=== PATIENT | male | born 1945 | race Caucasian/White ===

== ENCOUNTER 2023-05-05 13:11 | Inpatient (IN) | payer OTHER, SELFPAY ==
[2023-05-05] VITALS (20 sets, daily range): BP systolic 89–113; BP diastolic 53–73; BMI 34.3; BMI 33.9; BMI 33.5
--- NOTE | 2023-05-05 10:08 | EDRN ---
this RN attempted to place PIV and was unsuccessful, the pt states that he has a subq port and the pts does not want it accessed, IV team has been called, pt was bladder scanned as well
--- NOTE | 2023-05-05 10:10 | EDRN ---
provider notified of the pts low blood pressure
--- NOTE | 2023-05-05 10:22 | ED.GENMED ---
History of Present Illness
General
Chief Complaint: Male Genito-Urinary Symptoms
Source: patient and family
Exam Limitations: none
Time Seen by Provider: 05/05/23 09:52
Nursing documentation reviewed up to this point in time: agreed with
Travel History
Have you had any contact with someone who has COVID-19?: No
Do you have any symptoms of coronavirus? Fever > 100 degrees, chills, cough, shortness of breath, sore throat, loss of taste or smell, muscle aches, or headache?: No
History of Present Illness
History of Present Illness:
77-year-old male this with trouble urinating and hematuria saw his urologist yesterday scheduled to have a procedure as an outpatient for circumcision, he has been unable to empty his bladder noted some bleeding today, no fevers, he is on Pradaxa
Past History
Past History
ED Past Medical History: Other (Non-Hodgkin's lymphoma, DVT, traumatic intracranial hemorrhage)
ED Past Surgical History: Other (Craniotomy/evacuation of hematoma)
Social History
Tobacco: Non-smoker
Alcohol: None
Drug: None
Personal:
Living: with family
Employment: Retired
Family History
Family History: Other
Review of Systems
Review of Systems
All Other Systems: Not applicable
Constitutional: Denies fever or fatigue
EENT: Reports no symptoms
Respiratory: Reports no symptoms
Cardiac: Reports no symptoms
: Reports bleeding
Phy Exam
Physical Exam
Physical Exam:
Physical Exam
General: Chronically ill male
Neck: No jaundice
Heart: s1/s2 regular rate and rhythm, no murmur. equal radial pulses.
Lungs: no acute respiratory distress. clear bilaterally
Abdomen: Soft mild suprapubic tenderness
, retracted foreskin question extra skin between the penis and the scrotum
Neuro: alert and oriented.
Skin: no rash
Psychiatric: well kept. interactive and cooperative
Extremities: no edema.
Course
Orders/Labs/Results
Orders:
Orders
05/05/23 10:14
Del Real Placement- Treatment ONCE
Reason for insertion: Acute Retention
05/05/23 10:15
Urinalysis Reflex To Culture Urgent
Date Specimen was Collected: 05/05/23
Time Specimen was Collected: 10:25
05/05/23 10:34
Basic Metabolic Panel Urgent
Complete Blood Count/With Diff Urgent
05/05/23 11:43
CT Abd/pel Without Iv Or Oral Urgent
Comment:
Reason For Exam: arf
0.9% Sodium Chloride 1000 ml [Nss] 2,000 ml IV BOLUS
05/05/23 11:45
Blood Culture Q30M
LOGAN Source: Blood/Venous
Specimen Description:
05/05/23 11:46
Urine Culture Urgent
LOGAN Source: Urine
Specimen Description:
CefTRIAXone [Rocephin] 1,000 mg IV NOW STA
05/05/23 12:15
Blood Culture Q30M
LOGAN Source: Blood/Venous
Specimen Description:
Abnormal Lab Results
05/05/23
10:34
WBC 22.9 H 10^3/uL
(4.8-10.8)
RBC 4.59 L 10^6/uL
(4.70-6.10)
MCH 31.4 H pg
(27.0-31.0)
RDW 14.8 H %
(11.5-14.5)
MPV 11.3 H fL
(7.4-10.4)
Abs Immat Gran (auto) 0.3 H 10^3/uL
(0-0.05)
Absolute Neuts (auto) 19.3 H 10^3/uL
(1.4-6.5)
Absolute Lymphs (auto) 0.6 L 10^3/uL
(1.2-3.4)
Absolute Monos (auto) 2.8 H 10^3/uL
(0.1-0.6)
Immature Gran % 1.1 H %
(0-0.5)
Neutrophils % 84.1 H %
(42.2-75.2)
Lymphocytes % 2.6 L %
(20.5-51.1)
Monocytes % 12.0 H %
(1.7-9.3)
Carbon Dioxide 21 L mmol/L
(22-30)
BUN 45 H mg/dl
(9-20)
Creatinine 3.6 H mg/dL
(0.7-1.3)
Glucose 115 H mg/dl
(70-99)
05/05/23 10:34
05/05/23 10:34
Vital Signs
Initial and Last Documented VS:
Initial Vital Signs
Temp Pulse Resp BP Pulse Ox
98.1 F 107 20 93/62 95
05/05/23 09:29 05/05/23 09:29 05/05/23 09:29 05/05/23 09:29 05/05/23 09:29
Last Documented Vital Signs
Temp Pulse Resp BP Pulse Ox
98.1 F 107 20 91/60 95
05/05/23 09:29 05/05/23 09:29 05/05/23 09:29 05/05/23 11:00 05/05/23 09:29
MDM/Problems Addressed
Differential Diagnosis Includes:
Phimosis retention hematuria
MDM/Problems Addressed:
Phimosis retention hematuria
Chronic conditions affecting care:
Phimosis
Chronic conditions affecting care: Arrhythmia
*EKG
Interpreted by ED Provider?: NA
*Household Appliance Repairer Interpretation
Rate: normal
Interpretation: normal
Heart Rate: 78
Rhythm: sinus
*Critical Care Note
Total Time (30-74mins, 75-104mins- exclusive of procedures): 30
Update Note
Update Note:
Patient having voiding issues, he has a phimosis previously had to go to the ER to have a catheter placed reviewed with urology make sure he is taking his Flomax we will give him a trial of voiding here if not may need to have her procedure patient
family updated
11:45 AM labs are noted we will hydrate started on antibiotics urology considering the intervention will check CT right hydro
ED Attending Note
-
Portions of this chart may have been created with voice recognition software.� Occasional wrong word or��sound alike� substitutions may have occurred due to the inherent limitations of voice recognition software.
Discharge Plan
Departure
Prescriptions:
No Action
allopurinol 100 MG tablet
100 mg PO BID
lamotrigine 100 MG tablet
150 mg PO BID
acetaminophen 325 MG tablet
650 mg PO Q4HPRN PRN (Reason: mild abd pain )
tamsulosin 0.4 MG capsule
0.4 mg PO DAILY Qty: 30 0RF
finasteride 5 MG tablet
5 mg PO DAILY Qty: 30 0RF
dabigatran etexilate 150 mg Capsule
150 mg PO BID
Jardiance 10 mg Tablet
10 mg PO DAILY
furosemide [Lasix] 40 MG tablet
40 mg PO MOWEFR
Referrals:
Kingston Luu MD [Family Provider] -
Interventions
Interventions:
*Risk Screen - Suicide Last Done: 05/05/23 09:57
*General Assessment Last Done: 05/05/23 09:57
*Neglect/Abuse Screening Last Done: 05/05/23 09:57
ED- Fall Risk Assessment Last Done: 05/05/23 09:57
*ED COVID-19 Vaccine History Last Done: 05/05/23 09:29
ED-Male Genitourinary Assessment Last Done: 05/05/23 09:57
--- NOTE | 2023-05-05 10:25 | EDRN ---
this RN was unable to place 3 way indwelling urinary catheter, provider Dr. Osullivan notified
[2023-05-05 10:45] LABS: % Basophils 0.2 % (0-2); % Immature Granulocytes 1.1 % (0-0.5); % Lymphocytes 2.6 % (20.5-51.1); % Neutrophils 84.1 % (42.2-75.2); Absolute Basophils 0.1 10^3/uL (0-0.2); Absolute Immature Granulocytes 0.3 10^3/uL (0-0.05); Absolute Lymphocytes 0.6 10^3/uL (1.2-3.4); Absolute Monocytes 2.8 10^3/uL (0.1-0.6); Absolute Neutrophils 19.3 10^3/uL (1.4-6.5); Hemoglobin 14.4 g/dL (13.0-18.0); Mean Corp Hgb Conc. 33.5 g/dL (33.0-37.0); Mean Corpuscular Hgb 31.4 pg (27.0-31.0); Mean Corpuscular Volume 93.7 fL (80.0-94.0); Mean Platelet Volume 11.3 fL (7.4-10.4); Nucleated Red Blood Cells % 0 % (-); Platelet Count 164 10^3/uL (130-400); Red Blood Cell Count 4.59 10^6/uL (4.70-6.10); Red Cell Dist. Width 14.8 % (11.5-14.5); White Blood Cell Count 22.9 10^3/uL (4.8-10.8)
[2023-05-05 11:05] LABS: Blood Urea Nitrogen 45 mg/dl (9-20); Calcium 9.6 mg/dl (8.4-10.2); Carbon Dioxide 21 mmol/L (22-30); Chloride 104 mmol/L (98-107); Estimated Creatinine Clearance 21 ml/min; Glucose 115 mg/dl (70-99); Sodium 138 mmol/L (135-145); eGFR 16.77
[2023-05-05] MEDS: ROCEPHIN 1000 MG IV (12:09)
[2023-05-05] MEDS: NSS 2000 IV (12:10)
--- NOTE | 2023-05-05 12:56 | HPS.HSE ---
Family Physician
-
Family Physician: Kingston Luu
Chief Complaint
-
Hematuria, urinary retention
History of Present Illness
77-year-old male with chronic phimosis scheduled for an outpatient circumcision next week and presented to the hospital today with complaints of acute urinary retention and hematuria. Noted to be constipated yesterday as well with abdominal
discomfort.
Medical History
Past Medical History
Past Medical History: Reports Other
Additional Past Medical History:
Paroxysmal atrial fibrillation
Non-Hodgkin's lymphoma
RLE Deep vein thrombosis/pulm embolism
ICH/traumatic brain injury
TBI induced seizures
Basal cell cancer
Immunoglobin deficiency
Chronic heart failure reduced EF, dilated cardiomyopathy
Complete heart block
Diverticulosis
CKD 3b
Gout
Phimosis
BPH
Postphlebitic syndrome
Past Surgical History: Reports Other
Additional Past Surgical History:
IVC filter
Permanent pacemaker
Chemotherapy port placement
Mohs surgery for basal cell cancer
Social History
Tobacco: Non-smoker
Alcohol: None
Drug: None
Personal:
Living: With Family
Family History
Family History: Not pertinent
Allergies / Home Medications
Allergies reflects when Allergies were last updated in [facility].
Home Medications with original date entered in [facility]
Allergy/Medication List:
Allergies
Allergy/AdvReac Type Severity Reaction Status Date / Time
acetaminophen [From Percocet] Allergy Unknown Verified 05/05/23 09:34
influenza virus vaccine, Allergy pt states Verified 05/05/23 09:34
specific got sick
[Influenza Virus over the
Vacc,Specific] years with
flu shots,
has not cao
oxycodone [From Percocet] Allergy Unknown Verified 05/05/23 09:34
Home Medications
allopurinol 100 mg tablet 100 mg PO BID Gout 03/21/20
finasteride 5 mg tablet 5 mg PO DAILY #30 tabs 03/27/20
tamsulosin 0.4 mg capsule 0.4 mg PO DAILY #30 caps 03/27/20
acetaminophen 500 mg tablet (Tylenol Extra Strength) 500 mg PO Q4HPRN PRN mild pain 05/05/23
dabigatran etexilate 150 mg capsule 150 mg PO BID 05/05/23
empagliflozin 10 mg tablet (Jardiance) 10 mg PO DAILY 05/05/23
furosemide 40 mg tablet (Lasix) 40 mg PO MOWEFR@0800 05/05/23
lamotrigine 200 mg tablet 200 mg PO BID 05/05/23
lidocaine-prilocaine 2.5 %-2.5 % topical cream 1 applic topical DIRECTED apply to port site 05/05/23
Review of Systems
-
History Source: Patient and Family
A 12 point ROS was completed and negative except as noted: Yes
Abdomen/GI: Reports Constipated
: Reports Difficulty Voiding and Bleeding
Physical Exam
Vital Signs
Vital Signs
Temp Pulse Resp BP Pulse Ox
98.1 F 87 20 99/59 95
05/05/23 09:29 05/05/23 12:04 05/05/23 09:29 05/05/23 12:00 05/05/23 09:29
Physical Exam
General: Well Developed, Well Nourished, No Apparent Distress and Comfortable
HEENT: NormoCephalic, Anicteric and Moist mucous membranes
Respiratory: Clear
Cardiac: S1/S2 and Regular Rhythm
GI: Soft, Non Tender and Non Distended
Genito-urinary: Deferred by me
Musculoskeletal: No Clubbing, No Cyanosis and No Edema
Skin: Warm and Dry
Neuro: AO x 3
Hematologic/Lymphatic: No Lymphadenopathy
Psych: Calm
Laboratory Results
-
05/05/23 10:34
05/05/23 10:34
Laboratory Results
Total Bilirubin Cancelled 05/05/23 10:34
AST Cancelled 05/05/23 10:34
ALT Cancelled 05/05/23 10:34
Alkaline Phosphatase Cancelled 05/05/23 10:34
Impression/Plan
-
PINEDA on CKD 3b - suspect PINEDA due to obstructive process due to known phimosis as well as BPH. CT scan pending. Will need Del Real catheter. Consult urology. Admit to IMU given unstable hemodynamics.
Creatinine 3.6 today, BUN 45. Baseline creatinine appears to be 2.0 from February 2023. Verified in [facility].
Leukocytosis -without signs or symptoms of sepsis. Check urinalysis, rule out UTI. Await cultures. Continue empiric ceftriaxone for now.
Hypotension -possibly due to urinary retention, rule out volume depletion. Received IV fluid bolus in the emergency room. Monitor fluid status closely given chronic heart failure history. Hold furosemide for now.
Paroxysmal atrial fibrillation -hold Pradaxa given gross hematuria.
History of non-Hodgkin's lymphoma
Chronic hypogammaglobulinemia -gets as needed IVIG, Dr. Lozano orders.
Chronic heart failure reduced EF -currently compensated. Hold furosemide in the setting of PINEDA. LVEF 25 to 30% on echocardiogram from February 2023, stage I diastolic dysfunction, no significant valvular disease.
Gout -stable.
History of complete heart block -has permanent pacemaker.
Full code
Updated at the bedside.
[2023-05-05 13:54] LABS: Urine Albumin 3+ (Neg - Trace); Urine Bilirubin Negative (Negative); Urine Glucose 2+ (Negative); Urine Ketone Trace (Negative); Urine Leukocyte 2+ (Negative); Urine Nitrite Negative (Negative); Urine Occult Blood 4+ (Negative); Urine Specific Gravity 1.015 (<1.030); Urine Urobilinogen Negative (Neg - 1+); Urine pH 6.5 (5.0-9.0)
[2023-05-05 13:55] LABS: Urine Character Very Cloudy (Clear); Urine Color Brown
[2023-05-05 14:32] LABS: Urine Bacteria Few (Negative); Urine Red Blood Cell >100 /HPF (0-2); Urine White Cell 26-30 /HPF (0-5)
--- NOTE | 2023-05-05 17:19 | W.IMMPOSTOP ---
Surgical Immed Post Op Note
-
Primary Surgeon: Otis
Pre-op Diagnosis: PINEDA, urinary retention, hematuria, severe phimosis
Post-op Diagnosis: Same
Procedure Performed: foreskin dilation, meatal dilation, cystoscopy, complicated catheter placement
Anesthesia Type: IV sedation
Specimen / Cultures: None/None
Estimated Blood Loss: 3 cc
Drains: 20Fr [place] tip catheter
Complications: None
Operative Findings: significant penoscrotal scarring, significant phmosis w/ thickened prepuce, preputial scarring noted on cysto, anterior urethra patent w/o strictures
[2023-05-05 17:42] LABS: Glucose - Point of Care 96 mg/dl (70-99)
[2023-05-05] MEDS: NSS 1000 IV (18:11)
--- NOTE | 2023-05-05 20:08 | PTCARENOTE ---
Patient arrived to room 3351 at 1900 while I was receiving report from day RN. Pt appears A/O x3 and tearful, support given. [address], Sp02 95%. Del Real draining brown urine to gravity. IVF infusing. Pt eating boxed sandwich. Denies any pain,
nausea, or sob. at bedside; reports last admission pt had hallucinations and possibly sun downing. Pt in a room near nurses station. Call garcia within reach upon leaving room. Bed alarm set for safety.
[2023-05-05] MEDS: LAMICTAL 200 MG PO (20:55)
[2023-05-05] MEDS: ZYLOPRIM 100 MG PO (20:56)
[2023-05-05] MEDS: HEPARIN 5000 UNITS SC (20:56)
[2023-05-06] VITALS (29 sets, daily range): BP systolic 84–122; BP diastolic 49–72; BMI 33.9
--- NOTE | 2023-05-06 08:00 | PTCARENOTE ---
Patient received from night shift manager. Patient resting comfortably in bed. AAO although confused at times, VSS BP a little on the lower side. No events noted overnight. No complaints of pain at this time. Del Real in place, yellow dark urine. Call
garcia in reach.
[2023-05-06] MEDS: FLOMAX 0.400000000000000022 MG PO (08:32)
[2023-05-06] MEDS: HEPARIN 5000 UNITS SC ×2 (08:32→21:11)
[2023-05-06] MEDS: PROSCAR 5 MG PO (08:32)
[2023-05-06] MEDS: ZYLOPRIM 100 MG PO ×2 (08:32→21:11)
[2023-05-06] MEDS: LAMICTAL 200 MG PO ×2 (08:32→21:12)
--- NOTE | 2023-05-06 08:36 | W.PN.HOSP.TC ---
Addendum entered and electronically signed by Bill Alejo DO 05/06/23 13:39:
Yes, hematuria is related to/associated with/exacerbated by Pradaxa use
Original Note:
Today's Communication/Plan
-
Await cultures
Await labs
PT/OT
Check orthostatics
Assessment / Plan
Assessment / Plan
Gen-AAOx3, NAD
HEENT-NC, AT, anicteric, clear oral mm
Neck-supple
CV-reg, no M, +S1/S2
Lungs-clear B/L
Abd-soft, NT, ND
Ext-no edema
Musculoskeletal-no cyanosis, clubbing
Skin-warm and dry
Neuro-grossly non-focal
Psych-calm, cooperative
PINEDA on CKD 3b - suspect PINEDA due to obstructive process due to severe phimosis as well as BPH.� Labs pending for today. CT scan shows mild right renal collecting system and right ureteral dilation without obvious radiopaque calculus.
Leukocytosis -without signs or symptoms of sepsis.� Check urinalysis, rule out UTI.� Await cultures.� Continue empiric ceftriaxone for now.
Hypotension -possibly due to urinary retention, rule out volume depletion.�Hold furosemide for now. Blood pressure still relatively low today. Unclear what his baseline blood pressure is. Does not seem to be symptomatic.
Paroxysmal atrial fibrillation -hold Pradaxa given gross hematuria.
History of non-Hodgkin's lymphoma
Chronic hypogammaglobulinemia -gets as needed IVIG, Dr. Lozano orders.
Chronic heart failure reduced EF -currently compensated.� Hold furosemide in the setting of PINEDA.� LVEF 25 to 30% on echocardiogram from February 2023, stage I diastolic dysfunction, no significant valvular disease.
Gout -stable.
History of complete heart block -has permanent pacemaker.
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
Full code
PT/OT
Anticipated Discharge: 24 - 48 hours
Subjective/Interval History
-
Date of Service: May 06, 2023
Patient seen and examined. No complaints this morning.
Objective Data
-
Labs:
Laboratory Results
05/06/23
08:30
WBC Pending
Hgb Pending
Hct Pending
Plt Count Pending
Sodium Pending
Potassium Pending
Chloride Pending
Carbon Dioxide Pending
BUN Pending
Creatinine Pending
Glucose Pending
Calcium Pending
Total Bilirubin Pending
AST Pending
ALT Pending
Alkaline Phosphatase Pending
Vital Signs:
Vital Signs
Temp Pulse Resp BP Pulse Ox
99.8 F 86 25 90/49 95
05/06/23 07:34 05/06/23 06:30 05/06/23 06:30 05/06/23 06:00 05/06/23 06:30
I&O
05/05/23 05/06/23 05/07/23
06:59 06:59 06:59
Intake Total 1200 / 1200
Output Total 775 / 775
Balance 425 / 425
Review of Systems
-
History Source: Patient
All other systems: Reviewed and negative
--- NOTE | 2023-05-06 09:52 | CM ---
Patient with Hx NHL Dx PINEDA, severe phimosis, BPH, hypotension, PAF, s/p cystoscopy, khanna placement. O2 2L. Receiving IV ceftriaxone. Per nurse assessment; confused.
Spoke with patient's Mery;
The patient resides with his in a 2 story house.
The patient was Independent for ADLs/ambulation without using any assistive devices.
DME - RW, rollator, w/c, commode
VN - prior VN
SNF - [facility] ([facility]
AR - Jr
PCP - Kingston Luu
Pharmacy - [facility], [place]
Offered VN due to khanna and agrees with VN again.
Referral to RAOU[facility] Smith.
Plan home with [facility].
[2023-05-06 11:16] LABS: % Basophils 0.4 % (0-2); % Eosinophils 0.8 % (0-6); % Immature Granulocytes 0.5 % (0-0.5); % Lymphocytes 3.9 % (20.5-51.1); % Monocytes 7.3 % (1.7-9.3); % Neutrophils 87.1 % (42.2-75.2); Absolute Basophils 0.1 10^3/uL (0-0.2); Absolute Eosinophils 0.1 10^3/uL (0-0.7); Absolute Immature Granulocytes 0.1 10^3/uL (0-0.05); Absolute Lymphocytes 0.4 10^3/uL (1.2-3.4); Absolute Monocytes 0.8 10^3/uL (0.1-0.6); Absolute Neutrophils 9.8 10^3/uL (1.4-6.5); Hematocrit 36.6 % (39.0-52.0); Hemoglobin 12.1 g/dL (13.0-18.0); Mean Corp Hgb Conc. 33.1 g/dL (33.0-37.0); Mean Corpuscular Hgb 30.6 pg (27.0-31.0); Mean Corpuscular Volume 92.7 fL (80.0-94.0); Mean Platelet Volume 11.2 fL (7.4-10.4); Nucleated Red Blood Cells % 0 % (-); Platelet Count 111 10^3/uL (130-400); Red Blood Cell Count 3.95 10^6/uL (4.70-6.10); Red Cell Dist. Width 15.3 % (11.5-14.5); White Blood Cell Count 11.3 10^3/uL (4.8-10.8)
[2023-05-06] MEDS: STERILE WATER FOR INJECTION 10 ML IV (12:05)
[2023-05-06] MEDS: ROCEPHIN 1000 MG IV (12:05)
[2023-05-06] MEDS: TYLENOL 500 MG PO (12:10)
--- NOTE | 2023-05-06 12:27 | W.PN.SURGUPD ---
Surgical Update
Surgical Update
Del Real catheter draining clear urine: Enterococcus in urine
Blood cultures negative
Leukocytosis improved
BMP pending
---
Patient comfortable
Will need to hold Pradaxa in anticipation of complex circumcision scheduled for 05/11/23
Keep Del Real until scheduled circumcision: discussed with patient and
[2023-05-06] MEDS: NSS 500 IV (12:51)
[2023-05-06] MEDS: ProAmatine 5 MG PO ×2 (12:51→18:18)
[2023-05-06 13:14] LABS: ALT (SGPT) 17 U/L (0-50); AST (SGOT) 31 U/L (17-59); Albumin 3.2 g/dl (3.5-5.0); Alkaline Phosphatase 64 U/L (38-126); Blood Urea Nitrogen 46 mg/dl (9-20); Calcium 8.2 mg/dl (8.4-10.2); Carbon Dioxide 21 mmol/L (22-30); Chloride 108 mmol/L (98-107); Estimated Creatinine Clearance 28 ml/min; Glucose 104 mg/dl (70-99); Potassium 4.3 mmol/L (3.5-5.1); Sodium 134 mmol/L (135-145); Total Bilirubin 0.5 mg/dl (0.2-1.3); Total Protein 5.2 g/dl (6.3-8.2); eGFR 23.68
--- NOTE | 2023-05-06 13:18 | PN.CDI ---
CDI
- -
CDI:
Physician Documentation Request
Admit Date: 05/05/23 13:11
Dear Doctor Melo,
Clinical Indicators:
Patient with PINEDA due to obstructive process, severe phimosis & BPH.
05/06 PN, 'Paroxysmal atrial fibrillation -hold Pradaxa given gross hematuria.'
Please clarify if there is a relationship between the hematuria and Pradaxa use:
Yes, hematuria is related to/associated with/exacerbated by Pradaxa use.
No, hematuria is not related to/associated with/exacerbated by Pradaxa use but it is due to ___. (Please specify)
Unable to determine
Use of terms such as suspected, likely, concern for, or probable (associated with a specific diagnosis that is being evaluated, monitored, or treated as if it exists) are acceptable and can be coded in the inpatient setting, when documented at the
time of discharge.
Thank you,
DENISE Cunningham RN
CDI Specialist
available via tiger text
Please use your independent medical judgment in providing your response.
[2023-05-06] MEDS: LEVOPHED 250 IV (14:37)
--- NOTE | 2023-05-06 16:32 | PHA.VAN.IN ---
Assessment
- Assessment
Renal Function: Unknown baseline (SCR 3.6-->2.7 since admission)
Concomitant Antimicrobials: ceftriaxone
Plan
- Plan
Initial / Loading Dose: 2000mg - administration pending
Maintenance Regimen: dosing by level
Monitoring: random 05/07 599
Pharmacokinetics Vancomycin I
- -
Patient Age: 77
Patient Sex: Male
Vancomycin Day #: 1
Indication: Genito-Urinary Tract
Requesting Provider: Dr. Alejo
Pertinent Antimicrobial Allergies:
no pertinent antibiotic allergies
Height / Weight:
Height 5 ft 9 in
Actual Weight 104 kg
Pertinent Past Medical History: BMI ~34, CKD
- Vital Signs / Lab Results
Temp Pulse Resp BP Pulse Ox
100.8 F H 68 19 84/52 96
05/06/23 11:47 05/06/23 14:00 05/06/23 14:00 05/06/23 13:44 05/06/23 14:00
Lab Results - Hematology
05/05/23 05/06/23
10:34 11:01
WBC 22.9 H 11.3 H
Lab Results - Chemistry
05/05/23 05/06/23 05/06/23
10:34 11:01 12:46
BUN 45 H Cancelled 46 H
Creatinine 3.6 H Cancelled 2.7 H
Estimated Creat Clear 21 Cancelled 28
Albumin Cancelled Cancelled 3.2 L
Lab Results - Urine
05/05/23
12:06
Urine Nitrite (Reflex) Negative
Leukocyte Esterase Rfl 2+ A
Urine WBC (Reflex) 26-30 A
Ur Squamous Epith Cells 6-10
Urine Bacteria (Reflex) Few A
Microbiology Results
05/05/23 12:06 Blood Culture - Preliminary
Blood/Venous No Growth in 24 hours- Final report to follow
05/05/23 12:06 Blood Culture - Preliminary
Blood/Venous No Growth in 24 hours- Final report to follow
05/05/23 12:06 Urine Culture - Preliminary
Urine Enterococcus species
--- NOTE | 2023-05-06 17:39 | CON.ID ---
Consultation
-
Date/Time Consultation Requested: 05/06/2023 14:03
Date/Time Consultation Performed: 05/06/2023 1730
Requesting Provider: Dr. Alejo
Performing Provider: Dr. Cobos
Reason for Consultation: Leukocytosis; complicated urinary tract infection
Chief Complaint / Past History
History of Present Illness
Jacinto Doherty is a 77-year-old man with a significant past medical history of NHL and chronic phimosis being evaluated at the request of Dr. Alejo regarding a complicated urinary tract infection. History is obtained from chart review, along
with patient interview.
The patient has been dealing with a chronic phimosis, and reports that he was scheduled for an outpatient circumcision next week. He presented to [facility] ER on 05/05/2023 following the development of acute urinary retention along with
hematuria. He reports that over several days he was having retention and ultimately he came to the hospital for further evaluation.
In the emergency room he was found to have a marked leukocytosis. A CT scan was performed which revealed significant urinary retention. Del Real catheter was unable to be passed and Urology was asked to evaluate. The patient went to the OR late last
evening and underwent catheter placement. Urine cultures are now revealing growth of Enterococcus, and Infectious Diseases is asked to comment on further antibiotic management.
Patient denies any fevers or chills prior to admission. Since admission he has developed 1 fever to 100.8 degrees earlier today. He currently denies any pain. He denies any abdominal discomfort. He denies any flank discomfort.
Past History
Additional Past Medical History:
Paroxysmal A-fib
Non-Hodgkin lymphoma
DVT
CVA (traumatic intracranial hemorrhage)
Seizure disorder
Chronic phimosis
Additional Past Surgical History:
IVC filter
PPM placement
Port-A-Cath
Allergy History:
acetaminophen [From Percocet] Allergy (Verified 05/05/23 09:34)
Unknown
influenza virus vaccine, specific [Influenza Virus Vacc,Specific] Allergy (Verified 05/05/23 09:34)
pt states got sick over the years with flu shots, has not cao
Influenza Virus Vaccines Allergy (Verified 05/05/23 17:56)
Unknown
oxycodone [From Percocet] Allergy (Verified 05/05/23 09:34)
Unknown
Medications Reviewed: Yes
Current Antibiotics:
Ceftriaxone
Vancomycin
Social History
Tobacco: Non-Smoker
Alcohol: None
Drug: None
Personal:
Living: With Family
Employment: Retired
Family History
Family History: Not Pertinent
Review of Systems
Vital Signs
Temp Pulse Resp BP Pulse Ox
99.0 F 68 19 84/52 96
05/06/23 15:50 05/06/23 14:00 05/06/23 14:00 05/06/23 13:44 05/06/23 14:00
Physical Exam
Physical Exam
Constitutional: No Acute Distress, Comfortable and Non-toxic
Head: Normocephalic
Eyes: Pupils Equal, Pupils Round, No Conjunctival Hemorrhage and Sclera Anicteric
Oral: No Thrush and No Ulcers
Cardiovascular: Regular Rate and S1/S2; Negative S3/S4
Pulmonary: Clear; Negative Wheezes, Rales or Rhonchi
Gastrointestinal: Soft, Non Tender, Non Distended, Normal Bowel Sounds, No Rebound and No Guarding
Genito-Urinary: Del Real
Extremities: Venous Insufficiency (Bilateral lower extremities); Negative Edema, Cyanosis, Erythema or Splinter Hemorrhage
Skin: Warm and Dry; Negative Rash or Jaundice
Neurological: Awake and Alert
Psychological: Calm
.
Lab / Diagnostic Study Results
05/06/23 11:01
05/06/23 12:46
Abs Immat Gran (auto) 0.1 10^3/uL (0-0.05) H 05/06/23 11:01
Absolute Neuts (auto) 9.8 10^3/uL (1.4-6.5) H 05/06/23 11:01
Absolute Lymphs (auto) 0.4 10^3/uL (1.2-3.4) L 05/06/23 11:01
Absolute Monos (auto) 0.8 10^3/uL (0.1-0.6) H 05/06/23 11:01
Absolute Basos (auto) 0.1 10^3/uL (0-0.2) 05/06/23 11:01
Immature Gran % 0.5 % (0-0.5) 05/06/23 11:01
Neutrophils % 87.1 % (42.2-75.2) H 05/06/23 11:01
Lymphocytes % 3.9 % (20.5-51.1) L 05/06/23 11:01
Monocytes % 7.3 % (1.7-9.3) 05/06/23 11:01
Eosinophils % 0.8 % (0-6) 05/06/23 11:01
Basophils % 0.4 % (0-2) 05/06/23 11:01
Ur Squamous Epith Cells 6-10 /LPF (Few) 05/05/23 12:06
Microbiology Results
Micro:
05/05/23 12:06 Blood Culture - Preliminary
Blood/Venous No Growth in 24 hours- Final report to follow
05/05/23 12:06 Blood Culture - Preliminary
Blood/Venous No Growth in 24 hours- Final report to follow
05/05/23 12:06 Urine Culture - Preliminary
Urine Enterococcus species
Imaging:
05/05/2023 CT abdomen/pelvis without contrast: Mild right renal collecting system and right ureteral dilatation without findings to suggest radiopaque calculus. Unopacified urinary bladder, limited, without gross focal intrinsic abnormalities. IVC
filter is in place. Sigmoid diverticulosis noted. Please see full dictation for additional detail.
Assessment / Plan
Leukocytosis
Enterococcal UTI (complicated)
PINEDA on CKD
Chronic phimosis s/p Del Real placement in OR.
Hx immunoglobulin deficiency
Paroxysmal A-fib
Non-Hodgkin lymphoma
DVT
CVA (traumatic intracranial hemorrhage)
Seizure disorder
Hx of basal cell CA
Chronic heart failure
Diverticulosis
Recommendations:
Discontinue further ceftriaxone and Rocephin.
Will transition to IV ampicillin for the time being pending further cultures, dosed for renal insufficiency.
Monitor white count and temperature curve.
Follow pending cultures.
Await final susceptibility data to guide antibiotic selection and de-escalation.
[2023-05-06] MEDS: VANCOCIN 540 MG IV (18:18)
[2023-05-06] MEDS: AMPICILLIN 108 MG IV (21:11)
[2023-05-07] VITALS (26 sets, daily range): BP systolic 87–114; BP diastolic 50–67; PULSE 70–83; O2SAT 98; BMI 34.8
--- NOTE | 2023-05-07 00:05 | PTCARENOTE ---
Rec'd pt at change of shift. Pt on levophed gtt through SQ port and abx through peripheral IV. Peripheral IV assessed to be infiltrated, abx stopped. IVT called to assess site. Pt maintained MAP >65 for more than 4hrs. Levophed gtt removed. BP
assessed frequently and maintained MAP >65 at this time. called this unit for update on pt status, update provided by this RN and encouraged to call with any additional concerns. Del Real catheter intact with brown to mike drainage. Pt
drowsy, assessed as documented. Resting comfortably at this time, call garcia within reach.
[2023-05-07] MEDS: AMPICILLIN 108 MG IV ×3 (03:27→20:23)
[2023-05-07 04:50] LABS: % Basophils 0.4 % (0-2); % Eosinophils 4.6 % (0-6); % Immature Granulocytes 0.3 % (0-0.5); % Lymphocytes 10.3 % (20.5-51.1); % Monocytes 13.9 % (1.7-9.3); % Neutrophils 70.5 % (42.2-75.2); Absolute Eosinophils 0.3 10^3/uL (0-0.7); Absolute Lymphocytes 0.8 10^3/uL (1.2-3.4); Absolute Neutrophils 5.2 10^3/uL (1.4-6.5); Hematocrit 35.8 % (39.0-52.0); Hemoglobin 11.5 g/dL (13.0-18.0); Mean Corp Hgb Conc. 32.1 g/dL (33.0-37.0); Mean Corpuscular Hgb 30.8 pg (27.0-31.0); Nucleated Red Blood Cells % 0 % (-); Platelet Count 103 10^3/uL (130-400); Red Blood Cell Count 3.73 10^6/uL (4.70-6.10); Red Cell Dist. Width 15.2 % (11.5-14.5); White Blood Cell Count 7.4 10^3/uL (4.8-10.8)
[2023-05-07 05:18] LABS: Blood Urea Nitrogen 44 mg/dl (9-20); Carbon Dioxide 23 mmol/L (22-30); Chloride 106 mmol/L (98-107); Estimated Creatinine Clearance 30 ml/min; Glucose 137 mg/dl (70-99); Potassium 4.2 mmol/L (3.5-5.1); Sodium 138 mmol/L (135-145); eGFR 25.98
[2023-05-07 06:02] LABS: Vancomycin Random 16.5 ug/ml
--- NOTE | 2023-05-07 08:22 | W.PN.HOSP.TC ---
Today's Communication/Plan
-
Continue antibiotics
Increase midodrine dose
Assessment / Plan
Assessment / Plan
Gen-AAOx3, NAD
HEENT-NC, AT, anicteric, clear oral mm
Neck-supple
CV-reg, no M, +S1/S2
Lungs-clear B/L
Abd-soft, NT, ND
Ext-no edema
Musculoskeletal-no cyanosis, clubbing
Skin-warm and dry
Neuro-grossly non-focal
Psych-calm, cooperative
Septic shock -present on admission. Due to UTI, urinary retention, severe phimosis. Blood cultures negative. Urine culture shows Enterococcus species. Appreciate ID input. Continue IV ampicillin. White blood cell count improved, afebrile today.
Briefly required Levophed yesterday now off. Still hypotensive, increase midodrine to 10 mg 3 times daily.
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 CT scan shows mild right renal collecting system and right ureteral dilation without obvious radiopaque calculus. Creatinine coming down, 2.5 today.
Baseline appears to be around 1.9
Acute thrombocytopenia -probably due to sepsis. Monitor for now.
Paroxysmal atrial fibrillation -hold Pradaxa given gross hematuria. Also, plan for complex circumcision on May 11 as per urology.
Severe phimosis -plan for circumcision on May 11. Hold Pradaxa.
History of non-Hodgkin's lymphoma
Chronic hypogammaglobulinemia -gets as needed IVIG, Dr. Lozano orders.
Chronic heart failure reduced EF -currently compensated.� Hold furosemide in the setting of PINEDA.� LVEF 25 to 30% on echocardiogram from February 2023, stage I diastolic dysfunction, no significant valvular disease.
Gout -stable.
History of complete heart block -has permanent pacemaker.
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
Full code
PT/OT
Anticipated Discharge: > 48 hours
Subjective/Interval History
-
Date of Service: May 07, 2023
Patient seen and examined. No complaints.
Objective Data
-
Labs:
Laboratory Results
05/07/23
04:27
WBC 7.4
Hgb 11.5 L
Hct 35.8 L
Plt Count 103 L
Sodium 138
Potassium 4.2
Chloride 106
Carbon Dioxide 23
BUN 44 H
Creatinine 2.5 H
Glucose 137 H
Calcium 8.0 L
Vital Signs:
Vital Signs
Temp Pulse Resp BP Pulse Ox
99.2 F 70 21 90/61 95
05/07/23 03:25 05/07/23 06:18 05/07/23 06:18 05/07/23 06:18 05/07/23 06:18
I&O
05/06/23 05/07/23 05/08/23
06:59 06:59 06:59
Intake Total 1200 / 1200 1985 / 1985
Output Total 775 / 775 1850 / 1850
Balance 425 / 425 136 / 136
Review of Systems
-
History Source: Patient
All other systems: Reviewed and negative
--- NOTE | 2023-05-07 08:30 | PTCARENOTE ---
Patient received from electromechanical assembly technician. Patient resting comfortably in bed, PT to work with patient and get him to the chair. AAO although still confused at times, VSS. BP more stable and off Levo at this time. Midodrine increased to 10mg. No events
noted overnight. No complaints of pain at this time. Del Real in place, yellow dark urine. Call garcia in reach.
--- NOTE | 2023-05-07 08:58 | W.PN.UPDATE ---
Update Note
Progress Note Update
Leukocytosis resolved
Creatinine improving
Del Real draining well
Foreskin phimotic with dense adhesions
---
Continue antibiotics
Hold anticoagulant therapies in anticipation of complex circumcision 05/11/23
[2023-05-07] MEDS: HEPARIN 5000 UNITS SC ×2 (09:33→19:48)
[2023-05-07] MEDS: ProAmatine 10 MG PO ×3 (09:33→17:39)
[2023-05-07] MEDS: ZYLOPRIM 100 MG PO ×2 (09:34→19:48)
[2023-05-07] MEDS: LAMICTAL 200 MG PO ×2 (09:34→19:47)
[2023-05-07] MEDS: PROSCAR 5 MG PO (09:34)
[2023-05-07] MEDS: FLOMAX 0.400000000000000022 MG PO (09:34)
[2023-05-07] MEDS: ProAmatine PO (09:39)
--- NOTE | 2023-05-07 10:43 | VNURNOTE ---
Home Health Liaison spoke with patient's Mery by phone at 1030 to discuss [facility] nurse/therapy, visits, schedule and homebound status. Mery is agreeable and understands that visits at home will be 2-3 x per week to assess and teach medical
management.
Mery is aware that [facility] will contact them for start of care in 1-2 days after discharge from .
[facility] referral accepted in [facility].
--- NOTE | 2023-05-07 15:21 | W.PN.ID1 ---
Date of Service
Date of Service: May 07, 2023
Today's Communication
Continue antibiotics
Assessment / Plan
Leukocytosis
Enterococcal UTI (complicated)
PINEDA on CKD
Chronic phimosis s/p Del Real placement in OR.
Hx immunoglobulin deficiency
Paroxysmal A-fib
Non-Hodgkin lymphoma
DVT
CVA (traumatic intracranial hemorrhage)
Seizure disorder
Hx of basal cell CA
Chronic heart failure
Diverticulosis
Recommendations:
Continue ampicillin.
Monitor white count and temperature curve.
Follow pending cultures.
����������������������������������������������������������
Chief Complaint
-: UTI
Subjective / Review of Systems
Review of Systems: No Fever and No Chills
Vital Signs / Physical Exam
Vital Signs
Vital Signs
Temp Pulse Resp BP Pulse Ox
97.6 F 68 23 100/62 96
05/07/23 11:14 05/07/23 12:42 05/07/23 11:00 05/07/23 12:42 05/07/23 11:06
Physical Exam
Constitutional: No Acute Distress, Comfortable and Non-toxic
Eyes: Sclera Anicteric
Cardiovascular: S1/S2; Negative S3/S4
Pulmonary: Clear and Non Labored
Gastrointestinal: Soft, Non Tender and Non Distended
Genito-Urinary: Del Real and Turbid Urine; Negative Hematuria
Extremities: Negative Edema, Cyanosis or Erythema
Neurological: Awake and Alert
Psychological: Calm
Objective Data
Lab Data
Lab Results
05/07/23 04:27
05/07/23 04:27
Estimated Creat Clear 30 ml/min 05/07/23 04:27
Total Bilirubin 0.5 mg/dl (0.2-1.3) 05/06/23 12:46
AST 31 U/L (17-59) 05/06/23 12:46
ALT 17 U/L (0-50) 05/06/23 12:46
Alkaline Phosphatase 64 U/L (38-126) 05/06/23 12:46
Most recent labs reviewed.
Micro Results:
05/05/23 12:06 Blood Culture - Preliminary
Blood/Venous No Growth in 48 hours- Final report to follow
05/05/23 12:06 Blood Culture - Preliminary
Blood/Venous No Growth in 48 hours- Final report to follow
05/05/23 12:06 Urine Culture - Final
Urine Enterococcus faecalis
Urine Culture Final 05/07/23-1017
CC: Greater than 100,000 CFU/ML Enterococcus faecalis
Organism 1 Enterococcus faecalis
1. Enterococcus faecalis
M.I.C. RX
--------- ---
Ampicillin <=2 S
Gentamicin Synergy Screen <=500 S
Levofloxacin <=1 S
Nitrofurantoin-Urine Only <=32 S
Tetracycline >8 R
Vancomycin 2 S
Imaging:
05/05/2023 CT abdomen/pelvis without contrast: Mild right renal collecting system and right ureteral dilatation without findings to suggest radiopaque calculus. Unopacified urinary bladder, limited, without gross focal intrinsic abnormalities. IVC
filter is in place. Sigmoid diverticulosis noted. Please see full dictation for additional detail.
[2023-05-07] MEDS: MIRALAX 17 GRAMS PO (15:59)
[2023-05-07] MEDS: COLACE 100 MG PO (19:47)
[2023-05-08] VITALS (23 sets, daily range): BP systolic 91–132; BP diastolic 55–115; BMI 34.4
--- NOTE | 2023-05-08 02:10 | PTCARENOTE ---
Pt AAOx3, did not exhibit forgetfulness during conversations with this RN. Pt discussed plan of care and familial support with this RN. Ambulated stand/pivot to [facility] [place] with assist of 2. Pt did have difficulty sitting comfortably on the commode d/t
scrotal pain. This RN was able to place an absorbent pad underneath the pt's scrotum to help relieve pressure. Pt attempted to have a BM, but was unsuccessful. AV paced on monitoring analyst. Pt was on RA at the start of this RN's shift, but fell
asleep and SaO2 was observed to fall to 83%. Pt woken up and placed on 1L O2 with relief to 97%. Assessment as documented.
[2023-05-08] MEDS: AMPICILLIN 108 MG IV (04:47)
[2023-05-08 05:20] LABS: % Basophils 0.3 % (0-2); % Immature Granulocytes 0.5 % (0-0.5); % Lymphocytes 14.6 % (20.5-51.1); % Neutrophils 60.6 % (42.2-75.2); Absolute Eosinophils 0.4 10^3/uL (0-0.7); Absolute Lymphocytes 0.9 10^3/uL (1.2-3.4); Absolute Monocytes 1.1 10^3/uL (0.1-0.6); Absolute Neutrophils 3.6 10^3/uL (1.4-6.5); Hematocrit 36.2 % (39.0-52.0); Hemoglobin 11.6 g/dL (13.0-18.0); Mean Corpuscular Hgb 30.6 pg (27.0-31.0); Mean Corpuscular Volume 95.5 fL (80.0-94.0); Mean Platelet Volume 11.3 fL (7.4-10.4); Nucleated Red Blood Cells % 0 % (-); Platelet Count 117 10^3/uL (130-400); Red Blood Cell Count 3.79 10^6/uL (4.70-6.10); Red Cell Dist. Width 15.1 % (11.5-14.5)
[2023-05-08 05:47] LABS: Blood Urea Nitrogen 40 mg/dl (9-20); Carbon Dioxide 23 mmol/L (22-30); Chloride 106 mmol/L (98-107); Estimated Creatinine Clearance 38 ml/min; Glucose 117 mg/dl (70-99); Potassium 4.3 mmol/L (3.5-5.1); Sodium 138 mmol/L (135-145); eGFR 33.95
--- NOTE | 2023-05-08 05:51 | PTCARENOTE ---
Assumed care for pt 3a-7a. pt aaox3, pleasant. no c/o sob or pain. av paced, 1LHS. ivabx given. all assessment findings the same. Thorough khanna care given, top of penis weeping serosanguineous & purulent drainage. No other issues at this time. Pt
sleeping, call garcia in reach.
--- NOTE | 2023-05-08 07:28 | W.PN.URO.CBU ---
Today's Communication / Plan
-
continue khanna and antibx
OR wednesday for circ
Assessment / Plan
-
urinary retention
phimosis
UTI
s/p foreskin dilation and cysto/khanna placement
urine clear and khanna in place
on pcn for enterococcal UTI
blood thinners on hold in anticipation of OR circ on wednesday
Diagnosis
-
Date of Service: May 08, 2023
-
Patient Diagnosis:
phimosis with urinary retention
enterococcal UTI
Subjective
-
pt asleep
khanna in place
urine clear
Objective
-
Vital Signs
Temp Pulse Resp BP Pulse Ox
98.1 F 62 17 95/61 95
05/08/23 03:18 05/08/23 06:00 05/08/23 06:00 05/08/23 06:00 05/08/23 06:00
Intake and Output
05/07/23 05/08/23 05/09/23
06:59 06:59 06:59
Intake Total 1985 / 1985 1740 / 1740
Output Total 1849 1750 / 1750
Balance 136 / 136 -10 / -10
Intake:
Oral fluids 700 / 700 1440 / 1440
IV fluids (Total) 500 / 500
IV piggybacks 786 / 786 300 / 300
Output:
Urine, Khanna 185 / 1849 750 / 750
Urine, Voided 1000 / 1000
Laboratory Results
05/08/23 04:46
05/08/23 04:46
Physical Exam
-
General - no acute distress
Abdomen - soft, non-tender
Genitalia - khanna- phimotic foreskin- urine clear
--- NOTE | 2023-05-08 08:12 | W.PN.HOSP.TC ---
Today's Communication/Plan
-
Increase bowel regimen
Monitor blood pressures
Continue PT/OT
Possible transfer out of IMU
Assessment / Plan
Assessment / Plan
Gen-AAOx3, NAD
HEENT-NC, AT, anicteric, clear oral mm
Neck-supple
CV-reg, no M, +S1/S2
Lungs-clear B/L
Abd-soft, NT, ND
Ext-no edema
Musculoskeletal-no cyanosis, clubbing
Skin-warm and dry
Neuro-grossly non-focal
Psych-calm, cooperative
Septic shock -present on admission. Due to UTI, urinary retention, severe phimosis. Blood cultures negative. Urine culture shows Enterococcus faecalis. Appreciate ID input. Continue IV ampicillin. White blood cell count improved, afebrile
today.
Blood pressure still relatively low despite midodrine 10 mg 3 times daily. Monitor for now.
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 CT scan shows mild right renal collecting system and right ureteral dilation without obvious radiopaque calculus. Creatinine coming down, 2.0 today.
Baseline appears to be around 1.9
Acute thrombocytopenia -probably due to sepsis. Monitor for now. Counts relatively stable.
Paroxysmal atrial fibrillation -hold Pradaxa given gross hematuria. Also, plan for complex circumcision on May 11 as per urology.
Severe phimosis -plan for circumcision on May 11. Hold Pradaxa.
Constipation -increase bowel regimen.
History of non-Hodgkin's lymphoma
Chronic hypogammaglobulinemia -gets as needed IVIG, Dr. Lozano orders.
Chronic heart failure reduced EF -currently compensated.� Hold furosemide in the setting of PINEDA.� LVEF 25 to 30% on echocardiogram from February 2023, stage I diastolic dysfunction, no significant valvular disease.
Gout -stable.
History of complete heart block -has permanent pacemaker.
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
Full code
PT/OT -SNF recommended on discharge.
Anticipated Discharge: > 48 hours
Subjective/Interval History
-
Date of Service: May 08, 2023
Patient seen and examined. Slept well last night. No complaints today.
Objective Data
-
Labs:
Laboratory Results
05/08/23
04:46
WBC 6.0
Hgb 11.6 L
Hct 36.2 L
Plt Count 117 L
Sodium 138
Potassium 4.3
Chloride 106
Carbon Dioxide 23
BUN 40 H
Creatinine 2.0 H
Glucose 117 H
Calcium 8.0 L
Vital Signs:
Vital Signs
Temp Pulse Resp BP Pulse Ox
98.1 F 62 17 95/61 95
05/08/23 03:18 05/08/23 06:00 05/08/23 06:00 05/08/23 06:00 05/08/23 06:00
I&O
05/07/23 05/08/23 05/09/23
06:59 06:59 06:59
Intake Total 1985 1740 / 1740
Output Total 1849 175 / 175
Balance 136 / 136 -10 / -10
Review of Systems
-
History Source: Patient
All other systems: Reviewed and negative
--- NOTE | 2023-05-08 08:24 | W.PN.ID1 ---
Date of Service
Date of Service: May 08, 2023
Today's Communication
Transition to oral amoxicillin.
Assessment / Plan
Leukocytosis
Enterococcal UTI (complicated)
PINEDA on CKD
Chronic phimosis s/p Del Real placement in OR.
Hx immunoglobulin deficiency
Paroxysmal A-fib
Non-Hodgkin lymphoma
DVT
CVA (traumatic intracranial hemorrhage)
Seizure disorder
Hx of basal cell CA
Chronic heart failure
Diverticulosis
Recommendations:
Overall clinical improvement noted. White count has normalized.
Transition to oral amoxicillin 500 mg TID
Monitor white count and temperature curve.
Await circumcision
����������������������������������������������������������
Chief Complaint
-: UTI
Subjective / Review of Systems
Review of Systems: No Fever and No Chills
Vital Signs / Physical Exam
Vital Signs
Vital Signs
Temp Pulse Resp BP Pulse Ox
98.1 F 67 25 91/77 96
05/08/23 03:18 05/08/23 08:16 05/08/23 08:16 05/08/23 08:16 05/08/23 08:17
Physical Exam
Constitutional: No Acute Distress, Comfortable and Non-toxic
Eyes: No Conjunctival Hemorrhage and Sclera Anicteric
Cardiovascular: S1/S2; Negative S3/S4
Pulmonary: Symmetric and Non Labored
Gastrointestinal: Soft, Non Tender and Non Distended
Genito-Urinary: Del Real, Clear Urine and Other (Decreased penile inflammation.)
Extremities: Negative Edema or Cyanosis
Neurological: Awake and Alert
Psychological: Calm
Objective Data
Lab Data
Lab Results
05/08/23 04:46
05/08/23 04:46
Estimated Creat Clear 38 ml/min 05/08/23 04:46
Total Bilirubin 0.5 mg/dl (0.2-1.3) 05/06/23 12:46
AST 31 U/L (17-59) 05/06/23 12:46
ALT 17 U/L (0-50) 05/06/23 12:46
Alkaline Phosphatase 64 U/L (38-126) 05/06/23 12:46
Most recent labs reviewed.
Micro Results:
05/05/23 12:06 Blood Culture - Preliminary
Blood/Venous No Growth in 48 hours- Final report to follow
05/05/23 12:06 Blood Culture - Preliminary
Blood/Venous No Growth in 48 hours- Final report to follow
05/05/23 12:06 Urine Culture - Final
Urine Enterococcus faecalis
Urine Culture Final 05/07/23-1017
CC: Greater than 100,000 CFU/ML Enterococcus faecalis
Organism 1 Enterococcus faecalis
1. Enterococcus faecalis
M.I.C. RX
--------- ---
Ampicillin <=2 S
Gentamicin Synergy Screen <=500 S
Levofloxacin <=1 S
Nitrofurantoin-Urine Only <=32 S
Tetracycline >8 R
Vancomycin 2 S
Imaging:
05/05/2023 CT abdomen/pelvis without contrast: Mild right renal collecting system and right ureteral dilatation without findings to suggest radiopaque calculus. Unopacified urinary bladder, limited, without gross focal intrinsic abnormalities. IVC
filter is in place. Sigmoid diverticulosis noted. Please see full dictation for additional detail.
[2023-05-08] MEDS: FLOMAX 0.400000000000000022 MG PO (08:29)
[2023-05-08] MEDS: HEPARIN 5000 UNITS SC ×2 (08:29→20:42)
[2023-05-08] MEDS: COLACE 100 MG PO (08:29)
[2023-05-08] MEDS: MIRALAX 17 GRAMS PO (08:30)
[2023-05-08] MEDS: LAMICTAL 200 MG PO ×2 (08:30→20:42)
[2023-05-08] MEDS: PROSCAR 5 MG PO (08:33)
[2023-05-08] MEDS: ZYLOPRIM 100 MG PO ×2 (08:33→20:42)
[2023-05-08] MEDS: ProAmatine 10 MG PO ×3 (08:33→17:28)
[2023-05-08] MEDS: DULCOLAX 10 MG RECTAL (08:34)
[2023-05-08] MEDS: AMOXIL 500 MG PO ×3 (12:47→23:51)
--- NOTE | 2023-05-08 12:55 | PTCARENOTE ---
Patient constipated at the start of shift. Dulcolax and Miralax administered as per doctors orders. Patient has had many bowel movements since on commode. Khanna draining clear yellow urine, khanna care provided, Penis has swollen and reddened glands
extending down shaft. Oral antibiotics continues. Patient is for urology procedure on Wednesday. Family at bedside and all were educated about plan of care.
[2023-05-08] MEDS: COLACE PO (20:35)
[2023-05-09] VITALS (12 sets, daily range): BP systolic 101–128; BP diastolic 56–87; PULSE 65; O2SAT 94; BMI 34.9
--- NOTE | 2023-05-09 04:33 | PTCARENOTE ---
No acute changes overnight. Pt denies any pain and does not offer any complaints. Del Real catheter draining clear yellow urine at bedside. Stat lock replaced. Assisted to BSC x1 for small loose BM. Pt would benefit from physical therapy as he is very
weak and slow on his feet. Sp02 88-89% on RA; Placed on 1L NC and Sp02 increased to 93-95%. Tele showing paced rhythms. BP WNL. Call garcia within reach. Bed alarm set for safety.
[2023-05-09 05:26] LABS: % Basophils 0.7 % (0-2); % Eosinophils 5.6 % (0-6); % Immature Granulocytes 0.7 % (0-0.5); % Lymphocytes 21.5 % (20.5-51.1); % Monocytes 14.1 % (1.7-9.3); % Neutrophils 57.4 % (42.2-75.2); Absolute Eosinophils 0.3 10^3/uL (0-0.7); Absolute Lymphocytes 1.2 10^3/uL (1.2-3.4); Absolute Monocytes 0.8 10^3/uL (0.1-0.6); Absolute Neutrophils 3.3 10^3/uL (1.4-6.5); Hematocrit 38.2 % (39.0-52.0); Hemoglobin 12.1 g/dL (13.0-18.0); Mean Corp Hgb Conc. 31.7 g/dL (33.0-37.0); Mean Corpuscular Hgb 30.4 pg (27.0-31.0); Mean Platelet Volume 11.2 fL (7.4-10.4); Nucleated Red Blood Cells % 0 % (-); Platelet Count 132 10^3/uL (130-400); Red Blood Cell Count 3.98 10^6/uL (4.70-6.10); Red Cell Dist. Width 14.7 % (11.5-14.5); White Blood Cell Count 5.7 10^3/uL (4.8-10.8)
[2023-05-09 05:49] LABS: Blood Urea Nitrogen 32 mg/dl (9-20); Calcium 8.7 mg/dl (8.4-10.2); Carbon Dioxide 20 mmol/L (22-30); Chloride 111 mmol/L (98-107); Estimated Creatinine Clearance 42 ml/min; Glucose 101 mg/dl (70-99); Potassium 4.5 mmol/L (3.5-5.1); Sodium 137 mmol/L (135-145); eGFR 38.53
--- NOTE | 2023-05-09 07:43 | W.PN.URO.CBU ---
Today's Communication / Plan
-
treating UTI
to OR wednesday with dr watson
Assessment / Plan
-
urinary retention
phimosis
UTI
s/p foreskin dilation and cysto/khanna placement
urine clear and khanna in place
on pcn for enterococcal UTI
blood thinners on hold in anticipation of OR circ on wednesday
Diagnosis
-
Date of Service: May 09, 2023
-
Patient Diagnosis:
phimosis with urinary retention
enterococcal UTI
Subjective
-
pt awake- without complaint
khanna in place- urine clear
on amox for UTI
Objective
-
Vital Signs
Temp Pulse Resp BP Pulse Ox
98.4 F 65 15 112/67 97
05/09/23 03:09 05/09/23 06:00 05/09/23 06:00 05/09/23 06:00 05/09/23 06:00
Intake and Output
05/08/23 05/09/23 05/10/23
06:59 06:59 06:59
Intake Total 1740 / 1740 240 / 240
Output Total 1750 / 1750 1450 / 1450
Balance -10 / -10 -1210 / -1210
Intake:
Oral fluids 1440 / 1440 240 / 240
IV piggybacks 300 / 300
Output:
Urine, Khanna 750 / 750 1450 / 1450
Urine, Voided 1000 / 1000
Laboratory Results
05/09/23 04:48
05/09/23 04:48
Physical Exam
-
General - no acute distress
--- NOTE | 2023-05-09 08:16 | W.PN.HOSP.TC ---
Today's Communication/Plan
-
Transfer out of IMU
Assessment / Plan
Assessment / Plan
Gen-AAOx3, NAD, obese
HEENT-NC, AT, anicteric, clear oral mm
Neck-supple
CV-reg, no M, +S1/S2
Lungs-clear B/L
Abd-soft, NT, ND
Ext-no edema
Musculoskeletal-no cyanosis, clubbing
Skin-warm and dry
Neuro-grossly non-focal
Psych-calm, cooperative
Septic shock -present on admission. Due to UTI, urinary retention, severe phimosis. Blood cultures negative. Urine culture shows Enterococcus faecalis. Appreciate ID input. Now on amoxicillin. White blood cell count improved, afebrile today.
Blood pressure much improved on midodrine 10 mg 3 times daily.
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 CT scan shows mild right renal collecting system and right ureteral dilation without obvious radiopaque calculus. Creatinine coming down, 2.0 today.
Baseline appears to be around 1.9
Acute thrombocytopenia -probably due to sepsis. Platelet count improving.
Paroxysmal atrial fibrillation -hold Pradaxa given gross hematuria. Also, plan for complex circumcision on May 11 as per urology.
Severe phimosis -plan for circumcision on May 11. Hold Pradaxa.
Constipation -increase bowel regimen.
History of non-Hodgkin's lymphoma
Chronic hypogammaglobulinemia -gets as needed IVIG, Dr. Lozano orders.
Chronic heart failure reduced EF -currently compensated.� Hold furosemide in the setting of PINEDA.� LVEF 25 to 30% on echocardiogram from February 2023, stage I diastolic dysfunction, no significant valvular disease.
Gout -stable.
History of complete heart block -has permanent pacemaker.
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
Full code
PT/OT -SNF recommended on discharge.
Transfer out of IMU.
Anticipated Discharge: > 48 hours
Subjective/Interval History
-
Date of Service: May 09, 2023
Patient seen and examined. Slept well. No complaints.
Objective Data
-
Labs:
Laboratory Results
05/09/23
04:48
WBC 5.7
Hgb 12.1 L
Hct 38.2 L
Plt Count 132
Sodium 137
Potassium 4.5
Chloride 111 H
Carbon Dioxide 20 L
BUN 32 H
Creatinine 1.8 H
Glucose 101 H
Calcium 8.7
Vital Signs:
Vital Signs
Temp Pulse Resp BP Pulse Ox
98.4 F 65 15 112/67 97
05/09/23 07:55 05/09/23 06:00 05/09/23 06:00 05/09/23 06:00 05/09/23 06:00
I&O
05/08/23 05/09/23 05/10/23
06:59 06:59 06:59
Intake Total 1740 / 1740 240 / 240
Output Total 1750 / 1750 1450 / 1450
Balance -10 / -10 -1210 / -1210
Review of Systems
-
History Source: Patient
All other systems: Reviewed and negative
[2023-05-09] MEDS: ProAmatine 10 MG PO ×3 (08:57→17:03)
[2023-05-09] MEDS: LAMICTAL 200 MG PO ×2 (08:58→20:22)
[2023-05-09] MEDS: FLOMAX 0.400000000000000022 MG PO (08:58)
[2023-05-09] MEDS: COLACE 100 MG PO ×2 (08:59→20:21)
[2023-05-09] MEDS: ZYLOPRIM 100 MG PO ×2 (08:59→20:22)
[2023-05-09] MEDS: AMOXIL 500 MG PO ×2 (08:59→17:02)
[2023-05-09] MEDS: HEPARIN 5000 UNITS SC ×2 (09:00→20:22)
[2023-05-09] MEDS: MIRALAX 17 GRAMS PO (09:00)
[2023-05-09] MEDS: PROSCAR 5 MG PO (09:10)
--- NOTE | 2023-05-09 12:53 | PTCARENOTE ---
Pt AAOx3 no pain no distress. Del Real remains in place and draining yellow urine.
--- NOTE | 2023-05-09 21:37 | PTCARENOTE ---
Report called to DALJIT Scott on . Patient and updated on transfer. All belongings packed up. Pt transferred to room 413 via wheelchair on portable tele monitor with belongings.
[2023-05-10] VITALS (7 sets, daily range): BP systolic 106–132; BP diastolic 59–69; PULSE 66; O2SAT 95; BMI 34.4
[2023-05-10] MEDS: AMOXIL 500 MG PO ×4 (00:32→23:26)
[2023-05-10 05:57] LABS: Blood Urea Nitrogen 32 mg/dl (9-20); Calcium 8.8 mg/dl (8.4-10.2); Carbon Dioxide 24 mmol/L (22-30); Chloride 104 mmol/L (98-107); Estimated Creatinine Clearance 40 ml/min; Glucose 97 mg/dl (70-99); Sodium 138 mmol/L (135-145); eGFR 36.11
--- NOTE | 2023-05-10 08:35 | W.PN.HOSP.TC ---
Addendum entered and electronically signed by Derick Tang MD 05/11/23 15:12:
no ivig and no chemo after surgery-needs to recover from surgery and then can be evaluated several weeks down the road with outpatient oncology if and when needs chemo but none for the conceivable future at this point in time.
Original Note:
Today's Communication/Plan
-
Continue antibiotics, cardiology evaluation, plan for surgery tomorrow.
Assessment / Plan
Assessment / Plan
Gen-AAOx3, NAD, obese
HEENT-NC, AT, anicteric, clear oral mm
Neck-supple
CV-reg, no M, +S1/S2
Lungs-clear B/L
Abd-soft, NT, ND
Ext-no edema
Musculoskeletal-no cyanosis, clubbing
Skin-warm and dry
Neuro-grossly non-focal
Psych-calm, cooperative
A/P:
Septic shock -present on admission. Due to UTI, urinary retention, severe phimosis. Blood cultures negative. Urine culture shows Enterococcus faecalis. Appreciate ID input. Now on amoxicillin. White blood cell count improved, afebrile today.
Blood pressure much improved on midodrine 10 mg 3 times daily. Discussed with family at bedside today on 05/10. They had many questions today and answered them to their satisfaction. Discussed with urology as well today on 05/10.
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 CT scan shows mild right renal collecting system and right ureteral dilation without obvious radiopaque calculus. Creatinine coming down, 1.9 today.
Baseline appears to be around 1.9
Acute thrombocytopenia -probably due to sepsis. Platelet count improving.
Paroxysmal atrial fibrillation -hold Pradaxa given gross hematuria. Also, plan for complex circumcision on May 11 as per urology.
Severe phimosis -plan for circumcision on May 11. Hold Pradaxa. Given cardiac risk factors, will obtain cardiology preop evaluation.
Constipation -increase bowel regimen.
History of non-Hodgkin's lymphoma
Chronic hypogammaglobulinemia -gets as needed IVIG, Dr. Lozano orders.
Chronic heart failure reduced EF -currently compensated.� Hold furosemide in the setting of PINEDA.� LVEF 25 to 30% on echocardiogram from February 2023, stage I diastolic dysfunction, no significant valvular disease. Given cardiac risk factors, will
obtain cardiology preop eval
Gout -stable.
History of complete heart block -has permanent pacemaker.
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
Full code
PT/OT -SNF recommended on discharge.
DVT prophylaxis-he is on heparin SQ--> heparin given this morning but hold any future heparin in preparation for upcoming surgery. Start SCDs for DVT prophylaxys.
Total time spent on today's encounter was 52 minutes which included time spent in counseling the patient/family regarding diagnosis and treatment plan as listed above, goals of care, and symptom management. Case was discussed with nursing staff,
specialists, and care coordinators/case management. All labs and imaging personally reviewed by me. Remainder the time spent in detailed review of previous records, lab data, imaging, and other medical provider documentation.
Anticipated Discharge: > 48 hours
Subjective/Interval History
-
Date of Service: May 10, 2023
Patient has any chest pain or shortness of breath. Del Real catheter in place with yellow urine. Afebrile
Objective Data
-
Labs:
Laboratory Results
05/10/23
04:17
Sodium 138
Potassium 4.0
Chloride 104
Carbon Dioxide 24
BUN 32 H
Creatinine 1.9 H
Glucose 97
Calcium 8.8
Vital Signs:
Vital Signs
Temp Pulse Resp BP Pulse Ox
98 F 67 20 119/59 95
05/10/23 07:21 05/10/23 07:21 05/10/23 07:21 05/10/23 07:21 01/29/24 07:21
I&O
05/09/23 05/10/23 05/11/23
06:59 06:59 06:59
Intake Total 240 / 240
Output Total 1450 / 1450 800 / 800 600 / 600
Balance -1210 / -1210 -800 / -800 -600 / -600
Review of Systems
-
All other systems: Reviewed and negative
[2023-05-10] MEDS: ProAmatine 10 MG PO ×3 (09:18→17:37)
[2023-05-10] MEDS: MIRALAX 17 GRAMS PO (09:18)
[2023-05-10] MEDS: FLOMAX 0.400000000000000022 MG PO (09:18)
[2023-05-10] MEDS: COLACE 100 MG PO ×2 (09:18→20:14)
[2023-05-10] MEDS: HEPARIN 5000 UNITS SC (09:19)
[2023-05-10] MEDS: PROSCAR 5 MG PO (09:19)
[2023-05-10] MEDS: ZYLOPRIM 100 MG PO ×2 (09:19→20:13)
[2023-05-10] MEDS: LAMICTAL 200 MG PO ×2 (09:19→20:14)
--- NOTE | 2023-05-10 12:19 | CON.CAR ---
Addendum entered and electronically signed by Sorin Hough MD 05/10/23 14:37:
77 yo male with cardiomyopathy EF 25-30%, meds limited by hypotension and patient preference, Biotronik dual chamber PPM, paroxysmal A fib on pradaxa. We are consulted for pre-op evaluation prior to urology surgery with anesthesia. Prior to
hospitalization, patient was active: he could do stairs without CP/ROJAS. Exam with RRR, no mumurs, no edema. Tele: AV paced 65. EKG: ordered.
No evidence of angina or acute HF. He is elevated risk, but medically optimized. He can proceed to OR.
Original Note:
Consultation
Consultation Request
Date/Time Consultation Requested: 05/10/23 11:30a
Date/Time Consultation Performed: 05/10/23 11:45a
Requesting Provider: Dr. Tang
Performing Provider: KALEY Russo for Dr. Hough
Reason for Consultation: pre-op risk assessment
Medical History
-
Chief Complaint: urinary retention
History of Present Illness:
Mr. Doherty is a 77 yo male with dilated cardiomyopathy of uncertain etiology EF 25-30%, Biotronik dual chamber pacemaker for bradycardia now with complete heart block and pacer dependence, Paroxysmal AFib on Pradaxa, remote DVT with retained
IVC filter, CKD3B (nephrology), and a history of lymphoma (Dr. Lozano) with a right chest port, who presents from home with urinary retention and hematuria. He has chronic phimosis, was seen by Urology 05/04/23 and scheduled a circumcision as an
outpatient. Though he came to the ER 05/05/23 with hematuria, UTI, which has been treated and urinary retention requiring cyctoscopy with Del Real placement in the OR on 05/05/23. Pradaxa has been held since 05/04/23, no further hematuria. Urology plans
for complex circumcision in the OR tomorrow. We are consulted for pre-op risk assessment. Currently he denies any cardiac complaints or symptoms. He follows with Dr. Novoa and has a history of non-adherence to prescribed therapies and testing.
GDMT is limited by to patient preference.
Past Medical History
Past Medical History: Other (as above)
Past Surgical History: Cardiac (PPM) and Other (IV filter)
Social History
Tobacco: Non-Smoker
Alcohol: None
Personal:
Living: With Family
Family History
Family History: Reviewed & Not Pertinent
Allergies / Home Medications
Allergy/AdvReac Type Severity Reaction Status Date / Time
acetaminophen [From Percocet] Allergy Unknown Verified 05/05/23 09:34
influenza virus vaccine, Allergy pt states Verified 05/05/23 09:34
specific got sick
[Influenza Virus over the
Vacc,Specific] years with
flu shots,
has not cao
Influenza Virus Vaccines Allergy Unknown Verified 05/05/23 17:56
oxycodone [From Percocet] Allergy Unknown Verified 05/05/23 09:34
Medication Instructions Recorded Confirmed Type
allopurinol 100 mg tablet 100 mg PO BID Gout 03/21/20 05/05/23 History
finasteride 5 mg tablet 5 mg PO DAILY #30 tabs 03/27/20 05/05/23 Rx
tamsulosin 0.4 mg capsule 0.4 mg PO DAILY #30 caps 03/27/20 05/05/23 Rx
acetaminophen 500 mg tablet 500 mg PO Q4HPRN PRN mild pain 05/05/23 05/05/23 History
(Tylenol Extra Strength)
dabigatran etexilate 150 mg capsule 150 mg PO BID Blood Clot 05/05/23 05/05/23 History
Prevention/Tx
empagliflozin 10 mg tablet 10 mg PO DAILY Heart Failure 05/05/23 05/05/23 History
(Jardiance)
furosemide 40 mg tablet (Lasix) 40 mg PO MOWEFR@0800 Fluid 05/05/23 05/05/23 History
Retention/Swelling
lamotrigine 200 mg tablet 200 mg PO BID Seizures 05/05/23 05/05/23 History
lidocaine-prilocaine 2.5 %-2.5 % 1 applic topical DIRECTED apply 05/05/23 05/05/23 History
topical cream to port site
Physical Exam
Vital Signs
Temp Pulse Resp BP Pulse Ox
98 F 67 20 119/59 96
05/10/23 07:21 05/10/23 09:18 05/10/23 07:21 05/10/23 09:18 05/10/23 09:15
Lab Results
05/09/23 04:48
05/10/23 04:17
Physical Exam
General: Well Developed, Well Nourished and No Apparent Distress
HEENT: Normocephalic, Anicteric and Moist Mucous Membranes
Respiratory: Clear and Non Labored Respirations
Cardiac: S1/S2, Regular Rhythm and Other (PPM site healed.)
Breast: Deferred by me
GI: Soft, Non Tender, Non Distended and Normal Bowel Sounds
Rectal: Deferred by Provider
Genito-urinary: Clear Urine (in Del Real)
Musculoskeletal: No Clubbing and No Cyanosis
Skin: Warm, Dry and Other (right chest port)
Neuro: AO x 3
Psych: Calm
Impression / Plan
-
Pre-op risk assessment - Urology plans for OR 05/11/23 for complex circumcision for severe phimosis.
- no cardiac contraindication to proceed.
- denies any cardiac symptoms.
- check EKG today.
CM - dilated.
- etiology unknown, he has not completed prior stress testing as recommended.
- EF 25-30% on echo 02/2023; has declined BiV ICD recommendations from Dr. Novoa.
- compensated, denies any symptoms.
- GDMT is limited by patient declining therapies.
Afib - paroxysmal.
- stable, denies palpitations.
- Asensed Vpaced on tele.
- Pradaxa as an outpatient, held since 05/04/23 in preparation for circumcision surgery/hematuria.
PINEDA - acute on chronic CKD3, follows with nephrology.
- Del Real catheter.
Phimosis - chronic.
- per Urology.
- sepsis UTI treated with ABX per ID/hospitalist.
PPM - Biotronik dual chamber device.
- normal function, follow in outpatient device clinic.
Data Reviewed
-
EKG: Discussed with Patient (ordered)
MRI: Report Reviewed by me (Echo 02/24/2023: LV dilated. LVEF 25-30%, valves fine)
Labs: Labs Reviewed by me
Old Records: Reviewed
--- NOTE | 2023-05-10 12:55 | CM ---
Patient seen with and family, discussed recommendation of SNF. Per , patient has been to [facility] in past, would possibly be agreeable to SNF there, CM will send referral to see if [facility] has any available beds. Patient
reports he was independent before coming to the hospital, has rails up the stairs to bedroom which is located on second floor, has a rollator, walker, commode. Patient and family would like to discuss home with home PT versus SNF. CM will continue
to follow for discharge planning needs.
Plan; home with VN vs SNF, ref send to [facility], pt will require auth ([employer]).
--- NOTE | 2023-05-10 14:10 | W.PN.ID1 ---
Date of Service
Date of Service: May 10, 2023
Today's Communication
Continue amoxicillin
Assessment / Plan
Leukocytosis
Enterococcal UTI (complicated)
PINEDA on CKD
Chronic phimosis s/p Del Real placement in OR.
Hx immunoglobulin deficiency
Paroxysmal A-fib
Non-Hodgkin lymphoma
DVT
CVA (traumatic intracranial hemorrhage)
Seizure disorder
Hx of basal cell CA
Chronic heart failure
Diverticulosis
Recommendations:
Overall clinical improvement noted. White count has normalized.
Continue amoxicillin 500 mg TID
Monitor white count and temperature curve.
Await circumcision; tentatively tomorrow
����������������������������������������������������������
Chief Complaint
-: UTI
Subjective / Review of Systems
Review of Systems: No Fever and No Chills
Vital Signs / Physical Exam
Vital Signs
Vital Signs
Temp Pulse Resp BP Pulse Ox
97.9 F 76 14 111/65 99
05/10/23 12:32 05/10/23 12:52 05/10/23 12:32 05/10/23 12:52 05/10/23 12:32
Physical Exam
Constitutional: No Acute Distress, Comfortable and Non-toxic
Pulmonary: Non Labored
Gastrointestinal: Non Distended
Genito-Urinary: Del Real and Clear Urine
Neurological: Awake and Alert
Psychological: Calm
Objective Data
Lab Data
Lab Results
05/09/23 04:48
05/10/23 04:17
Estimated Creat Clear 40 ml/min 05/10/23 04:17
Total Bilirubin 0.5 mg/dl (0.2-1.3) 05/06/23 12:46
AST 31 U/L (17-59) 05/06/23 12:46
ALT 17 U/L (0-50) 05/06/23 12:46
Alkaline Phosphatase 64 U/L (38-126) 05/06/23 12:46
Most recent labs reviewed.
Micro Results:
05/05/23 12:06 Blood Culture - Final
Blood/Venous No Growth - Final Report
05/05/23 12:06 Blood Culture - Final
Blood/Venous No Growth - Final Report
05/05/23 12:06 Urine Culture - Final
Urine Enterococcus faecalis
Urine Culture Final 05/07/23-1017
CC: Greater than 100,000 CFU/ML Enterococcus faecalis
Organism 1 Enterococcus faecalis
1. Enterococcus faecalis
M.I.C. RX
--------- ---
Ampicillin <=2 S
Gentamicin Synergy Screen <=500 S
Levofloxacin <=1 S
Nitrofurantoin-Urine Only <=32 S
Tetracycline >8 R
Vancomycin 2 S
Imaging:
05/05/2023 CT abdomen/pelvis without contrast: Mild right renal collecting system and right ureteral dilatation without findings to suggest radiopaque calculus. Unopacified urinary bladder, limited, without gross focal intrinsic abnormalities. IVC
filter is in place. Sigmoid diverticulosis noted. Please see full dictation for additional detail.
[2023-05-11] VITALS (15 sets, daily range): BP systolic 95–119; BP diastolic 52–89; BMI 34.6
[2023-05-11 06:47] LABS: % Basophils 0.9 % (0-2); % Eosinophils 4.3 % (0-6); % Immature Granulocytes 1.7 % (0-0.5); % Lymphocytes 18.9 % (20.5-51.1); % Monocytes 10.2 % (1.7-9.3); Absolute Basophils 0.1 10^3/uL (0-0.2); Absolute Eosinophils 0.3 10^3/uL (0-0.7); Absolute Immature Granulocytes 0.1 10^3/uL (0-0.05); Absolute Lymphocytes 1.2 10^3/uL (1.2-3.4); Absolute Monocytes 0.7 10^3/uL (0.1-0.6); Absolute Neutrophils 4.1 10^3/uL (1.4-6.5); Hemoglobin 12.1 g/dL (13.0-18.0); Mean Corp Hgb Conc. 32.7 g/dL (33.0-37.0); Mean Corpuscular Hgb 30.2 pg (27.0-31.0); Mean Corpuscular Volume 92.3 fL (80.0-94.0); Mean Platelet Volume 11.5 fL (7.4-10.4); Nucleated Red Blood Cells % 0 % (-); Platelet Count 153 10^3/uL (130-400); Red Blood Cell Count 4.01 10^6/uL (4.70-6.10); Red Cell Dist. Width 14.7 % (11.5-14.5); White Blood Cell Count 6.4 10^3/uL (4.8-10.8)
[2023-05-11 07:13] LABS: Blood Urea Nitrogen 29 mg/dl (9-20); Calcium 8.6 mg/dl (8.4-10.2); Carbon Dioxide 25 mmol/L (22-30); Chloride 105 mmol/L (98-107); Estimated Creatinine Clearance 47 ml/min; Glucose 100 mg/dl (70-99); Potassium 4.2 mmol/L (3.5-5.1); Sodium 137 mmol/L (135-145); eGFR 44.38
--- NOTE | 2023-05-11 08:55 | W.PN.HOSP.TC ---
Today's Communication/Plan
-
surgery today.
Assessment / Plan
Assessment / Plan
Gen-AAOx3, NAD, obese
HEENT-NC, AT, anicteric, clear oral mm
Neck-supple
CV-reg, no M, +S1/S2
Lungs-clear B/L
Abd-soft, NT, ND
Ext-no edema
Musculoskeletal-no cyanosis, clubbing
Skin-warm and dry
Neuro-grossly non-focal
Psych-calm, cooperative
A/P:
Septic shock -present on admission. Due to UTI, urinary retention, severe phimosis. Blood cultures negative. Urine culture shows Enterococcus faecalis. Appreciate ID input. Now on amoxicillin. White blood cell count improved, afebrile today.
Blood pressure much improved on midodrine 10 mg 3 times daily. Discussed with family at bedside on 05/10. Discussed with urology as well on 05/10. Updated family again today on 05/11. Postop he had some witness seizures-->neurology consulted
(discussed with neurology today who will see patient tomorrow and will give recommendations).
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 CT scan shows mild right renal collecting system and right ureteral dilation without obvious radiopaque calculus. Creatinine coming down, 1.6 today.
Baseline appears to be around 1.9
Acute thrombocytopenia -probably due to sepsis. Platelet count improving.
Paroxysmal atrial fibrillation -hold Pradaxa given gross hematuria. Also, plan for complex circumcision on May 11 as per urology.
Severe phimosis -plan for circumcision on May 11. Hold Pradaxa. Given cardiac risk factors, will obtain cardiology preop evaluation-->appreciated cardiology input.
Constipation -increase bowel regimen.
History of non-Hodgkin's lymphoma
Chronic hypogammaglobulinemia -gets as needed IVIG, Dr. Lozano orders.
Chronic heart failure reduced EF -currently compensated.� Hold furosemide in the setting of PINEDA.� LVEF 25 to 30% on echocardiogram from February 2023, stage I diastolic dysfunction, no significant valvular disease. Given cardiac risk factors,
obtained cardiology preop eval--> appreciated cardiology input
Gout -stable.
History of complete heart block -has permanent pacemaker.
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
Full code
PT/OT -SNF recommended on discharge.
DVT prophylaxis--> hold heparin and cont SCDs
Addendum:
no ivig and no chemo after surgery-needs to recover from surgery and then can be evaluated several weeks down the road with outpatient oncology if and when needs chemo but none for the conceivable future at this point in time.
Anticipated Discharge: 24 - 48 hours
Subjective/Interval History
-
Date of Service: May 11, 2023
Patient denies any cp or sob prior to surgery. Afebrile
Objective Data
-
Labs:
Laboratory Results
05/11/23
05:44
WBC 6.4
Hgb 12.1 L
Hct 37.0 L
Plt Count 153
Sodium 137
Potassium 4.2
Chloride 105
Carbon Dioxide 25
BUN 29 H
Creatinine 1.6 H
Glucose 100 H
Calcium 8.6
Vital Signs:
Vital Signs
Temp Pulse Resp BP Pulse Ox
97.7 F 67 18 119/66 97
05/11/23 07:00 05/11/23 07:00 05/11/23 07:00 05/11/23 07:00 05/11/23 07:00
I&O
05/10/23 05/11/23 05/12/23
06:59 06:59 06:59
Intake Total 1800 / 1800
Output Total 800 / 800 1350 / 1350 700 / 700
Balance -800 / -800 450 / 450 -700 / -700
--- NOTE | 2023-05-11 10:05 | W.PN.CD ---
Today's Communication / Plan
-
- Resume Pradaxa only when the risk of surgical site bleeding is low enough
- Usual pacer precautions
Impression / Plan
-
Pre-op risk assessment
- Urology plans for OR 05/11/23 for complex circumcision for severe phimosis.
- OK for surgery
- Resume Pradaxa only when the risk of surgical site bleeding is low enough
- Usual pacer precautions
Chronic compensated dilated cardiomyopathy
- etiology unknown, he has not completed prior stress testing as recommended.
- EF 25-30% on echo 02/2023; has declined BiV ICD recommendations from Dr. Novoa.
- GDMT is limited by patient declining therapies.
Afib - paroxysmal.
- stable, denies palpitations.
- Asensed Vpaced on tele.
- Pradaxa as an outpatient, held since 05/04/23 in preparation for circumcision surgery/hematuria.
PINEDA - acute on chronic CKD3, follows with nephrology.
- Del Real catheter.
Phimosis - chronic.
- per Urology.
- sepsis UTI treated with ABX per ID/hospitalist.
Complete heart block with normally functioning PPM - Biotronik dual chamber device.
Subjective:
No CP or dyspnea. No syncope.
Physical Exam
Vital Signs/Labs
Vital Signs
Temp Pulse Resp BP Pulse Ox
97.7 F 67 18 119/66 97
05/11/23 07:00 05/11/23 07:00 05/11/23 07:00 05/11/23 07:00 05/11/23 07:00
05/10/23 05/11/23 05/12/23
06:59 06:59 06:59
Actual Weight 105.46 kg 106.169 kg
05/11/23 05:44
05/11/23 05:44
Magnesium 2.0 mg/dl (1.6-2.3) 05/11/23 05:44
Physical Exam
Constitutional: No acute distress
EENT: Anicteric
Cardiovascular: Rhythm & rate is regular and Pedal edema is absent
Respiratory: Respiratory effort normal and Lungs clear to auscul.
GI: Soft and Distention absent
Neuro/Psych: Alert
Data Reviewed
-
Date of Service: May 11, 2023
[2023-05-11] MEDS: COLACE 100 MG PO ×2 (10:18→20:06)
[2023-05-11] MEDS: AMOXIL 500 MG PO ×3 (10:18→23:10)
[2023-05-11] MEDS: FLOMAX 0.400000000000000022 MG PO (10:18)
[2023-05-11] MEDS: MIRALAX PO (10:19)
[2023-05-11] MEDS: LAMICTAL 200 MG PO ×2 (10:19→20:05)
[2023-05-11] MEDS: PROSCAR 5 MG PO (10:21)
[2023-05-11] MEDS: ZYLOPRIM 100 MG PO ×2 (10:21→20:06)
[2023-05-11] MEDS: ProAmatine 10 MG PO ×2 (10:21→17:24)
[2023-05-11 11:59] LABS: Glucose - Point of Care 87 mg/dl (70-99)
[2023-05-11] MEDS: ProAmatine PO (13:00)
[2023-05-11 13:53] LABS: Glucose - Point of Care 110 mg/dl (70-99)
--- NOTE | 2023-05-11 14:29 | W.IMMPOSTOP ---
Surgical Immed Post Op Note
-
Primary Surgeon: Joanie
Assisting Surgeon: None
Pre-op Diagnosis: Chronic phimosis/balanitis, penile adhesions
Post-op Diagnosis: Same
Procedure Performed: Plastic surgical repair/reconstruction of penile skin, circumcision
Anesthesia Type: GET
Specimen / Cultures: Chronically inflamed/sclerotic foreskin
Estimated Blood Loss: 5 ml
Complications: None
Operative Findings: Dense penile adhesions with loss of penoscrotal junction and ulcerated glans penis
--- NOTE | 2023-05-11 15:25 | PTCARENOTE ---
received post op from PACU, patient awake and oriented , reporting no complaints. vitals noted. penis with gauze dressing dry and intact. khanna patent and draining clear yellow urine. denies any pain, at bedside. call garcia in reach aware of
nurse availability. plan of care on going.
--- NOTE | 2023-05-11 15:45 | CM ---
Chart reviewed and physical therapy are recommending skilled placement, physical therapy on hold today for procedure, patient was referred to [facility] but per admissions at facility they saw documentation on IVIG and have
declined patient. bi manager spoke with admissions at [facility] and they have declined patient, housing case manager spoke with patient's spoke who is upset and is stating that patient will not be received IVIG till after rehab. Case
convention manager reached out to patient's physician to document this in the notes and housing case manager plans on resubmitting clinical to [facility].
Plan; Skilled placement, patient was denied at [facility] however housing case manager will resubmit updated notes on patient.
--- NOTE | 2023-05-11 16:47 | W.PN.ID1 ---
Date of Service
Date of Service: May 11, 2023
Today's Communication
Continue abx
Assessment / Plan
Leukocytosis
Enterococcal UTI (complicated)
PINEDA on CKD
Chronic phimosis s/p Del Real placement in OR.
Hx immunoglobulin deficiency
Paroxysmal A-fib
Non-Hodgkin lymphoma
DVT
CVA (traumatic intracranial hemorrhage)
Seizure disorder
Hx of basal cell CA
Chronic heart failure
Diverticulosis
Recommendations:
Continue amoxicillin 500 mg TID
Monitor white count and temperature curve.
����������������������������������������������������������
Chief Complaint
-: UTI
Subjective / Review of Systems
Review of Systems: No Fever and No Chills
Vital Signs / Physical Exam
Vital Signs
Vital Signs
Temp Pulse Resp BP Pulse Ox
98 F 78 18 109/89 98
05/11/23 16:15 05/11/23 16:15 05/11/23 16:15 05/11/23 16:15 05/11/23 16:15
Physical Exam
Constitutional: No Acute Distress, Comfortable and Non-toxic
Pulmonary: Non Labored
Genito-Urinary: Del Real and Clear Urine
Neurological: Awake and Alert
Psychological: Calm
Objective Data
Lab Data
Lab Results
05/11/23 05:44
05/11/23 05:44
Estimated Creat Clear 47 ml/min 05/11/23 05:44
Total Bilirubin 0.5 mg/dl (0.2-1.3) 05/06/23 12:46
AST 31 U/L (17-59) 05/06/23 12:46
ALT 17 U/L (0-50) 05/06/23 12:46
Alkaline Phosphatase 64 U/L (38-126) 05/06/23 12:46
Most recent labs reviewed.
Micro Results:
05/05/23 12:06 Blood Culture - Final
Blood/Venous No Growth - Final Report
05/05/23 12:06 Blood Culture - Final
Blood/Venous No Growth - Final Report
05/05/23 12:06 Urine Culture - Final
Urine Enterococcus faecalis
Urine Culture Final 05/07/23-1017
CC: Greater than 100,000 CFU/ML Enterococcus faecalis
Organism 1 Enterococcus faecalis
1. Enterococcus faecalis
M.I.C. RX
--------- ---
Ampicillin <=2 S
Gentamicin Synergy Screen <=500 S
Levofloxacin <=1 S
Nitrofurantoin-Urine Only <=32 S
Tetracycline >8 R
Vancomycin 2 S
Imaging:
05/05/2023 CT abdomen/pelvis without contrast: Mild right renal collecting system and right ureteral dilatation without findings to suggest radiopaque calculus. Unopacified urinary bladder, limited, without gross focal intrinsic abnormalities. IVC
filter is in place. Sigmoid diverticulosis noted. Please see full dictation for additional detail.
[2023-05-11 18:38] LABS: Glucose - Point of Care 197 mg/dl (70-99)
--- NOTE | 2023-05-11 18:45 | PTCARENOTE ---
silverio monreal initiated to monitor for seizure activity.
[2023-05-11 18:58] LABS: Hematocrit 39.9 % (39.0-52.0); Hemoglobin 13.1 g/dL (13.0-18.0); Mean Corp Hgb Conc. 32.8 g/dL (33.0-37.0); Mean Corpuscular Hgb 30.3 pg (27.0-31.0); Mean Corpuscular Volume 92.1 fL (80.0-94.0); Mean Platelet Volume 10.8 fL (7.4-10.4); Platelet Count 153 10^3/uL (130-400); Red Blood Cell Count 4.33 10^6/uL (4.70-6.10); Red Cell Dist. Width 14.7 % (11.5-14.5); White Blood Cell Count 8.1 10^3/uL (4.8-10.8)
--- NOTE | 2023-05-11 18:59 | PTCARENOTE ---
RN was approached by patient's in hallway who stated to RN, 'I think my is having a seizure'. RN immediately came to patients bedside and noted patient having right sided facial twitching and patient being unable to make out words.
Rapid response was called, vital signs, POC glucose and bloodwork were recorded. Seizure activity lasted approximately 10-15 seconds. Patient returned to orientated and communicable baseline upon arrival of rapid response team.
[2023-05-12] VITALS (9 sets, daily range): BP systolic 104–129; BP diastolic 57–71; PULSE 61–86; O2SAT 96; BMI 34.4
[2023-05-12 05:59] LABS: % Basophils 0.1 % (0-2); % Lymphocytes 10.7 % (20.5-51.1); % Monocytes 6.3 % (1.7-9.3); % Neutrophils 81.9 % (42.2-75.2); Absolute Immature Granulocytes 0.1 10^3/uL (0-0.05); Absolute Monocytes 0.6 10^3/uL (0.1-0.6); Hematocrit 38.1 % (39.0-52.0); Hemoglobin 12.5 g/dL (13.0-18.0); Mean Corp Hgb Conc. 32.8 g/dL (33.0-37.0); Mean Corpuscular Hgb 30.6 pg (27.0-31.0); Mean Corpuscular Volume 93.2 fL (80.0-94.0); Mean Platelet Volume 11.2 fL (7.4-10.4); Nucleated Red Blood Cells % 0 % (-); Platelet Count 161 10^3/uL (130-400); Red Blood Cell Count 4.09 10^6/uL (4.70-6.10); Red Cell Dist. Width 14.6 % (11.5-14.5); White Blood Cell Count 9.7 10^3/uL (4.8-10.8)
[2023-05-12 06:20] LABS: ALT (SGPT) 49 U/L (0-50); AST (SGOT) 39 U/L (17-59); Albumin 3.3 g/dl (3.5-5.0); Alkaline Phosphatase 95 U/L (38-126); Blood Urea Nitrogen 28 mg/dl (9-20); Calcium 8.7 mg/dl (8.4-10.2); Carbon Dioxide 24 mmol/L (22-30); Chloride 103 mmol/L (98-107); Estimated Creatinine Clearance 47 ml/min; Glucose 127 mg/dl (70-99); Potassium 4.9 mmol/L (3.5-5.1); Sodium 136 mmol/L (135-145); Total Bilirubin 0.6 mg/dl (0.2-1.3); Total Protein 5.4 g/dl (6.3-8.2); eGFR 44.38
--- NOTE | 2023-05-12 07:41 | W.PN.HOSP.TC ---
Addendum entered and electronically signed by Derick Tang MD 05/12/23 12:06:
Can resume anticoagulation by tomorrow per urology.
Original Note:
Today's Communication/Plan
-
Continue current management. Discharge planning in progress.
Assessment / Plan
Assessment / Plan
Gen-AAOx3, NAD, obese
HEENT-NC, AT, anicteric, clear oral mm
Neck-supple
CV-reg, no M, +S1/S2
Lungs-clear B/L
Abd-soft, NT, ND
Ext-no edema
Musculoskeletal-no cyanosis, clubbing
Skin-warm and dry
Neuro-grossly non-focal
Psych-calm, cooperative
A/P:
Septic shock -present on admission. Due to UTI, urinary retention, severe phimosis. Blood cultures negative. Urine culture shows Enterococcus faecalis. Appreciate ID input. Now on amoxicillin. White blood cell count improved, afebrile today.
Blood pressure much improved on midodrine 10 mg 3 times daily. Discussed with family at bedside on 05/10. Discussed with urology as well on 05/10. Updated family again today on 05/11. Postop he had some witness seizures-->neurology consulted
(discussed with neurology yesterday who will see patient today and will give recommendations). Del Real catheter removal per urology. Patient underwent plastic surgical reconstruction of penile skin and circumcision on 05/11/2023. Postop unremarkable
so far except for the neuro event for which he will be evaluated. From standpoint if he is voiding he will be cleared for discharge. Likely will need rehab so PT OT reeval for discharge disposition and awaiting neurology eval. Antibiotics
duration per ID.
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 CT scan shows mild right renal collecting system and right ureteral dilation without obvious radiopaque calculus. Creatinine coming down, 1.6 today.
Baseline appears to be around 1.9
Acute thrombocytopenia -probably due to sepsis. Platelet count improving.
Paroxysmal atrial fibrillation -hold Pradaxa given gross hematuria. Also, plan for complex circumcision on May 11 as per urology.
Severe phimosis -plan for circumcision on May 11. Hold Pradaxa. Given cardiac risk factors, will obtain cardiology preop evaluation-->appreciated cardiology input.
Constipation -increase bowel regimen.
History of non-Hodgkin's lymphoma
Chronic hypogammaglobulinemia -gets as needed IVIG, Dr. Lozano orders.
Chronic heart failure reduced EF -currently compensated.� Hold furosemide in the setting of PINEDA.� LVEF 25 to 30% on echocardiogram from February 2023, stage I diastolic dysfunction, no significant valvular disease. Given cardiac risk factors,
obtained cardiology preop eval--> appreciated cardiology input
Gout -stable.
History of complete heart block -has permanent pacemaker.
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
Full code
PT/OT -SNF recommended on discharge.
DVT prophylaxis--> hold heparin and cont SCDs
Addendum:
No ivig and no chemo after surgery-needs to recover from surgery and then can be evaluated several weeks down the road with outpatient oncology if and when needs chemo but none for the conceivable future at this point in time.
Anticipated Discharge: Within 24 hours
Subjective/Interval History
-
Date of Service: May 12, 2023
Patient alert and oriented today, no further change in mental status or seizure-like activity today. No chest pain or shortness of breath.
Objective Data
-
Labs:
Laboratory Results
05/12/23
05:34
WBC 9.7
Hgb 12.5 L
Hct 38.1 L
Plt Count 161
Sodium 136
Potassium 4.9
Chloride 103
Carbon Dioxide 24
BUN 28 H
Creatinine 1.6 H
Glucose 127 H
Calcium 8.7
Total Bilirubin 0.6
AST 39
ALT 49
Alkaline Phosphatase 95
Vital Signs:
Vital Signs
Temp Pulse Resp BP Pulse Ox
97.8 F 77 18 104/58 95
05/12/23 03:25 05/12/23 03:25 05/12/23 03:25 05/12/23 03:25 05/12/23 03:25
I&O
05/11/23 05/12/23 05/13/23
06:59 06:59 06:59
Intake Total 1800 / 1800 1060 / 1060
Output Total 1350 / 1350 2250 / 2250
Balance 450 / 450 -1190 / -1190
Review of Systems
-
All other systems: Reviewed and negative
[2023-05-12] MEDS: AMOXIL 500 MG PO ×3 (08:43→23:53)
[2023-05-12] MEDS: ProAmatine 10 MG PO ×3 (08:43→17:46)
[2023-05-12] MEDS: COLACE 100 MG PO ×2 (08:43→19:52)
[2023-05-12] MEDS: FLOMAX 0.400000000000000022 MG PO (08:43)
[2023-05-12] MEDS: LAMICTAL 200 MG PO ×2 (08:43→19:52)
[2023-05-12] MEDS: PROSCAR 5 MG PO (08:44)
[2023-05-12] MEDS: ZYLOPRIM 100 MG PO ×2 (08:44→19:52)
[2023-05-12] MEDS: MIRALAX 17 GRAMS PO (08:44)
--- NOTE | 2023-05-12 08:58 | W.PN.URO.CBU ---
Today's Communication / Plan
-
Del Real out
Ice packs to surgical site
Bacitracin twice daily
Cleared for discharge from standpoint once voiding
Assessment / Plan
-
urinary retention
phimosis s/p circumcision 05/11/23
UTI
Diagnosis
-
Date of Service: May 12, 2023
-
Patient Diagnosis:
phimosis with urinary retention: s/p plastic surgical reconstruction/circumcision 05/11/23
enterococcal UTI
Subjective
-
comfortable
no significant incisional pain
Objective
-
Vital Signs
Temp Pulse Resp BP Pulse Ox
98 F 66 18 108/61 96
05/12/23 08:38 05/12/23 08:38 05/12/23 08:38 05/12/23 08:38 05/12/23 08:38
Intake and Output
05/11/23 05/12/23 05/13/23
06:59 06:59 06:59
Intake Total 1800 / 1800 1060 / 1060
Output Total 1350 / 1350 2250 / 2250
Balance 450 / 450 -1190 / -1190
Intake:
Oral fluids 1800 / 1800 960 / 960
IV fluids (Total) 100 / 100
normosol 100 / 100
Output:
Urine, Del Real 750 / 750 1475 / 1475
Urine, Voided 600 / 600 775 / 775
Laboratory Results
05/12/23 05:34
05/12/23 05:34
Review of Systems
-
Constitutional: Fatigue
Respiratory: No Symptoms
Abdomen/GI: No Symptoms
Neurological: No Symptoms
Physical Exam
-
General - well nourished, no acute distress
Abdomen -no CVAT, no incisional pain or distention
Genitalia - glans penis exposed, incision lines clean
Skin - warm & dry with no rash
Neuro - AOx3, no motor deficits
Counseling
-
Cleared to resume blood thinners 05/13/23
--- NOTE | 2023-05-12 09:17 | PTOTSP ---
Reviewed chart and noted pt went to OR yesterday for procedure under general anesthesia. Will need new orders for PT and OT when stable to resume activity.
--- NOTE | 2023-05-12 09:29 | CON.NEURO4 ---
Addendum entered and electronically signed by Kingston Pace MD 05/12/23 17:15:
Studies reviewed.
I have personally examined the patient. I reviewed and agree with the BUSINESS PERFORMANCE ADVISOR's Note.
My addenda:
Awake, alert, interactive. No acute distress.
Speech intact.
Follows 2-step requests w/o difficulty. No tremor.
Extra-ocular movements grossly intact.
Facial movements full and symmetric. Hearing intact to normal conversational volume.
Normal UE movements bilaterally.
Neck: full ROM.
Chest: no dyspnea
Heart: no JVD
Ext: (-) Clubbing, (-) Cyanosis, (-) Edema
IMPRESSIONS/RECOMMENDATIONS:
Abrupt onset of recurrent change in mental status suggested to be focal onset seizure without change of consciousness, suggested to be 10 seconds in duration
Continue lamotrigine 200 mg twice a day
Follow lamotrigine levels
Patient should be followed as outpatient by his usual neurologist.
Original Note:
Consultation - Neurology 4
-
CONSULTING PHYSICIAN: Kingston Pace MD
REFERRING PHYSICIAN: Hospitalists/Dr. Tang
DICTATED BY: KALEY Dunn
DATE/TIME OF REQUEST: 05/11/23
DATE/TIME OF CONSULTATION: 05/12/23
Reason for Consultation: Seizure
History of Present Illness:
This is a 77-year-old right-handed male who has presented to the hospital on 05/05/23 with report of acute urinary retention and hematuria. Urine culture was +E. Coli. Patient has chronic phimosis and yesterday (05/11/23) he underwent plastic
surgical reconstruction of penile skin/circumcision. Postoperatively, he was noted to have seizure activity. The patient is a poor historian and some of this information is obtained from medical records. Per rapid response note, patient was noted to
have right facial twitching and expressive aphasia lasting 10-15 seconds before resolving spontaneously and returning to his baseline. There was no tongue biting or bowel incontinence noted, patient has a khanna catheter in place. In 2016 he fell off
of a ladder and hit his head on cement resulting in a subdural hematoma. He reports that he started having seizures about 10 months after that event. His typical seizure consists of difficulty speaking. He thinks his last seizure prior to yesterday
was over 6 months ago. He is taking lamotrigine 200mg BID and denies missing any doses, but this his medication might have been given late yesterday. He reports being followed by Neurology Dr. Mackey as an outpatient. Currently, he reports feeling
at his baseline, he denies any headache, dizziness, vision changes, speech/swallow difficulty, numbness, weakness, chest pain, palpitations, and shortness of breath.
Past Medical History: Paroxysmal Afib (Pradaxa), traumatic SDH after fall off of a ladder 2015, seizure disorder, immunoglobulin deficiency, Non-Hodgkins lymphoma, PE, remote RLE DVT, complete heart block, CHF, CKD 3b, gout, left eye trauma
(arrow), diverticulitis, basal cell carcinoma, hematuria, chronic phimosis, chronic balanitis
Surgical History: Pacemaker, IVC Filter, RCW port
Family History: Brother- Intracranial hemorrhage
Social History: Denies tobacco, alcohol, and illicit drug use.
Allergies: Influenza vaccine, Percocet
Home Medications: See below.
Review of Symptoms:
Patient denies any fever, headache, chest pain, shortness of breath, GI or symptoms.
�Per the HPI.�All systems are reviewed negative except above.
Physical Exam:
The patient is afebrile, abdomen is nondistended, breathing is unlabored, skin is warm and dry, no edema, khanna catheter in place.Chronic venous stasis.
Neurologic Examination:
The patient is awake, alert and oriented x 3. He is able to follow commands and answer questions appropriately. There is no aphasia or dysarthria. On cranial nerve assessment, pupils are 3 mm bilateral, round and reactive to light and
accommodation. Visual ulrich are full. Extraocular movements are intact. Facial sensations are intact and bilaterally symmetrical, there is no facial asymmetry. Hearing is intact bilaterally to normal conversation volume. Tongue palate and uvula are
midline. No tongue laceration. Sternocleidomastoid strengths are full bilaterally. Motor strengths are 5/5 bilateral upper and lower extremities on medical research [place] scale. There is no drift or involuntary movement noted. Deep tendon reflexes
are 2+ bilateral upper and lower extremities and Babinski is absent bilaterally. Coordination is intact by finger to nose bilaterally.
Lab Results: See below.
Neuro Imaging: None
Differentials for the patient's presentation include:
1. Partial seizure, well controlled, without status epilepticus, in the setting of UTI and urologic surgery.
2. Seizure disorder s/p head trauma/SDH in 2016
Patient has the following risk factors for their symptoms: Hx traumatic ICH, seizure disorder
Recommendations:
-Continue home lamotrigine 200mg BID.
-Do not see a role for neurological imaging at this time.
-If any further events are noted, will consider adding an additional antiseizure medication.
-Will follow-as needed. Contact us with any questions or concerns.
-Patient should follow-up with Neurology Dr. Mackey as an outpatient after hospital discharge.
Discussed patient care with: Dr. Pace, the patient
Vital Signs and Labs
-
Vital Signs and Labs:
Vital Signs
Temp Pulse Resp BP Pulse Ox
98 F 66 18 108/61 96
05/12/23 08:38 05/12/23 08:38 05/12/23 08:38 05/12/23 08:38 05/12/23 08:38
Lab Results
05/12/23 05:34
05/12/23 05:34
Sodium 136 mmol/L (135-145) 05/12/23 05:34
Potassium 4.9 mmol/L (3.5-5.1) 05/12/23 05:34
BUN 28 mg/dl (9-20) H 05/12/23 05:34
Glucose 127 mg/dl (70-99) H 05/12/23 05:34
Calcium 8.7 mg/dl (8.4-10.2) 05/12/23 05:34
Medications
-
Active Medications
Generic Name Dose Route Start Last Admin
Trade Name Freq PRN Reason Stop Dose Admin
Acetaminophen 500 mg 05/05/23 17:33 05/06/23 12:10
Acetaminophen 500 Mg Tablet PO 06/02/23 17:32 500 mg
Q4HPRN PRN Administration
mild pain
Allopurinol 100 mg 05/05/23 20:00 05/12/23 08:44
Allopurinol 100 Mg Tablet PO 06/02/23 19:59 100 mg
BID LESTER Administration
Amoxicillin 500 mg 05/08/23 09:00 05/12/23 08:43
Amoxicillin 500 Mg Capsule PO 500 mg
Q8 LESTER Administration
Docusate Sodium 100 mg 05/07/23 20:00 05/12/23 08:43
Docusate Sodium 100 Mg Capsule PO 06/04/23 19:59 100 mg
BID LESTER Administration
Finasteride 5 mg 05/06/23 08:00 05/12/23 08:44
Finasteride 5 Mg Tablet PO 06/03/23 07:59 5 mg
DAILY LESTER Administration
Heparin Sodium 5,000 units 05/05/23 20:00 05/10/23 09:19
Heparin 5,000 Units/Ml 1 Ml Vial SC 06/02/23 19:59 5,000 units
Q12 LESTER Administration
Heparin Sodium (Porcine) 500 unit 05/06/23 17:44 05/12/23 05:36
Heparin Flush Pf (100 Unit/Ml) 5 Ml Syringe IV 06/03/23 17:43 500 unit
PRN PRN Administration
PORT FLUSH
Hydromorphone HCl 0.25 mg 05/11/23 14:11
Hydromorphone 0.5 Mg/0.5 Ml Syringe IV 05/12/23 14:11
PACU-Q5MPRN PRN
severe pain
Parenteral Electrolytes 1,000 mls @ 100 mls/hr 05/11/23 14:15
Normosol-R IV 05/12/23 14:11
PER PROTOCOL LESTER
Lamotrigine 200 mg 05/05/23 20:00 05/12/23 08:43
Lamotrigine 100 Mg Tablet PO 06/02/23 19:59 200 mg
BID LESTER Administration
Meperidine HCl 12.5 mg 05/11/23 14:11
Meperidine 25 Mg/Ml Injection IV 05/12/23 14:11
PACU-Q5MPRN PRN
shivers
Midodrine 10 mg 05/07/23 08:25 05/12/23 08:43
Midodrine 5 Mg Tablet PO 06/04/23 08:24 10 mg
TID@0800,1300,1800 LESTER Administration
Morphine Sulfate 1 mg 05/11/23 14:11
Morphine 2 Mg/Ml Syringe IV 05/12/23 14:11
PACU-Q5MPRN PRN
moderate pain
Ondansetron HCl 4 mg 05/11/23 14:11
Ondansetron 4 Mg/2 Ml Vial IV 05/12/23 14:11
PACU-ONCEPRN PRN
nausea/vomiting
Polyethylene Glycol 17 grams 05/07/23 15:00 05/12/23 08:44
Polyethylene Glycol Powder 17 Grams Packet PO 06/04/23 14:59 17 grams
DAILY LESTER Administration
Prochlorperazine Edisylate 5 mg 05/11/23 14:11
Prochlorperazine 10 Mg/2 Ml Vial IV 05/12/23 14:11
PACU-ONCEPRN PRN
nausea/vomiting
Sodium Chloride 0 flush 05/05/23 16:00
Sodium Chloride 0.9% (Flush) Syringe IV 06/02/23 15:59
PER PROTOCOL LESTER
Sodium Chloride 0 flush 05/06/23 18:00
Sodium Chloride 0.9% (Flush) Syringe IV 06/03/23 17:59
PER PROTOCOL LESTER
Tamsulosin HCl 0.4 mg 05/06/23 08:00 05/12/23 08:43
Tamsulosin 0.4 Mg Capsule PO 06/03/23 07:59 0.4 mg
DAILY LESTER Administration
Home Medications
Medication Instructions Recorded
allopurinol 100 mg tablet 100 mg PO BID Gout 03/21/20
finasteride 5 mg tablet 5 mg PO DAILY #30 tabs 03/27/20
tamsulosin 0.4 mg capsule 0.4 mg PO DAILY #30 caps 03/27/20
acetaminophen 500 mg tablet 500 mg PO Q4HPRN PRN mild pain 05/05/23
(Tylenol Extra Strength)
dabigatran etexilate 150 mg capsule 150 mg PO BID Blood Clot 05/05/23
Prevention/Tx
empagliflozin 10 mg tablet 10 mg PO DAILY Heart Failure 05/05/23
(Jardiance)
furosemide 40 mg tablet (Lasix) 40 mg PO MOWEFR@0800 Fluid 05/05/23
Retention/Swelling
lamotrigine 200 mg tablet 200 mg PO BID Seizures 05/05/23
lidocaine-prilocaine 2.5 %-2.5 % 1 applic topical DIRECTED apply 05/05/23
topical cream to port site
[2023-05-12] MEDS: POLYSPORIN OINTMENT 1 APPLIC TOPICAL (10:02)
--- NOTE | 2023-05-12 11:22 | W.PN.CD ---
Today's Communication / Plan
-
We will sign off.
Please resume anticoagulation when ok with urology
Impression / Plan
-
Pre-op risk assessment
- Urology plans for OR 05/11/23 for complex circumcision for severe phimosis.
- No cardiac complications detected
- Resume Pradaxa only when the risk of surgical site bleeding is low enough
- Usual pacer precautions
Chronic compensated dilated cardiomyopathy
- etiology unknown, he has not completed prior stress testing as recommended.
- EF 25-30% on echo 02/2023; has declined BiV ICD recommendations from Dr. Novoa.
- GDMT is limited by patient declining therapies.
Afib - paroxysmal.
- stable, denies palpitations.
- Asensed Vpaced on tele.
- Pradaxa as an outpatient, held since 05/04/23 in preparation for circumcision surgery/hematuria.
PINEDA - acute on chronic CKD3, follows with nephrology.
- Del Real catheter.
Phimosis - chronic.
- per Urology.
- sepsis UTI treated with ABX per ID/hospitalist.
Complete heart block with normally functioning PPM - Biotronik dual chamber device.
Subjective:
No CP or dyspnea. No syncope.
Physical Exam
Vital Signs/Labs
Vital Signs
Temp Pulse Resp BP Pulse Ox
98 F 66 18 108/61 96
05/12/23 08:38 05/12/23 08:38 05/12/23 08:38 05/12/23 08:38 05/12/23 08:38
05/11/23 05/12/23 05/13/23
06:59 06:59 06:59
Actual Weight 106.169 kg 105.46 kg
05/12/23 05:34
05/12/23 05:34
Magnesium 2.0 mg/dl (1.6-2.3) 05/11/23 05:44
Physical Exam
Cardiovascular: Rhythm & rate is regular and Pedal edema is absent
Respiratory: Respiratory effort normal and Lungs clear to auscul.
GI: Soft and Distention absent
Data Reviewed
-
Date of Service: May 12, 2023
--- NOTE | 2023-05-12 16:39 | CM ---
manager radio reviewed patient's chart and patient has been denied at [facility] however patient has been approved for skilled placement at [facility]. Patient will need COVID test. Luis Gonsalez for skilled and ambulance, Joanne
is aware.
[facility]
Report [phone]
--- NOTE | 2023-05-12 17:51 | PTCARENOTE ---
khanna removed this am, patient unable to urinate, bladder scanned for 220ml. Dr Nair notified and orders received for bladder scan and straight cath if >450 ml. plan of care on going.
[2023-05-12] MEDS: TYLENOL 500 MG PO (23:51)
[2023-05-13 03:26] VITALS: BP 96/66
[2023-05-13 05:12] LABS: % Basophils 0.6 % (0-2); % Eosinophils 1.8 % (0-6); % Immature Granulocytes 2.3 % (0-0.5); % Lymphocytes 13.1 % (20.5-51.1); % Monocytes 11.5 % (1.7-9.3); % Neutrophils 70.7 % (42.2-75.2); Absolute Basophils 0.1 10^3/uL (0-0.2); Absolute Eosinophils 0.2 10^3/uL (0-0.7); Absolute Immature Granulocytes 0.2 10^3/uL (0-0.05); Absolute Lymphocytes 1.1 10^3/uL (1.2-3.4); Absolute Neutrophils 5.9 10^3/uL (1.4-6.5); Hematocrit 39.1 % (39.0-52.0); Mean Corp Hgb Conc. 33.2 g/dL (33.0-37.0); Mean Corpuscular Hgb 30.4 pg (27.0-31.0); Mean Corpuscular Volume 91.4 fL (80.0-94.0); Nucleated Red Blood Cells % 0 % (-); Platelet Count 139 10^3/uL (130-400); Red Blood Cell Count 4.28 10^6/uL (4.70-6.10); Red Cell Dist. Width 14.8 % (11.5-14.5); White Blood Cell Count 8.3 10^3/uL (4.8-10.8)
[2023-05-13 05:39] VITALS: BMI 29.9
[2023-05-13 05:43] LABS: Blood Urea Nitrogen 35 mg/dl (9-20); Calcium 8.6 mg/dl (8.4-10.2); Carbon Dioxide 21 mmol/L (22-30); Chloride 101 mmol/L (98-107); Estimated Creatinine Clearance 37 ml/min; Glucose 118 mg/dl (70-99); Potassium 4.1 mmol/L (3.5-5.1); Sodium 135 mmol/L (135-145); eGFR 41.26
--- NOTE | 2023-05-13 06:00 | PTCARENOTE ---
Patient voiding intermittently throughout night in bathroom with difficulty at times. Bladder scan remained below 450 cc. Patient with mike urine, PRN tylenol given for pain. Plan of care ongoing.
[2023-05-13 07:00] VITALS: BP 129/65
--- NOTE | 2023-05-13 08:34 | W.PN.HOSP.TC ---
Today's Communication/Plan
-
Discharge planning today.
Assessment / Plan
Assessment / Plan
Gen-AAOx3, NAD, obese
HEENT-NC, AT, anicteric, clear oral mm
Neck-supple
CV-reg, no M, +S1/S2
Lungs-clear B/L
Abd-soft, NT, ND
Ext-no edema
Musculoskeletal-no cyanosis, clubbing
Skin-warm and dry
Neuro-grossly non-focal
Psych-calm, cooperative
A/P:
Septic shock -present on admission. Due to UTI, urinary retention, severe phimosis. Blood cultures negative. Urine culture shows Enterococcus faecalis. Appreciate ID input. Now on amoxicillin. White blood cell count improved, afebrile today.
Blood pressure much improved on midodrine 10 mg 3 times daily. Discussed with family at bedside on 05/10. Discussed with urology as well on 05/10. Updated family again on 05/11. Postop he had some witness seizures-->neurology consulted. Del Real
catheter removal per urology. Patient underwent plastic surgical reconstruction of penile skin and circumcision on 05/11/2023. Postop unremarkable. From standpoint cleared for discharge. PT OT reevaluated patient. Neurology recommended
continue current medications. Medically stable for discharge--> waiting for case management/SNF discharge disposition.
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 CT scan shows mild right renal collecting system and right ureteral dilation without obvious radiopaque calculus. Creatinine coming down, 1.7 today.
Baseline appears to be around 1.9
Acute thrombocytopenia -probably due to sepsis. Platelet count improving.
Paroxysmal atrial fibrillation -resume Pradaxa per urology. Also, plan for complex circumcision on May 11 as per urology s/p done.
Severe phimosis -plan for circumcision on May 11. Resume Pradaxa. Given cardiac risk factors, will obtain cardiology preop evaluation-->appreciated cardiology input.
Constipation -increase bowel regimen.
History of non-Hodgkin's lymphoma
Chronic hypogammaglobulinemia -gets as needed IVIG, Dr. Lozano orders as OP after rehab.
Chronic heart failure reduced EF -currently compensated.� Hold furosemide in the setting of PINEDA.� LVEF 25 to 30% on echocardiogram from February 2023, stage I diastolic dysfunction, no significant valvular disease. Given cardiac risk factors,
obtained cardiology preop eval--> appreciated cardiology input
Gout -stable.
History of complete heart block -has permanent pacemaker.
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
Full code
PT/OT -SNF recommended on discharge.
DVT prophylaxis--> cont SCDs and can resume heparin if needed
Addendum:
No ivig and no chemo after surgery-needs to recover from surgery and then can be evaluated several weeks down the road with outpatient oncology if and when needs chemo but none for the conceivable future at this point in time.
Anticipated Discharge: Today
Subjective/Interval History
-
Date of Service: May 13, 2023
Patient denies any chest pain or shortness of breath.
Objective Data
-
Labs:
Laboratory Results
05/13/23
04:24
WBC 8.3
Hgb 13.0
Hct 39.1
Plt Count 139
Sodium 135
Potassium 4.1
Chloride 101
Carbon Dioxide 21 L
BUN 35 H
Creatinine 1.7 H
Glucose 118 H
Calcium 8.6
Vital Signs:
Vital Signs
Temp Pulse Resp BP Pulse Ox
97.7 F 65 16 129/65 95
05/13/23 07:00 05/13/23 07:00 05/13/23 07:00 05/13/23 07:00 05/13/23 07:00
I&O
05/12/23 05/13/23 05/14/23
06:59 06:59 06:59
Intake Total 1060 / 1060
Output Total 2250 / 2250 650 / 650
Balance -1190 / -1190 -650 / -650
Review of Systems
-
All other systems: Reviewed and negative
[2023-05-13] MEDS: CATHFLO/ACTIVASE 2 MG IV (08:47)
[2023-05-13] MEDS: MIRALAX 17 GRAMS PO (09:38)
[2023-05-13] MEDS: PROSCAR 5 MG PO (09:38)
[2023-05-13] MEDS: COLACE 100 MG PO (09:39)
[2023-05-13] MEDS: AMOXIL 500 MG PO (09:39)
[2023-05-13] MEDS: LAMICTAL 200 MG PO (09:39)
[2023-05-13] MEDS: ZYLOPRIM 100 MG PO (09:39)
[2023-05-13] MEDS: FLOMAX 0.400000000000000022 MG PO (09:39)
[2023-05-13] MEDS: ProAmatine 10 MG PO ×2 (09:40→12:37)
[2023-05-13] MEDS: PRADAXA 150 MG PO (09:51)
--- NOTE | 2023-05-13 09:54 | W.DCSUMMARY ---
Discharge Summary
Discharge Data
Date of Admission: 05/05/23
Date of Discharge: 05/13/23
-
Pending Results: No
Hospital Course
Patient 77-year-old male with history of paroxysmal A-fib, non-Hodgkin Phoma, DVT, CVA with traumatic intracranial hemorrhage, seizure disorder, chronic phimosis, presented to the hospital with acute urinary retention and hematuria. Upon admission
he was found to have leukocytosis and significant urinary retention and Del Real catheter could not be passed. Urology was consulted as well as ID. Patient had to be taken to the OR and urology due to foreskin dilation, anal dilation, flexible
cystoscopy, and had a 20 [place] tip urinary catheter placement on 05/05. Patient blood cultures remain no growth but urine cultures grew Enterococcus faecalis. He was appropriately treated with IV antibiotics that was later switched to oral
antibiotics. ID felt that he finishes antibiotics as inpatient and recommended to not continue antibiotics upon discharge. This patient had an outpatient circumcision scheduled but given his complicated history urology took him to the OR again on
05/11 and he did plastic surgical reconstruction of the penile skin along with circumcision. Cardiology evaluated him preop and optimized him. His anticoagulation was held in anticipation for surgery but restarted by recommendation of cardiology
and clearance by urology on 05/13. Del Real catheter was removed postop and he has been voiding spontaneously. Urology cleared him for discharge today. He has been recommended rehab by physical therapy and he is going to go to rehab upon discharge
today in relatively stable condition.
Discharge duration: 35 minutes
Discharge Plan
-
Patient Disposition: Intermediate/SNF
Discharge Diagnosis/Procedures: Septic shock. Urinary tract infection due to Enterococcus faecalis. Acute kidney injury. Chronic kidney disease stage III. Benign prostatic hypertrophy. Thrombocytopenia. Paroxysmal atrial fibrillation. Severe
phimosis status post circumcision. Constipation. History of non-Hodgkin lymphoma. History of chronic hypogammaglobulinemia. Chronic systolic congestive heart failure. History of gout. History complete heart block with pacemaker. History of
deep vein thrombosis and pulmonary embolism status post IVC filter in the past.
Diet: Low Cholesterol and Restrict fluids to 48 oz
Activity: As tolerated
Blood Work: Please PCP to order CBC BMP within 1 week
Specialty Instructions: Weigh Daily- Call MD for wt gain/loss 3 lbs overnight/5 lbs in 1 week
Referrals:
Sorin Hough MD [Active] - in four to six weeks
Kashif Berg MD [Active] - in one to two weeks
Kingston Pace MD [Active] - in one to two months
Kingston Luu MD [Family Provider] - in less than 1 week
Prescriptions:
New
polyethylene glycol 3350 [HealthyLax] 17 gram Powder In Packet
17 g PO DAILY 10 Days Qty: 0 0RF
midodrine 5 mg Tablet
10 mg PO TID@0800,1300,1800 30 Days Qty: 0 0RF
docusate sodium 100 mg Capsule
100 mg PO BID 10 Days Qty: 20 0RF
Continued
allopurinol 100 MG tablet
100 mg PO BID
tamsulosin 0.4 MG capsule
0.4 mg PO DAILY Qty: 30 0RF
finasteride 5 MG tablet
5 mg PO DAILY Qty: 30 0RF
dabigatran etexilate 150 mg Capsule
150 mg PO BID
Jardiance 10 mg Tablet
10 mg PO DAILY
furosemide [Lasix] 40 MG tablet
40 mg PO MOWEFR@0800
lamotrigine 200 mg Tablet
200 mg PO BID
lidocaine-prilocaine 2.5-2.5 % Cream
1 applic TOPICAL DIRECTED
Patient Comments:
05/05/2023, apply to port site 1 hr before infusion.
acetaminophen [Tylenol Extra Strength] 500 mg Tablet
500 mg PO Q4HPRN PRN (Reason: mild pain)
Discharge Orders:
Discharge Patient (As Directed); Ordered 05/13/23
Ordered By: Derick Johnathan Tang
Discharge Date and Time
Discharge Date/Time: 05/13/23 18:44
--- NOTE | 2023-05-13 10:43 | W.PN.URO.CBU ---
Today's Communication / Plan
-
Eliquis resumed today
Patient voiding, despite being largely bedbound
Will sign off
Assessment / Plan
-
urinary retention
phimosis s/p circumcision 05/11/23
UTI
Diagnosis
-
Date of Service: May 13, 2023
-
Patient Diagnosis:
phimosis with urinary retention: s/p plastic surgical reconstruction/circumcision 05/11/23
enterococcal UTI
Subjective
-
Fatigued
Voiding volitionally and w/o dysuria
Objective
-
Vital Signs
Temp Pulse Resp BP Pulse Ox
97.7 F 65 16 129/65 95
05/13/23 07:00 05/13/23 07:00 05/13/23 07:00 05/13/23 07:00 05/13/23 07:00
Intake and Output
05/12/23 05/13/23 05/14/23
06:59 06:59 06:59
Intake Total 1060 / 1060
Output Total 2250 / 2250 650 / 650
Balance -1190 / -1190 -650 / -650
Intake:
Oral fluids 960 / 960
IV fluids (Total) 100 / 100
normosol 100 / 100
Output:
Urine, Del Real 1475 / 1475
Urine, Voided 775 / 775 650 / 650
Laboratory Results
05/13/23 04:24
05/13/23 04:24
Review of Systems
-
Constitutional: Fatigue
Respiratory: No Symptoms
Cardiac: No Symptoms
Abdomen/GI: No Symptoms
: No Symptoms
Physical Exam
-
General - well nourished, no acute distress
Abdomen - no CVAT or distention
Genitalia - incision lines clean/dry, no ecchymosis
Neuro - AOx3, no motor deficits
[2023-05-13 11:00] VITALS: BP 114/68
[2023-05-13 12:08] LABS: COVID-19 Antigen Negative (Negative)
--- NOTE | 2023-05-13 13:32 | W.PN.ID1 ---
Date of Service
Date of Service: May 13, 2023
Today's Communication
Sign off.
Assessment / Plan
Leukocytosis
Enterococcal UTI (complicated)
PINEDA on CKD
Chronic phimosis s/p Del Real placement in OR.
Hx immunoglobulin deficiency
Paroxysmal A-fib
Non-Hodgkin lymphoma
DVT
CVA (traumatic intracranial hemorrhage)
Seizure disorder
Hx of basal cell CA
Chronic heart failure
Diverticulosis
Recommendations:
Patient currently day #9 antibiotics. Del Real catheter now out.
Can D/C further antibiotics at this point.
Little more to offer from an Infectious Disease standpoint.
Will see again at your request.
����������������������������������������������������������
Chief Complaint
-: UTI
Subjective / Review of Systems
Review of Systems: No Fever and No Chills
Vital Signs / Physical Exam
Vital Signs
Vital Signs
Temp Pulse Resp BP Pulse Ox
98.0 F 97 18 114/68 95
05/13/23 11:00 05/13/23 11:00 05/13/23 11:00 05/13/23 11:00 05/13/23 11:00
Physical Exam
Constitutional: No Acute Distress, Comfortable and Non-toxic
Eyes: Sclera Anicteric
Cardiovascular: S1/S2; Negative S3/S4
Pulmonary: Non Labored
Genito-Urinary: Other (Penile/scrotal incisions C/D/I)
Neurological: Awake and Alert
Psychological: Calm
Objective Data
Lab Data
Lab Results
05/13/23 04:24
05/13/23 04:24
Estimated Creat Clear 37 ml/min 05/13/23 04:24
Lactic Acid Cancelled 05/11/23 18:32
Total Bilirubin 0.6 mg/dl (0.2-1.3) 05/12/23 05:34
AST 39 U/L (17-59) 05/12/23 05:34
ALT 49 U/L (0-50) 05/12/23 05:34
Alkaline Phosphatase 95 U/L (38-126) 05/12/23 05:34
Most recent labs reviewed.
Micro Results:
05/05/23 12:06 Blood Culture - Final
Blood/Venous No Growth - Final Report
05/05/23 12:06 Blood Culture - Final
Blood/Venous No Growth - Final Report
05/05/23 12:06 Urine Culture - Final
Urine Enterococcus faecalis
Urine Culture Final 05/07/23-1017
CC: Greater than 100,000 CFU/ML Enterococcus faecalis
Organism 1 Enterococcus faecalis
1. Enterococcus faecalis
M.I.C. RX
--------- ---
Ampicillin <=2 S
Gentamicin Synergy Screen <=500 S
Levofloxacin <=1 S
Nitrofurantoin-Urine Only <=32 S
Tetracycline >8 R
Vancomycin 2 S
Imaging:
05/05/2023 CT abdomen/pelvis without contrast: Mild right renal collecting system and right ureteral dilatation without findings to suggest radiopaque calculus. Unopacified urinary bladder, limited, without gross focal intrinsic abnormalities. IVC
filter is in place. Sigmoid diverticulosis noted. Please see full dictation for additional detail.
[2023-05-13 15:00] VITALS: BP 110/70
--- NOTE | 2023-05-13 16:14 | CM ---
CM following re: d/c planning
Chart reviewed
Pt is medically stable for d/c
DIANA met with the patient and his spouse to discuss discharge plan
Pt to be discharged to once [facility] auth obtained
DIANA communicated with Joanne hennessy/Luis who confirmed she'd be initiate the auth for SNF d/c
Auth details provided below
DIANA completed [facility] & inhouse transport form and provided to the --transport time confirmed for 5:15pm with Acute Care
IMM was reviewed and copy provided
Rapid covid (-)
DIANA sent an email to Aisha in admissions at to confirm transport time and will fax copy to the facility
No additional d/c needs to note
PLAN; d/c to SNF
Report: [phone]

Pt approved for 7 days skilled level 1
SOC 05/13/23 with NRD 05/19/23
Auth. # [id number]
call Luis for concurrent review option #5 or fax [phone]
--- NOTE | 2023-05-13 17:14 | VATNOTE ---
right subq port deaccessed per protocol. brisk blood return noted prior to.
--- NOTE | 2023-05-13 18:53 | PTCARENOTE ---
Attempted to call [facility] for report with number provided by case managment [phone]. No answer after multiple attempts and voicemail stated as being full.
== END 2023-05-13 18:44 | DRG 853 ==
LOC: 4 EAST ACU 13:11
PROVIDERS: Specialist; ADMITTING PHYSICIAN Hospitalist; ATTENDING PHYSICIAN Hospitalist; CONSULT PHYSICIAN Internal Medicine; CONSULT PHYSICIAN Internal Medicine Infectious Disease; CONSULT PHYSICIAN Psychiatry & Neurology Neurology; EMERGENCY PHYSICIAN Emergency Medicine; FAMILY PHYSICIAN Family Medicine
PROC: 0T9B70Z Drainage of Bladder with Drainage Device, Via Natural or Artificial Opening (ICD-10-PCS; 2023-05-06)
PROC: 0D7Q7ZZ Dilation of Anus, Via Natural or Artificial Opening (ICD-10-PCS; 2023-05-06)
PROC: 0T7D7ZZ Dilation of Urethra, Via Natural or Artificial Opening (ICD-10-PCS; 2023-05-06)
PROC: 0VTTXZZ Resection of Prepuce, External Approach (ICD-10-PCS; 2023-05-11)
PROC: 0VQSXZZ Repair Penis, External Approach (ICD-10-PCS; 2023-05-11)
DX: A41.9 Sepsis, unspecified organism (principal); R65.21 Severe sepsis with septic shock; C85.90 Non-Hodgkin lymphoma, unspecified, unspecified site; I50.22 Chronic systolic (congestive) heart failure; I42.0 Dilated cardiomyopathy; N17.9 Acute kidney failure, unspecified; I44.2 Atrioventricular block, complete; N39.0 Urinary tract infection, site not specified; D80.1 Nonfamilial hypogammaglobulinemia; N47.1 Phimosis; K59.00 Constipation, unspecified; I48.0 Paroxysmal atrial fibrillation; Z86.711 Personal history of pulmonary embolism; Z86.718 Personal history of other venous thrombosis and embolism; N18.32 Chronic kidney disease, stage 3b; M10.9 Gout, unspecified; N40.0 Benign prostatic hyperplasia without lower urinary tract symptoms; C44.91 Basal cell carcinoma of skin, unspecified; Z87.820 Personal history of traumatic brain injury; Z95.0 Presence of cardiac pacemaker; R31.0 Gross hematuria; G40.909 Epilepsy, unspecified, not intractable, without status epilepticus; B95.2 Enterococcus as the cause of diseases classified elsewhere; D69.6 Thrombocytopenia, unspecified
CPT/HCPCS: 88304; 51798; 74176; 80048; 80053; 80202; 81003; 81015; 82962; 83735; 85025; 85027; 87040; 87077; 87086; 87186; 87811; 93005; 96361; 96374; 97163; 97164; 97167; 97530; 97535; 99291; J2997

== ENCOUNTER 2024-07-05 14:15 | Inpatient (IN) | payer OTHER, SELFPAY ==
[2024-07-05 09:51] VITALS: BP 118/82
[2024-07-05 10:44] LABS: ALT (SGPT) 25 U/L (0-50); AST (SGOT) 28 U/L (17-59); Albumin 4.2 g/dl (3.5-5.0); Alkaline Phosphatase 93 U/L (38-126); Blood Urea Nitrogen 21 mg/dl (9-20); Calcium 9.3 mg/dl (8.4-10.2); Carbon Dioxide 23 mmol/L (22-30); Chloride 109 mmol/L (98-107); Glucose 112 mg/dl (70-99); Potassium 4.4 mmol/L (3.5-5.1); Sodium 143 mmol/L (135-145); Total Protein 6.9 g/dl (6.3-8.2); eGFR 38.29
[2024-07-05 11:10] VITALS: BMI 35.8
--- NOTE | 2024-07-05 11:20 | ED.GENMED ---
History of Present Illness
General
Chief Complaint: Swelling
Source: patient and spouse
Exam Limitations: none
Time Seen by Provider: 07/05/24 10:59
Nursing documentation reviewed up to this point in time: agreed with
History of Present Illness
History of Present Illness:
78-year-old male presents emergency department due to bilateral lower extremity swelling and shortness of breath. Shortness of breath worsening over the past week, leg swelling persistent. Patient has a history of atrial fibrillation, has a
Biotronik pacemaker, and takes pradaxa.
Past History
Past History
ED Past Medical History: Other (Non-Hodgkin's lymphoma, DVT, traumatic intracranial hemorrhage)
ED Past Surgical History: Other (Craniotomy/evacuation of hematoma)
Social History
Tobacco: Non-smoker
Alcohol: None
Drug: None
Personal:
Living: with family
Employment: Retired
Family History
Family History: Other
Review of Systems
Review of Systems
Allergies reviewed?: Yes
All Other Systems: Not applicable
Constitutional: Reports no symptoms
EENT: Reports no symptoms
Respiratory: Reports trouble breathing
Cardiac: Reports no symptoms
ABD/GI: Reports no symptoms
: Reports no symptoms
Musculoskeletal: Reports edema
Skin: Reports rash
Neurological: Reports no symptoms
Endocrine: Reports no symptoms
Hematologic/Lymphatic: Reports no symptoms
Psychiatric: Reports no symptoms
Phy Exam
Physical Exam
Physical Exam:
Physical Exam
General: no apparent distress, not acutely ill
Neck: supple. no meningeal signs. normal posterior pharynx
Heart: s1/s2 tachycardia, no murmur. equal radial
pulses.
HEENT: Pupils equal round reactive to light, EOMI
Lungs: no acute respiratory distress. clear bilaterally
Abdomen: normal bowel sounds. not tender. no CVAT
Neuro: alert and oriented. no focal neurological deficits cranial nerves II through XII intact
Skin: Erythema bilateral lower extremities
Psychiatric: well kept. interactive and cooperative
Extremities: Bilateral tibial edema. no calf tenderness. negative homans. good distal pulses
Scores
Heart Failure Risk
Heart Failure Risk Score: Yes
History of Stroke or TIA: No
History of intubation for respiratory distress: No
Heart rate on ED arrival >/= 110: No
SaO2 <90% on arrival on room air: No
HR >/=110 during 3min walk test (or too ill to perform test): No
ECG has acute ischemic changes: No
Urea >/=12mmol/L (BUN 33.6mg/dL): No
Serum CO2>/=35mmol/L: No
Troponin I or T elevated to [place] Level (0.4mg/dL): No
NT-proBNP >/=5,000ng/L (5,000pg/ml): Yes
HF Risk Score: 1
Admission Status: MEDIUM RISK 5.1% Consider observation or discharge to home with homecare & f/u visit to PCP/Payroll Lead, or SNF for treatment
Course
Orders/Labs/Results
Orders:
Orders
07/05/24 09:54
Electrocardiogram (*1) Urgent
Reason for Study: Shortness of Breath
EKG- Treatment ONCE
07/05/24 10:07
Comprehensive Metabolic Panel Urgent
07/05/24 11:04
Add On- LAB Urgent
Comments:: troponin
Tests Added?: troponin
07/05/24 11:10
Complete Blood Count/With Diff Urgent
NT-proBNP Urgent
Troponin I Urgent
Comment: ADD ON TO COMP
07/05/24 11:20
CR Chest - 2 Views Urgent
Comment:
Reason For Exam: short of breath
US Periph Venous LOWER Ext Fredi Urgent
Comment:
Reason For Exam: bilateral leg swelling
07/05/24 14:00
Admit/Transfer Patient As Directed
Co-Sign Provider:
Level of Care: Inpatient admission
Assign to:: Telemetry
Physician / Group: kay
Diagnosis: chf exacerbation
Reason for Telemetry: Arrhythmia
Date to Stop Telemetry: 07/08/24
Time to Stop Telemetry: 11:00
Reason for Hospitalization: chf exacerbation
Expected length of stay greater than two midnights?: Yes
ELOS- Estimated Length of Stay in days: 2
I certify the patient meets the requirements for IP care: Yes
PRN Pain Medication Management As Directed
May give lesser potent ordered pain med per pt: Yes
preference::
Protocol:: Medication orders for pain may be administered in a
manner that supports deferring to patient preference
when the pt is:
- Requesting an ordered lesser potent pain medication.
Least to most potent pain medications are defined
as: acetaminophen < NSAID < tramadol < opioids
(morphine, oxycodone, hydromorphone).
- Requesting a lesser dose of the same medication IF
ORDERED.
- Requesting a less intrusive route of administration
if both routes are prescribed by the provider (PO <
IV).
07/05/24 14:01
Code Status As Directed
Resuscitation Status: Full Code
07/05/24 14:02
Furosemide [Lasix] 40 mg IV NOW STA
07/08/24 11:00
DC Protocol for Telemetry ONCE
Abnormal Lab Results
07/05/24 07/05/24
10:07 11:10
RBC 4.31 L 10^6/uL
(4.70-6.10)
Hgb 12.9 L g/dL
(13.0-18.0)
MCHC 32.0 L g/dL
(33.0-37.0)
RDW 15.8 H %
(11.5-14.5)
MPV 11.5 H fL
(7.4-10.4)
Absolute Lymphs (auto) 0.9 L 10^3/uL
(1.2-3.4)
Absolute Monos (auto) 0.7 H 10^3/uL
(0.1-0.6)
Lymphocytes % 15.7 L %
(20.5-51.1)
Monocytes % 13.3 H %
(1.7-9.3)
Chloride 109 H mmol/L
(98-107)
BUN 21 H mg/dl
(9-20)
Creatinine 1.8 H mg/dL
(0.7-1.3)
Glucose 112 H mg/dl
(70-99)
07/05/24 11:10
07/05/24 10:07
Vital Signs
Initial and Last Documented VS:
Initial Vital Signs
Temp Pulse Resp BP Pulse Ox
98.1 F 106 18 118/82 98
07/05/24 09:51 07/05/24 09:51 07/05/24 09:51 07/05/24 09:51 07/05/24 09:51
Last Documented Vital Signs
Temp Pulse Resp BP Pulse Ox
98.1 F 82 16 107/82 98
07/05/24 13:49 07/05/24 13:49 07/05/24 13:49 07/05/24 13:49 07/05/24 13:49
MDM/Problems Addressed
Differential Diagnosis Includes:
CHF, pneumonia, DVT
MDM/Problems Addressed:
78 yo male with chf exaceration. No pneumonia or dvt. Admit to hospitalist.
Chronic conditions affecting care: Cardiomyopathy and Arrhythmia
Acute Exacerbation and/or Progression of Chronic Illness: Cardiomyopathy
*Radiology
Radiology exam reviewed: preliminary read by ED provider (cxr: pulmonary edema) and radiology read reviewed (US: b'l lower ext: no dvt)
*Pulse Oximetry
Patient hypoxic: no
*EKG
Interpreted by ED Provider?: Yes
EKG Intrepretation Date: 07/05/24
EKG Intrepretation Time: 09:58
Interpretation: abnormal
Comparison EKG: changes noted
Heart Rate: 97
Rate: normal
Rhythm: sinus and av sequential
Escalante: normal axis
Interval: normal interval
QRS Pattern: normal QRS
Ischemia: non-specific ST changes
*Contract Project Manager Interpretation
Rate: normal
Interpretation: abnormal
Heart Rate: 97
Rhythm: sinus and av sequential
*Critical Care Note
Total Time (30-74mins, 75-104mins- exclusive of procedures): Not Applicable
Data Reviewed
Review of Other/Old Records Reveals: Labs (cr: 1.7 05/13/24)
Source: records
Patient Management
Social determinants of health affecting care: Living situation and Strong social support
Discussion with other providers: Hospitalist
Escalation/DeEscalation of care consider admission/obs:
admit indicated
ED Attending Note
-
Portions of this chart may have been created with voice recognition software.� Occasional wrong word or��sound alike� substitutions may have occurred due to the inherent limitations of voice recognition software.
Discharge Plan
Departure
Patient Disposition: Admit
Date of Disposition: 07/05/24
Time of Disposition: 13:28
Admit to: Telemetry
Presentation/result/management discussed w/ accepting MD/DO: Hospitalist
Patient with high blood pressure during this ER visit?: No
Condition: Good
Discharge Problem:
Acute exacerbation of CHF (congestive heart failure)
Interventions
Interventions:
*Risk Screen - Suicide Last Done: 07/05/24 09:50
*General Assessment Last Done: 07/05/24 09:50
*ED COVID-19 Vaccine History Last Done: 07/05/24 09:51
ED- Cardiac Assessment Last Done: 07/05/24 11:38
ED- Pulmonary Assessment Last Done: 07/05/24 11:38
ED-Skin Assessment Last Done: 07/05/24 11:37
[2024-07-05 11:39] LABS: % Basophils 0.7 % (0-2); % Eosinophils 1.8 % (0-6); % Immature Granulocytes 0.4 % (0-0.5); % Lymphocytes 15.7 % (20.5-51.1); % Monocytes 13.3 % (1.7-9.3); % Neutrophils 68.1 % (42.2-75.2); Absolute Eosinophils 0.1 10^3/uL (0-0.7); Absolute Lymphocytes 0.9 10^3/uL (1.2-3.4); Absolute Monocytes 0.7 10^3/uL (0.1-0.6); Absolute Neutrophils 3.7 10^3/uL (1.4-6.5); Hematocrit 40.3 % (39.0-52.0); Hemoglobin 12.9 g/dL (13.0-18.0); Mean Corpuscular Hgb 29.9 pg (27.0-31.0); Mean Corpuscular Volume 93.5 fL (80.0-94.0); Mean Platelet Volume 11.5 fL (7.4-10.4); Nucleated Red Blood Cells % 0 % (-); Platelet Count 132 10^3/uL (130-400); Red Blood Cell Count 4.31 10^6/uL (4.70-6.10); Red Cell Dist. Width 15.8 % (11.5-14.5); White Blood Cell Count 5.4 10^3/uL (4.8-10.8)
[2024-07-05 11:45] LABS: NT-proBNP 5510 pg/ml
[2024-07-05 12:50] VITALS: BP 115/83
[2024-07-05 13:49] VITALS: BP 107/82
[2024-07-05 14:00] VITALS: BP 111/82
--- NOTE | 2024-07-05 14:05 | HPS.HSE ---
Family Physician
-
Family Physician: Kingston Luu
Chief Complaint
-
shortness of breath
History of Present Illness
78-year-old male past medical history of paroxysmal atrial fibrillation on Pradaxa, chronic HFpEF, complete heart block with permanent pacemaker, non-Hodgkin's lymphoma, DVT/PE, CVA with traumatic intracranial hemorrhage, seizure disorder, chronic
phimosis, CKD 3B, constipation, chronic hypogammaglobinemia, gout, presenting with bilateral lower extremity edema and shortness of breath for the past week. Shortness of breath worsening over the past week. He has dry cough. Increased lower
extreme edema. No weight gain. He takes Lasix once a day 40 mg 3 times a week.
Denies smoking or alcohol use.
Medical History
Past Medical History
Past Medical History: Reports Other (paroxysmal atrial fibrillation on Pradaxa, chronic HFpEF, complete heart block with permanent pacemaker, non-Hodgkin's lymphoma, DVT/PE, CVA with traumatic intracranial hemorrhage, seizure disorder, chronic
phimosis, CKD 3B, constipation, chronic hypogammaglobinemia, gout,)
Past Surgical History: Reports Other (Other (Craniotomy/evacuation of hematoma))
Social History
Tobacco: Non-smoker
Alcohol: None
Drug: None
Family History
Family History: Not pertinent
Allergies / Home Medications
Allergies reflects when Allergies were last updated in [employer].
Home Medications with original date entered in [employer]
Allergy/Medication List:
Allergies
Allergy/AdvReac Type Severity Reaction Status Date / Time
acetaminophen [From Percocet] Allergy Unknown Verified 07/05/24 09:53
influenza virus vaccine, Allergy pt states Verified 07/05/24 09:53
specific got sick
[Influenza Virus over the
Vacc,Specific] years with
flu shots,
has not cao
Influenza Virus Vaccines Allergy Unknown Verified 07/05/24 09:53
oxycodone [From Percocet] Allergy Unknown Verified 07/05/24 09:53
Home Medications
allopurinol 100 mg tablet 100 mg PO BID Gout 03/21/20
finasteride 5 mg tablet 5 mg PO DAILY #30 tabs 03/27/20
tamsulosin 0.4 mg capsule 0.4 mg PO DAILY #30 caps 03/27/20
dabigatran etexilate 150 mg capsule 150 mg PO BID Blood Clot Prevention/Tx 05/05/23
empagliflozin 10 mg tablet (Jardiance) 10 mg PO DAILY Heart Failure 05/05/23
furosemide 40 mg tablet (Lasix) 40 mg PO MOWEFR@0800 Fluid Retention/Swelling 05/05/23
lamotrigine 200 mg tablet 200 mg PO BID Seizures 05/05/23
Review of Systems
-
History Source: Patient
A 12 point ROS was completed and negative except as noted: Yes
Constitutional: Reports No Symptoms
EENT: Reports No Symptoms
Respiratory: Reports See HPI
Cardiac: Reports See HPI
Abdomen/GI: Reports No Symptoms
: Reports No Symptoms
Musculoskeletal: Reports No Symptoms
Skin: Reports No Symptoms
Neurological: Reports No Symptoms
Endocrine: Reports No Symptoms
Hematologic/Lymphatic: Reports No Symptoms
Psych: Reports No Symptoms
Physical Exam
Vital Signs
Vital Signs
Temp Pulse Resp BP Pulse Ox
98.1 F 82 16 107/82 98
07/05/24 13:49 07/05/24 13:49 07/05/24 13:49 07/05/24 13:49 07/05/24 13:49
Physical Exam
General: Well Developed, Well Nourished and No Apparent Distress
HEENT: NormoCephalic, Moist mucous membranes and Atraumatic
Respiratory: Clear
Cardiac: S1/S2, Regular Rhythm and Peripheral Edema; No Murmur or Rub
GI: Soft, Non Tender, Non Distended and Normal Bowel Sounds; No Organomegaly
Rectal: Deferred by Provider
Musculoskeletal: No Clubbing, No Cyanosis and No Edema
Skin: No Rash
Neuro: Nonfocal/grossly intact
Laboratory Results
-
07/05/24 11:10
07/05/24 10:07
Laboratory Results
Total Bilirubin 1.0 mg/dl (0.2-1.3) 07/05/24 10:07
AST 28 U/L (17-59) 07/05/24 10:07
ALT 25 U/L (0-50) 07/05/24 10:07
Alkaline Phosphatase 93 U/L (38-126) 07/05/24 10:07
Troponin I Cancelled 07/05/24 11:12
Data Reviewed
-
Lab Data: Labs Reviewed by me
Old Records: Reviewed
Impression/Plan
-
IMPRESSION:
PLAN:
# Acute HFrEF exacerbation
-Cardiac BNP 5500
-Chest x-ray appears to show pulmonary congestion, report pending
-Echo from last year shows EF of 25 to 30%
-40 IV Lasix twice daily
-Check echo
-Continue Jardiance
-Cardiology consulted
Paroxysmal atrial fibrillation
-Continue Pradaxa
Complete heart block status post permanent pacemaker
Orthostatic hypotension
-Continue midodrine
CKD 3B
-Renal function at baseline
Severe phimosis
Constipation
-Continue bowel regimen
Non-Hodgkin's lymphoma
Hypogammaglobinemia
Gout
-Continue allopurinol
History of DVT/PE
History of CVA traumatic intracranial hemorrhage status post craniotomy
-On prophylactic lamotrigine for seizures
BPH
-Continue tamsulosin, finasteride
Full code
DVT prophylaxis�Pradaxa
Cardiac diet
[2024-07-05] MEDS: LASIX 40 MG IV (14:13)
--- NOTE | 2024-07-05 14:42 | CON.CAR ---
Addendum entered and electronically signed by Sung Novoa MD 07/05/24 17:29:
I saw and examined the patient.
The ASSISTANT DRAFTER's note was reviewed and I agree with the note.
Comment:
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
He will need diuresis but he will benefit from chronic lymphedema therapy.
He has not been will to have an LV lead added for heart failure treatment nor to advance GDMT.
He seems more willing to advance GDMT.
Will provide diuresis and as BP and K+/Cr allows advance GDMT.
He at times reports no chest pain and at other times says he has had chest pain. Will see if that changes with treatment of heart failure. He has declined stress testing in the past.
Original Note:
Consultation
Consultation Request
Date/Time Consultation Requested: 07/05/24 1432
Date/Time Consultation Performed: 07/05/24 1445
Requesting Provider: Dr. Tsang
Performing Provider: Kenyetta ROCHE for Dr. Novoa
Reason for Consultation: CHF
Medical History
-
Chief Complaint: ROJAS, LE edema
History of Present Illness:
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
lymphoma who is here for ROJAS and worsened LE edema with redness and is admitted for management of CHF exacerbation. He has had weight gain as well, with orthopnea, PND. Otherwise, he had a cough recently and was placed on doxycycline course. He is
in no distress at the time of my assessment. His is at the bedside. No CP.
Past Medical History
Past Medical History: Arrhythmias, Cancer, CHF and Other
Social History
Tobacco: Non-Smoker
Family History
Family History: Reviewed & Not Pertinent
Allergies / Home Medications
Allergy/AdvReac Type Severity Reaction Status Date / Time
acetaminophen [From Percocet] Allergy Unknown Verified 07/05/24 09:53
influenza virus vaccine, Allergy pt states Verified 07/05/24 09:53
specific got sick
[Influenza Virus over the
Vacc,Specific] years with
flu shots,
has not cao
Influenza Virus Vaccines Allergy Unknown Verified 07/05/24 09:53
oxycodone [From Percocet] Allergy Unknown Verified 07/05/24 09:53
�Medication �Instructions �Recorded �Confirmed �Type
allopurinol 100 mg tablet 100 mg PO BID Gout 03/21/20 07/05/24 History
finasteride 5 mg tablet 5 mg PO DAILY #30 tabs 03/27/20 07/05/24 Rx
tamsulosin 0.4 mg capsule 0.4 mg PO DAILY #30 caps 03/27/20 07/05/24 Rx
dabigatran etexilate 150 mg capsule 150 mg PO BID Blood Clot 05/05/23 07/05/24 History
Prevention/Tx
empagliflozin 10 mg tablet 10 mg PO DAILY Heart Failure 05/05/23 07/05/24 History
(Jardiance)
furosemide 40 mg tablet (Lasix) 40 mg PO MOWEFR@0800 Fluid 05/05/23 07/05/24 History
Retention/Swelling
lamotrigine 200 mg tablet 200 mg PO BID Seizures 05/05/23 07/05/24 History
Review of Systems
-
History Source: Patient
All other systems: Negative unless noted
Constitutional: Weight Gain
Respiratory: Cough and Trouble Breathing
Musculoskeletal: Edema
Skin: Other (redness)
Physical Exam
Vital Signs
Temp Pulse Resp BP Pulse Ox
98.1 F 82 16 107/82 98
07/05/24 13:49 07/05/24 13:49 07/05/24 13:49 07/05/24 13:49 07/05/24 13:49
Lab Results
07/05/24 11:10
07/05/24 10:07
Troponin I Cancelled 07/05/24 11:12
Uqi-X-[id number] Pept 5510 pg/ml 07/05/24 11:10
Physical Exam
General: Well Developed, Well Nourished and No Apparent Distress
HEENT: Normocephalic and Anicteric
Respiratory: Crackles (right base)
Cardiac: Regular Rhythm and Peripheral Edema
Musculoskeletal: Edema
Skin: Warm, Dry and Other (redness to legs, BL)
Neuro: Awake, Alert and Oriented
Psych: Calm
Impression / Plan
-
HFrEF:
-patient with rales, orthopnea, PND, and weight gain. Thinks dry weight is 231 lbs. Currently 242 if ER weight correct.
-acute on chronic
-agree with IV lasix, which requires intensive monitoring
-CHF education
-Of note, LE edema noted in past and related to post-phlebitic syndrome (preceding CHF diagnosis), so chronic, but now worsened
-update echo
Cardiomyopathy, EF 25-30%:
-on Jardiance- continue
-OP notes reviewed and GDMT has been limited by hypotension, but also by the fact that patient and his did not want to advance med therapy as OP, and declined w/u for CM, and declined device upgrade. GDMT also limited by renal dysfunction.
PAF:
-stable in SR
-continue dabigatran for OAC- [id number] score is 3 for age, CHF
CKD:
-monitor with diuresis
Pacemaker:
-follow telemetry
Data Reviewed
-
EKG: Tracing Personally Visualized and interpreted ( DRAINAGE INSPECTOR, SR)
Radiology: Image Personally Visualized and interpreted (awaiting official radiology review, but evidence for excess volume to my review)
Ultrasound: Report Reviewed by me (PVU: no DVT)
Medical Tests (Nuc Med, Echo etc): Report Reviewed by me (Echo 02/24/23: Left ventricle is mildly dilated. Severely reduced left ventricular systolic function. LV ejection fraction is 25-30% by visual assessment. Stage I diastolic dysfunction
suggestive of abnormal relaxation. No significant valvular disease. )
Labs: Labs Reviewed by me
[2024-07-05 18:01] VITALS: BP 120/80
[2024-07-05 18:02] VITALS: BMI 35.2
[2024-07-05] MEDS: ZYLOPRIM 100 MG PO (19:48)
[2024-07-05] MEDS: LAMICTAL 200 MG PO (19:48)
[2024-07-05] MEDS: PRADAXA 150 MG PO (19:48)
[2024-07-05 23:46] VITALS: BP 115/72
[2024-07-06 03:19] VITALS: BP 105/69
[2024-07-06 05:26] VITALS: BMI 35.2
[2024-07-06 07:00] VITALS: BP 105/69
[2024-07-06] MEDS: LASIX 40 MG IV (07:39)
[2024-07-06] MEDS: PROSCAR 5 MG PO (07:39)
[2024-07-06] MEDS: FARXIGA 10 MG PO (07:39)
[2024-07-06] MEDS: LAMICTAL 200 MG PO ×2 (07:39→20:11)
[2024-07-06] MEDS: FLOMAX 0.4 MG PO (07:39)
[2024-07-06] MEDS: PRADAXA 150 MG PO ×2 (07:40→20:11)
[2024-07-06] MEDS: ZYLOPRIM 100 MG PO ×2 (07:53→20:11)
[2024-07-06 07:57] LABS: Hematocrit 40.9 % (39.0-52.0); Mean Corp Hgb Conc. 31.8 g/dL (33.0-37.0); Mean Corpuscular Hgb 29.5 pg (27.0-31.0); Platelet Count 137 10^3/uL (130-400); Red Cell Dist. Width 15.6 % (11.5-14.5); White Blood Cell Count 5.3 10^3/uL (4.8-10.8)
--- NOTE | 2024-07-06 08:10 | W.PN.HOSP.TC ---
Addendum entered and electronically signed by Gama Zheng MD 07/06/24 15:09:
Acute on chronic HFrEF exacerbation with known EF of 10 to 15%, refused biV icd/pacer
-80 mg IV Lasix twice a day per cardiology recommendations
-Continue Farxiga
-Will need to be started on a BB, will discuss this with cardiology as I do not see a reason a contraindication for BB as this has been shown to improve M&M
- Cannot provide ACEi/ARB/Neprilysn/MRA due to renal dysfunction
Chronic venous stasis changes along with Lymphedema
-Outpatient lymphedema clinic follow up
-Compression stockings
PAFib
Continue pradaxa
Complete HB
S/p PPM
Original Note:
Today's Communication/Plan
-
-IV Lasix increased to 80 mg -cardio following
-Follow BMP and CBC
Assessment / Plan
Assessment / Plan
# Severe acute on chronic HFrEF
-Cardiac BNP 5500
-Echo from 2022 shows EF of 25 to 30%
-Echo 07/06/2024: LVEF 10-15%, LV dilated, mild MR, mod TR, PASP 58, RA 15, c/w 2022 EF has fallen from 25-30% and TR is new
-Chest x-ray: Mild bilateral findings concerning for developing pneumonia--WBC in WNL and no fever no chills -likely secondary to pulmonary congestion due acute HF given echo results
-Continue diuresis with IV Lasix-dose adjusted to 80 mg by cardio
-Continue Jardiance
-GDMT medications is planning with the caution to renal dysfunction and hypotension
-Plan cardiac catheterization regarding kidney function improvement, by cardiology
#CKD 3B
-Renal function at baseline
-Creatinine 1.8 (likely at baseline)
-Follow renal function with diuresis
# Bilateral chronic lower extremity edema: Likely multifactorial
-Improvement reported by the patient following received IV Lasix
-Seems worsened secondary to Acute exacerbation of heart failure
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
#Paroxysmal atrial fibrillation
-Sinus rhythm for now
-Continue Pradaxa
-[id number] score is 3 for age, CHF
#Complete heart block status post permanent pacemaker
-Follow telemetry
#Orthostatic hypotension
-Continue midodrine
#Severe phimosis
#Constipation
-Continue bowel regimen
#Non-Hodgkin's lymphoma
#Hypogammaglobinemia
#Gout
-Continue allopurinol
#History of DVT/PE
#History of CVA traumatic intracranial hemorrhage status post craniotomy
-On prophylactic lamotrigine for seizures
BPH
-Continue tamsulosin, finasteride
Full code
DVT prophylaxis�Pradaxa
Anticipated Discharge: 24 - 48 hours
Subjective/Interval History
-
Date of Service: July 06, 2024
Patient reports feeling better and denies shortness of breath. He denies chest pain, back pain and abdominal pain. Reports his legs swelling get worse and over the last 2 weeks.
Objective Data
-
Labs:
Laboratory Results
07/06/24
06:28
WBC 5.3
Hgb 13.0
Hct 40.9
Plt Count 137
Sodium Pending
Potassium Pending
Chloride Pending
Carbon Dioxide Pending
BUN Pending
Creatinine Pending
Glucose Pending
Calcium Pending
Total Bilirubin Pending
AST Pending
ALT Pending
Alkaline Phosphatase Pending
Vital Signs:
Vital Signs
Temp Pulse Resp BP Pulse Ox
97.3 F 101 18 105/69 98
07/06/24 03:19 07/06/24 03:19 07/06/24 03:19 07/06/24 03:19 07/06/24 03:19
I&O
07/05/24 07/06/24 07/07/24
06:59 06:59 06:59
Intake Total 240 / 240
Output Total 1175 / 1175
Balance -935 / -935
Review of Systems
-
History Source: Patient
Constitutional: Reports No Symptoms
EENT: Reports No Symptoms Reported
Respiratory: Reports No Symptoms
Cardiac: Reports No Symptoms
Abdomen/GI: Reports No Symptoms
Genitourinary: Reports No Symptoms
Musculoskeletal: Reports Other (Generalized weakness)
Skin: Reports No Symptoms
Neuro: Reports No Symptoms
Physical Exam
-
General: Well Developed, Well Nourished, Appears Chronically Ill and Obese
HEENT: Normocephalic and Atraumatic
Respiratory: Clear to Auscultation
Cardiac: Regular Rhythm and S1/S2
GI: Soft, Nontender and Nondistended
Musculoskeletal: Edema, Left Upper Extrem and Edema, Right Lower Extrem
Skin: Warm and Other (On bilateral extremity, skin seems thickened with pigmentation)
Neuro: Awake, Alert, Oriented and AO x 3
Psych: Calm
[2024-07-06 08:50] LABS: ALT (SGPT) 22 U/L (0-50); AST (SGOT) 23 U/L (17-59); Albumin 3.9 g/dl (3.5-5.0); Alkaline Phosphatase 93 U/L (38-126); Blood Urea Nitrogen 26 mg/dl (9-20); Carbon Dioxide 25 mmol/L (22-30); Chloride 106 mmol/L (98-107); Estimated Creatinine Clearance 42 ml/min; Glucose 98 mg/dl (70-99); Potassium 4.2 mmol/L (3.5-5.1); Total Protein 6.4 g/dl (6.3-8.2); eGFR 38.29
--- NOTE | 2024-07-06 08:50 | CARDSERVLU ---
Echocardiogram with Lumason completed after protocol screening completed. Allergies verified.
Patent IV site: _R AC____
IV site flushed with 0.9% NaCl pre and post administration.
Diluted bolus method utilized to enhance visualization of ventricular servin.
Total volume given: __2.5 __ mL
Patient tolerated all procedures well without complications.
[2024-07-06 09:01] LABS: Sodium 142 mmol/L (135-145)
--- NOTE | 2024-07-06 10:02 | W.PN.CD ---
Addendum entered and electronically signed by Sung Novoa MD 07/06/24 10:12:
Lasix will be increased from 40 IV BID to 80 IV BID
Labs will be followed
Original Note:
Today's Communication / Plan
-
Diuresis
Will advance GDMT once a bit more decongested
If renal fxn improves we may offer cath, otherwise just med Rx
Will again offer upgrade to BiV
Impression / Plan
-
Acute on chronic HFrEF, severe
- Echo 07/06/2024: LVEF 10-15%, LV dilated, mild MR, mod TR, PASP 58, RA 15, c/w 2022 EF has fallen from 25-30% and TR is new
- Still needs diuresis
- Of note, LE edema noted in past and related to post-phlebitic syndrome (preceding CHF diagnosis), so chronic, but now worsened
- As able will advance GDMT
Cardiomyopathy, EF 10-15% from 25-30% in 2022:
- on Jardiance- continue
- OP notes reviewed and GDMT has been limited by hypotension, but also by the fact that patient and his did not want to advance med therapy as OP, and declined w/u for CM, and declined device upgrade to BiV pacer or BiV ICD.
- GDMT also limited by renal dysfunction. But will advance as able
PAF:
-stable in SR
-continue dabigatran for OAC- [id number] score is 3 for age, CHF
CKD:
-monitor with diuresis
- 2018 Cr 1
- 03/2020 Cr 3.5
- Last year 1.6-2
Complete Heart Block, s/p Pacemaker:
-follow telemetry
Subjective:
Not sure he feels better
Physical Exam
Vital Signs/Labs
Vital Signs
Temp Pulse Resp BP Pulse Ox
97.5 F 81 16 105/69 94
03/27/25 07:00 07/06/24 07:00 07/06/24 07:00 07/06/24 07:00 07/06/24 07:00
07/05/24 07/06/24 07/07/24
06:59 06:59 06:59
Actual Weight 108.125 kg
07/06/24 06:28
07/06/24 06:28
07/05/24
11:10
Bri-X-Dkgbbvsimho Pept 5510
LAB Results
07/05/24 07/05/24
11:10 11:12
Troponin I 0.030 Cancelled
Physical Exam
Constitutional: No acute distress
EENT: Anicteric
Cardiovascular: Rhythm & rate is regular and Pedal edema present (3+)
Respiratory: Respiratory effort normal and Crackles Present
GI: Soft and Distention absent
Neuro/Psych: Alert
Data Reviewed
-
Date of Service: July 06, 2024
[2024-07-06 11:00] VITALS: BP 109/71
--- NOTE | 2024-07-06 11:27 | CM ---
Initial assessment completed. Patient is a 78-year-old male past medical history of paroxysmal atrial fibrillation on Pradaxa, chronic HFpEF, complete heart block with permanent pacemaker, non-Hodgkin's lymphoma, DVT/PE, CVA with traumatic
intracranial hemorrhage, seizure disorder, chronic phimosis, CKD 3B, constipation, chronic hypogammaglobinemia, gout, presenting with bilateral lower extremity edema and shortness of breath for the past week.
Patient resides w/ spouse in a [facility]. Patient is independent w/ ambulating and ADLs. Has RW, rollator, WC and commode. Patient prev known to [facility], prev known to [facility] and [facility] for skilled rehab. Prev known to [facility] in the past.
Address, point of contact and insurance verified
PCP: Kingston Luu
Pharmacy: [facility]
Plan: Anticipate home; no needs
[2024-07-06] MEDS: LASIX 80 MG IV (13:42)
[2024-07-06] MEDS: FLUSH (NSS) 1 FLUSH IV (13:45)
[2024-07-06 15:00] VITALS: BP 97/71
[2024-07-06] MEDS: LASIX IV (17:13)
[2024-07-06 20:27] VITALS: BP 115/73
[2024-07-06 23:00] VITALS: BP 109/70
[2024-07-07 04:00] VITALS: BP 113/70
[2024-07-07 05:40] VITALS: BMI 34.5
[2024-07-07 06:22] LABS: Hemoglobin 12.2 g/dL (13.0-18.0); Mean Corp Hgb Conc. 32.1 g/dL (33.0-37.0); Mean Corpuscular Hgb 29.6 pg (27.0-31.0); Mean Corpuscular Volume 92.2 fL (80.0-94.0); Mean Platelet Volume 11.9 fL (7.4-10.4); Platelet Count 142 10^3/uL (130-400); Red Blood Cell Count 4.12 10^6/uL (4.70-6.10); Red Cell Dist. Width 15.5 % (11.5-14.5); White Blood Cell Count 5.5 10^3/uL (4.8-10.8)
[2024-07-07 06:44] LABS: ALT (SGPT) 21 U/L (0-50); AST (SGOT) 23 U/L (17-59); Albumin 3.9 g/dl (3.5-5.0); Alkaline Phosphatase 91 U/L (38-126); Blood Urea Nitrogen 30 mg/dl (9-20); Calcium 8.9 mg/dl (8.4-10.2); Carbon Dioxide 27 mmol/L (22-30); Chloride 103 mmol/L (98-107); Estimated Creatinine Clearance 37 ml/min; Glucose 112 mg/dl (70-99); Potassium 3.6 mmol/L (3.5-5.1); Sodium 141 mmol/L (135-145); Total Bilirubin 0.9 mg/dl (0.2-1.3); Total Protein 6.1 g/dl (6.3-8.2); eGFR 33.74
[2024-07-07 07:00] VITALS: BP 100/68; BP 113/68
[2024-07-07] MEDS: LASIX 80 MG IV ×2 (08:33→16:04)
[2024-07-07] MEDS: FLOMAX 0.4 MG PO (08:34)
[2024-07-07] MEDS: FARXIGA 10 MG PO (08:34)
[2024-07-07] MEDS: ZYLOPRIM 100 MG PO ×2 (08:34→20:10)
[2024-07-07] MEDS: PRADAXA 150 MG PO ×2 (08:34→20:04)
[2024-07-07] MEDS: LAMICTAL 200 MG PO ×2 (08:34→20:04)
[2024-07-07] MEDS: PROSCAR 5 MG PO (08:34)
--- NOTE | 2024-07-07 09:51 | CM ---
CM following re: discharge planning.
Reviewed pt's chart, met with pt.
According to MD, pt will need Outpatient lymphedema clinic to follow up. Pt has information.
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
IMM reviewed, placed on chart, pt has a copy.
D/C plan: home with anticipated no needs. Spouse to transport at discharge.
CM will follow with discharge plan updates as hospitalization progresses
[2024-07-07 11:00] VITALS: BP 113/68
--- NOTE | 2024-07-07 12:20 | W.PN.HOSP.TC ---
Addendum entered and electronically signed by Gama Zheng MD 07/07/24 14:42:
NAD
Scleral Anicteric
MMM
Bibasilar crackle
RRR, S1/S2
Soft, NT, ND, BS+
Warm, Dry
Bilateral lower extremities edema/pitting 1+, chronic venous stasis changes
AAOx3
Calm
Acute on chronic HFrEF exacerbation with known EF of 10 to 15%, refused biV icd/pacer
-80 mg IV Lasix twice a day per cardiology recommendations
-Continue Farxiga
-Will need to be started on a BB, will discuss this with cardiology as I do not see a reason a contraindication for BB as this has been shown to improve M&M
- Cannot provide ACEi/ARB/Neprilysn/MRA due to renal dysfunction
CKD stage IIIb
-Avoid neprhtoxins and hypotension
-UOP
Chronic venous stasis changes along with Lymphedema
-Outpatient lymphedema clinic follow up
-Compression stockings
PAFib
Continue pradaxa
Complete HB
S/p PPM
Original Note:
Today's Communication/Plan
-
-Nephrology consulted
-Carvedilol 3.125 mg BID started
-Follow BMP
Assessment / Plan
Assessment / Plan
# Severe acute on chronic HFrEF
-Cardiac BNP 5500
-Echo from 2022 shows EF of 25 to 30%
-Echo 07/06/2024: LVEF 10-15%, LV dilated, mild MR, mod TR, PASP 58, RA 15, c/w 2022 EF has fallen from 25-30% and TR is new
-Chest x-ray: Mild bilateral findings concerning for developing pneumonia--WBC in WNL and no fever no chills -likely secondary to pulmonary congestion due acute HF given echo results
-Continue diuresis with IV Lasix-dose adjusted to 80 mg by cardio on 07/07/27
-Continue Jardiance
-Cardiology on board
-Recommended to start on carvedilol 3.[address] Kevin Novoa
#CKD 3B
-Creatinine increased to 2.0 on 07/07/24 ( Baseline likely 1.6-1.8)
-Follow renal function with diuresis
# Bilateral chronic lower extremity edema: Likely multifactorial
-Improvement following IV Lasix
-Seems worsened secondary to Acute exacerbation of heart failure
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
#Paroxysmal atrial fibrillation
-Sinus rhythm for now
-Continue Pradaxa
-[id number] score is 3 for age, CHF
#Complete heart block status post permanent pacemaker
-Follow telemetry
#Orthostatic hypotension
-Continue midodrine
#Severe phimosis
#Constipation
-Continue bowel regimen
#Non-Hodgkin's lymphoma
#Hypogammaglobinemia
#Gout
-Continue allopurinol
#History of DVT/PE
#History of CVA traumatic intracranial hemorrhage status post craniotomy
-On prophylactic lamotrigine for seizures
BPH
-Continue tamsulosin, finasteride
Full code
DVT prophylaxis�Pradaxa
Anticipated Discharge: 24 - 48 hours
Subjective/Interval History
-
Date of Service: July 07, 2024
Patient reports improvement with his symptoms. He denies shortness of breath, chest pain and back pain.
Objective Data
-
Labs:
Laboratory Results
07/07/24
05:55
WBC 5.5
Hgb 12.2 L
Hct 38.0 L
Plt Count 142
Sodium 141
Potassium 3.6
Chloride 103
Carbon Dioxide 27
BUN 30 H
Creatinine 2.0 H
Glucose 112 H
Calcium 8.9
Total Bilirubin 0.9
AST 23
ALT 21
Alkaline Phosphatase 91
Vital Signs:
Vital Signs
Temp Pulse Resp BP Pulse Ox
97.8 F 84 18 157/77 98
07/07/24 07:00 07/07/24 07:00 07/07/24 07:00 07/07/24 08:33 07/07/24 11:47
I&O
07/06/24 07/07/24 07/08/24
06:59 06:59 06:59
Intake Total 240 / 240 940 / 940
Output Total 1175 / 1175 3200 / 3200
Balance -935 / -935 -2260 / -2260
Review of Systems
-
History Source: Patient
Constitutional: Reports No Symptoms
EENT: Reports No Symptoms Reported
Respiratory: Reports No Symptoms
Cardiac: Reports No Symptoms
Abdomen/GI: Reports No Symptoms
Genitourinary: Reports No Symptoms
Musculoskeletal: Reports Other (Generalized weakness)
Skin: Reports No Symptoms
Neuro: Reports No Symptoms
Physical Exam
-
General: Well Developed, Well Nourished, Appears Chronically Ill and Obese
HEENT: Normocephalic and Atraumatic
Respiratory: Clear to Auscultation
Cardiac: Regular Rhythm and S1/S2
GI: Soft, Nontender and Nondistended
Musculoskeletal: No Clubbing, No Cyanosis, Edema, Right Lower Extrem and Edema, Left Lower Extrem
Skin: Warm
Neuro: Awake, Alert, Oriented and AO x 3
Psych: Calm
--- NOTE | 2024-07-07 12:32 | W.CON.NEPH ---
Consultation
-
Date/Time Consultation Requested: 07/07/2024 12:15 PM
Date/Time Consultation Performed: 07/07/2024 12:15 PM
Requesting Provider: Dr. Malloy
Performing Provider: Dr. Flores
Reason for Consultation: Chronic kidney disease stage III
Medical History
-
Chief Complaint: CKD stage III
History of Present Illness:
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
1.8 -2), LE edema related to post-phlebitic syndrome, hx lymphoma who is here for ROJAS and worsened LE edema with redness and is admitted for management of CHF exacerbation. He has had weight gain as well, with orthopnea, PND. Nephrology was
consulted for CKD
Past Medical History
CKD stage IIIb with baseline creatinine of 1.8-2
Cardiomyopathy with a EF of 15%
Paroxysmal A-fib
Pacemaker
History of ITP
Prior history of right hydronephrosis
History of subdural hematoma
Social History
Tobacco: Non-Smoker
Alcohol: None
Family History
No CKD
Allergies / Home Medications
Allergy/AdvReac Type Severity Reaction Status Date / Time
acetaminophen [From Percocet] Allergy Unknown Verified 07/05/24 09:53
influenza virus vaccine, Allergy pt states Verified 07/05/24 09:53
specific got sick
[Influenza Virus over the
Vacc,Specific] years with
flu shots,
has not cao
Influenza Virus Vaccines Allergy Unknown Verified 07/05/24 09:53
oxycodone [From Percocet] Allergy Unknown Verified 07/05/24 09:53
�Medication �Instructions �Recorded �Confirmed �Type
allopurinol 100 mg tablet 100 mg PO BID Gout 03/21/20 07/05/24 History
finasteride 5 mg tablet 5 mg PO DAILY #30 tabs 03/27/20 07/05/24 Rx
tamsulosin 0.4 mg capsule 0.4 mg PO DAILY #30 caps 03/27/20 07/05/24 Rx
dabigatran etexilate 150 mg capsule 150 mg PO BID Blood Clot 05/05/23 07/05/24 History
Prevention/Tx
empagliflozin 10 mg tablet 10 mg PO DAILY Heart Failure 05/05/23 07/05/24 History
(Jardiance)
furosemide 40 mg tablet (Lasix) 40 mg PO MOWEFR@0800 Fluid 05/05/23 07/05/24 History
Retention/Swelling
lamotrigine 200 mg tablet 200 mg PO BID Seizures 05/05/23 07/05/24 History
Review of Systems
-
History Source: Patient
All other systems: Negative unless noted
Constitutional: Weight Gain
Respiratory: Cough and Trouble Breathing
: No Symptoms
Musculoskeletal: Edema
Skin: No Symptoms
Neurological: No Symptoms
Endocrine: No Symptoms
Hematologic/Lymphatic: No Symptoms
Physical Exam
Vital Signs
Vital Signs
Temp Pulse Resp BP Pulse Ox
97.8 F 84 18 157/77 98
07/07/24 07:00 07/07/24 07:00 07/07/24 07:00 07/07/24 08:33 07/07/24 11:47
Lab Results
07/07/24 05:55
07/07/24 05:55
WBC 5.5 10^3/uL (4.8-10.8) 07/07/24 05:55
RBC 4.12 10^6/uL (4.70-6.10) L 07/07/24 05:55
Hgb 12.2 g/dL (13.0-18.0) L 07/07/24 05:55
Hct 38.0 % (39.0-52.0) L 07/07/24 05:55
Plt Count 142 10^3/uL (130-400) 07/07/24 05:55
Sodium 141 mmol/L (135-145) 07/07/24 05:55
Potassium 3.6 mmol/L (3.5-5.1) 07/07/24 05:55
Chloride 103 mmol/L (98-107) 07/07/24 05:55
Carbon Dioxide 27 mmol/L (22-30) 07/07/24 05:55
BUN 30 mg/dl (9-20) H 07/07/24 05:55
Creatinine 2.0 mg/dL (0.7-1.3) H 07/07/24 05:55
eGFR 33.74 07/07/24 05:55
Glucose 112 mg/dl (70-99) H 07/07/24 05:55
Calcium 8.9 mg/dl (8.4-10.2) 07/07/24 05:55
Vuu-M-Hwaubisrlar Pept 5510 pg/ml 07/05/24 11:10
Albumin 3.9 g/dl (3.5-5.0) 07/07/24 05:55
Physical Exam
General: AOx3, Nontoxic , NAD
HEENT: PERRL, EOMI, Anicteric, Conjunctivae Clear, Ear/Nose Intact, Hearing Normal, Oropharynx Clear/Moist, Dentition Intact, Facial Symmetry, Neck Supple, Neck: Trachea Midline, No JVD and No Thyromegaly, no Bruits
Respiratory: Coarse to auscultation bilaterally, fine crackles edema, with normal lung excursion
Cardiac: S1/S2 and Regular Rate/Rhythm
Breast: Deferred by me
Abdomen: Soft, Nontender, Nondistended, Normal Bowel Sounds and No Hepatosplenomegaly
Rectal: Deferred by Provider
Genito-urinary: No Costovertebral Tenderness
Extremities: No Clubbing, No Cyanosis and 2 plus pitting Edema,erythematous venous stasis changes
Skin: No Rash or open lesions
Neuro: Nonfocal/Grossly Intact, CN II-XII (Intact) and Strength (Musculoskeletal exam 5 out of 5 both upper and lower extremities)
Hematologic/Lymphatic: No Cervical Lymphadenopathy, No Submandibular Lymphadenopathy and No Supraclavicular Lymphadenopathy
Psych: Mood/afflect pleasant, Insight/judgement good and Appropriate
Vascular: plus 1
Data Reviewed
-
Radiology: Image Personally Visualized and interpreted (CXR: pacer left lower lobe opacity, interstitial changes)
Labs: Labs Reviewed by me
Old Records: Reviewed (Reviewed lab work from 05/13/2023 creatinine 1.7)
Assessment/Plan
-
Impression
Congestive heart failure
CKD stage IIIb with creatinine 1.7-2
Cardiomyopathy with ejection fraction of 10 to 15%
Paroxysmal atrial fibrillation
Plan:
Diuresis per cardiology
Patient will never be a dialysis candidate due to advanced cardiomyopathy with ejection fraction of 15%
If cardiac catheterization is to be pursued he will be at higher risk for contrast-induced renal failure due to his advanced cardiomyopathy age and CKD stage III
Creatinine is at baseline
Would scan for postvoid bladder residual while diuresing
If creatinine continues to escalate then discontinue SGLT2 inhibitor
We will sign off
[2024-07-07 15:00] VITALS: BP 102/68
--- NOTE | 2024-07-07 17:48 | W.PN.CD ---
Today's Communication / Plan
-
Adding low dose Coreg
Continue IV BID Lasix 80
High risk situation
I explained very poor LVEF and its very poor prognosis in setting of progressive heart failure symptoms and worsened CKD
As outpatient will offer upgrade to BiV, prognosis probably not adequate to offer ICD
Impression / Plan
-
Acute on chronic HFrEF, severe
- Echo 07/06/2024: LVEF 10-15%, LV dilated, mild MR, mod TR, PASP 58, RA 15, c/w 2022 EF has fallen from 25-30% and TR is new
- Still needs diuresis
- Of note, LE edema noted in past and related to post-phlebitic syndrome (preceding CHF diagnosis), so chronic, but now worsened
- As able will advance GDMT
- Pt/ updated on very poor LVEF and very poor prognosis
Cardiomyopathy, EF 10-15% from 25-30% in 2022:
- on Jardiance- continue
- OP notes reviewed and GDMT has been limited by hypotension, but also by the fact that patient and his did not want to advance med therapy as OP, and declined w/u for CM, and declined device upgrade to BiV pacer or BiV ICD. Prognosis not
good enough to consider ICD, would be [employer] pacing candidate, discussed with family, would be outpatient...
- GDMT also limited by renal dysfunction. But will advance as able
PAF:
-stable in SR
-continue dabigatran for OAC- [id number] score is 3 for age, CHF
CKD:
-monitor with diuresis
- 2018 Cr 1
- 03/2020 Cr 3.5
- Last year 1.6-2
Complete Heart Block, s/p Pacemaker:
-follow telemetry
Subjective:
Not sure he feels better
Physical Exam
Vital Signs/Labs
Vital Signs
Temp Pulse Resp BP Pulse Ox
98.3 F 91 20 102/67 98
07/07/24 15:00 07/07/24 16:04 07/07/24 15:00 07/07/24 16:04 07/07/24 15:00
07/06/24 07/07/24 07/08/24
06:59 06:59 06:59
Actual Weight 108.125 kg 105.885 kg
07/07/24 05:55
07/07/24 05:55
07/05/24
11:10
Swl-A-Sxwtebbbouu Pept 5510
LAB Results
07/05/24 07/05/24
11:10 11:12
Troponin I 0.030 Cancelled
Physical Exam
Constitutional: No acute distress
EENT: Anicteric
Cardiovascular: Rhythm & rate is regular and Pedal edema present
Respiratory: Respiratory effort normal, Lungs clear to auscul. and Crackles Present
GI: Soft and Distention absent
Neuro/Psych: AO x 3
Data Reviewed
-
Date of Service: July 07, 2024
[2024-07-07 19:39] VITALS: BP 105/68
[2024-07-07] MEDS: COREG 3.125 MG PO (20:04)
[2024-07-07 23:39] VITALS: BP 97/65
[2024-07-08 03:25] VITALS: BP 105/63
[2024-07-08 06:00] VITALS: BMI 33.6
[2024-07-08 07:00] VITALS: BP 128/72
[2024-07-08 07:02] LABS: Hematocrit 38.4 % (39.0-52.0); Hemoglobin 12.3 g/dL (13.0-18.0); Mean Corpuscular Hgb 29.3 pg (27.0-31.0); Mean Corpuscular Volume 91.4 fL (80.0-94.0); Mean Platelet Volume 11.2 fL (7.4-10.4); Platelet Count 144 10^3/uL (130-400); Red Cell Dist. Width 15.5 % (11.5-14.5); White Blood Cell Count 5.3 10^3/uL (4.8-10.8)
[2024-07-08 07:20] LABS: ALT (SGPT) 21 U/L (0-50); AST (SGOT) 25 U/L (17-59); Albumin 3.6 g/dl (3.5-5.0); Alkaline Phosphatase 85 U/L (38-126); Blood Urea Nitrogen 32 mg/dl (9-20); Calcium 8.8 mg/dl (8.4-10.2); Carbon Dioxide 35 mmol/L (22-30); Chloride 100 mmol/L (98-107); Estimated Creatinine Clearance 33 ml/min; Glucose 110 mg/dl (70-99); Sodium 141 mmol/L (135-145); Total Bilirubin 0.9 mg/dl (0.2-1.3); eGFR 30.09
[2024-07-08] MEDS: COREG 3.125 MG PO ×2 (10:16→20:07)
[2024-07-08] MEDS: FARXIGA 10 MG PO (10:17)
[2024-07-08] MEDS: FLOMAX 0.4 MG PO (10:17)
[2024-07-08] MEDS: LAMICTAL 200 MG PO ×2 (10:17→20:08)
[2024-07-08] MEDS: ZYLOPRIM 100 MG PO ×2 (10:18→20:09)
[2024-07-08] MEDS: PROSCAR 5 MG PO (10:18)
[2024-07-08] MEDS: PRADAXA 150 MG PO ×2 (10:18→20:08)
[2024-07-08] MEDS: LASIX IV (10:33)
--- NOTE | 2024-07-08 10:57 | W.PN.HOSP.TC ---
Today's Communication/Plan
-
Assessment / Plan
Assessment / Plan
NAD
Scleral Anicteric
MMM
Bibasilar crackle
RRR, S1/S2
Soft, NT, ND, BS+
Warm, Dry
Bilateral lower extremities edema/pitting 1+, chronic venous stasis changes
AAOx3
Calm
Acute on chronic HFrEF exacerbation with known EF of 10 to 15%, refused biV icd/pacer
-80 mg IV Lasix twice a day per cardiology recommendations
-Continue Farxiga
-Will need to be started on a BB, will discuss this with cardiology as I do not see a reason a contraindication for BB as this has been shown to improve M&M
- Cannot provide ACEi/ARB/Neprilysn/MRA due to renal dysfunction
CKD stage IIIb
-Baseline renal function around 1.7-2.1
-Avoid neprhtoxins and hypotension
-UOP
Chronic venous stasis changes along with Lymphedema
-Outpatient lymphedema clinic follow up
-Compression stockings
PAFib
Continue pradaxa
Complete HB
S/p PPM
I had a lengthy bedside discussion with and Mr. Doherty about goals of care. Discussed quantity versus quality of life. Discussed irreversible damage to kidneys and heart. Unable to correct heart as unable to do left heart
catheterization due to renal dysfunction and this has been taken off the table. I did mention to them in the very near future he may require hospice. At this time they will think about CODE STATUS DNR/DNI versus full code.
Anticipated Discharge: > 48 hours
Subjective/Interval History
-
Date of Service: July 08, 2024
Seen and examined. No new complaints. No acute overnight events
Still diuresing well
Objective Data
-
Labs:
Laboratory Results
07/08/24
06:44
WBC 5.3
Hgb 12.3 L
Hct 38.4 L
Plt Count 144
Sodium 141
Potassium 4.0
Chloride 100
Carbon Dioxide 35 H
BUN 32 H
Creatinine 2.2 H
Glucose 110 H
Calcium 8.8
Total Bilirubin 0.9
AST 25
ALT 21
Alkaline Phosphatase 85
Vital Signs:
Vital Signs
Temp Pulse Resp BP Pulse Ox
97.5 F 77 16 128/72 95
07/08/24 07:00 07/08/24 10:16 07/08/24 07:00 07/08/24 10:16 07/08/24 07:00
I&O
07/07/24 07/08/24 07/09/24
06:59 06:59 06:59
Intake Total 940 / 940 240 / 240
Output Total 3200 / 3200 2800 / 2800
Balance -2260 / -2260 -2560 / -2560
[2024-07-08 11:00] VITALS: BP 97/63
[2024-07-08] MEDS: LASIX 80 MG IV ×2 (12:07→16:26)
--- NOTE | 2024-07-08 12:07 | W.PN.CD ---
Today's Communication / Plan
-
Continue IV diuresis
Med rx has been advanced
Unfortunately Cr up a bit
Pt wishes to upgrade to BiV Pacer and that will be offered as an outpatient procedure if he has adequate improvement in the short term
Impression / Plan
-
Prognosis
- I reviewed with pt and that prognosis is very poor and may be less than 6 months
Acute on chronic HFrEF, severe, LVEF now 10-15%
- Still needs diuresis
- Of note, LE edema noted in past and related to post-phlebitic syndrome (preceding CHF diagnosis), so chronic, but now worsened
- As able will advance GDMT
- Pt/ updated on very poor LVEF and very poor prognosis
Cardiomyopathy, EF 10-15% from 25-30% in 2022:
- on Jardiance- continue
- OP notes reviewed and GDMT has been limited by hypotension, but also by the fact that patient and his did not want to advance med therapy as OP, and declined w/u for CM, and declined device upgrade to BiV
- Not an ICD candidate, life expectancy too short
- GDMT also limited by renal dysfunction. But will advance as able
PAF:
-stable in SR
-continue dabigatran for OAC- [id number] score is 3 for age, CHF
CKD:
-monitor with diuresis
- 2018 Cr 1
- 03/2020 Cr 3.5
- Last year 1.6-2
Complete Heart Block, s/p Pacemaker:
-follow telemetry
Subjective:
Not sure he feels better.
Physical Exam
Vital Signs/Labs
Vital Signs
Temp Pulse Resp BP Pulse Ox
98.0 F 82 18 97/63 95
07/08/24 11:00 07/08/24 11:00 07/08/24 11:00 07/08/24 11:00 07/08/24 11:00
07/07/24 07/08/24 07/09/24
06:59 06:59 06:59
Actual Weight 105.885 kg 103.164 kg
07/08/24 06:44
07/08/24 06:44
07/05/24
11:10
Nvm-Q-Nzyxzqdqgbt Pept 5510
LAB Results
07/05/24 07/05/24
11:10 11:12
Troponin I 0.030 Cancelled
Physical Exam
Constitutional: No acute distress
Cardiovascular: Rhythm & rate is regular and Pedal edema present
Respiratory: Respiratory effort normal and Lungs clear to auscul.
GI: Soft and Distention absent
Neuro/Psych: AO x 3
Data Reviewed
-
Date of Service: July 08, 2024
[2024-07-08 15:00] VITALS: BP 93/58
[2024-07-08 19:48] VITALS: BP 123/74
[2024-07-08 23:16] VITALS: BP 97/61
[2024-07-09 03:38] VITALS: BP 110/77
[2024-07-09 06:00] VITALS: BMI 33.6
[2024-07-09 07:00] VITALS: BP 109/66
[2024-07-09 08:08] LABS: Blood Urea Nitrogen 33 mg/dl (9-20); Calcium 8.5 mg/dl (8.4-10.2); Carbon Dioxide 31 mmol/L (22-30); Chloride 99 mmol/L (98-107); Estimated Creatinine Clearance 33 ml/min; Glucose 97 mg/dl (70-99); Potassium 3.5 mmol/L (3.5-5.1); Sodium 141 mmol/L (135-145); eGFR 30.09
[2024-07-09] MEDS: COREG 3.125 MG PO ×2 (08:42→19:58)
[2024-07-09] MEDS: PRADAXA 150 MG PO ×2 (08:43→19:57)
[2024-07-09] MEDS: LASIX 80 MG IV ×2 (08:43→16:21)
[2024-07-09] MEDS: FLOMAX 0.4 MG PO (08:44)
[2024-07-09] MEDS: LAMICTAL 200 MG PO ×2 (08:44→19:58)
[2024-07-09] MEDS: FARXIGA 10 MG PO (08:44)
[2024-07-09] MEDS: PROSCAR 5 MG PO (08:44)
[2024-07-09] MEDS: ZYLOPRIM 100 MG PO ×2 (08:44→19:57)
[2024-07-09] MEDS: KCL 40 MEQ PO (09:09)
--- NOTE | 2024-07-09 09:52 | W.PN.CD ---
Today's Communication / Plan
-
Add Zaroxolyn for 3 days
Add spironolactone 12. 5 daily
Later add RAAS-I, likely low dose CELIA-I or Valsartan, BP wont permit Entresto
Likely will offer upgrade to biv pacer as outpatient if patient does not chose hospice care
With med changes will plan for frequent (every 10-14 days) BMPs for a 4-6 weeks
Impression / Plan
-
Prognosis
- On 07/08/2024 I reviewed with pt and that prognosis is very poor and may be less than 6 months
- Today 07/09/2024 I reviewed very poor prognosis with the patient
Acute on chronic HFrEF, severe, LVEF now 10-15%/ Severe dilated cardiomyopathy of unknown etiology. In 2022 LVEF was 25-30% and pt/ declined repeated attempts to evaluate and treat
- Still needs diuresis => will need to add 3 days of Zaroxolyn to Lasix 80 IV BID
- Of note, LE edema noted in past and related to post-phlebitic syndrome (preceding CHF diagnosis), so chronic, but now worsened
- Now on SGLT2-i, starting MRA today 07/09/2024, now on HF BB (low dose). In a few days/next 1-2 weeks if Cr remains stable will add RAAS-I, likely valsartan or lisinopril, BP wont allow Entresto
PAF:
-stable in SR
-continue dabigatran for OAC- [id number] score is 3 for age, CHF
CKD:
-monitor with diuresis
- 2018 Cr 1
- 03/2020 Cr 3.5
- Last year 1.6-2
Complete Heart Block, s/p Pacemaker:
-QRS 152 from RV apical pacing
Subjective:
Not sure he feels better.
Physical Exam
Vital Signs/Labs
Vital Signs
Temp Pulse Resp BP Pulse Ox
98.1 F 80 18 109/66 93
07/09/24 07:00 07/09/24 08:42 07/09/24 07:00 07/09/24 08:42 07/09/24 07:00
07/08/24 07/09/24 07/10/24
06:59 06:59 06:59
Actual Weight 103.164 kg 103.107 kg
07/08/24 06:44
07/09/24 05:55
07/05/24
11:10
Sxa-E-Gshbwhpcxgp Pept 5510
Physical Exam
Constitutional: No acute distress
EENT: Anicteric
Cardiovascular: Rhythm & rate is regular and Pedal edema present (3+bilat edema)
Respiratory: Respiratory effort normal and Crackles Absent
GI: Soft and Distention absent
Neuro/Psych: AO x 3
Data Reviewed
-
Date of Service: July 09, 2024
[2024-07-09] MEDS: ALDACTONE 12.5 MG PO (10:32)
[2024-07-09 11:00] VITALS: BP 95/66
--- NOTE | 2024-07-09 11:20 | W.PN.HOSP.TC ---
Today's Communication/Plan
-
Continue goals of care discussion
-Hospice versus outpatient BiV ICD upgrade
Continue IV diuretics with metolazone
Follow renal function
Assessment / Plan
Assessment / Plan
NAD
Scleral Anicteric
MMM
Bibasilar crackle
RRR, S1/S2
Soft, NT, ND, BS+
Warm, Dry
Bilateral lower extremities edema/pitting 1+, chronic venous stasis changes
AAOx3
Calm
Acute on chronic HFrEF exacerbation with known EF of 10 to 15%, refused biV icd/pacer
-80 mg IV Lasix twice a day per cardiology recommendations, metolazone added
-Continue Farxiga
-Will need to be started on a BB, will discuss this with cardiology as I do not see a reason a contraindication for BB as this has been shown to improve M&M
- Cannot provide ACEi/ARB/Neprilysn/MRA due to renal dysfunction
CKD stage IIIb
-Baseline renal function around 1.7-2.1
-Avoid neprhtoxins and hypotension
-UOP
Chronic venous stasis changes along with Lymphedema
-Outpatient lymphedema clinic follow up
-Compression stockings
PAFib
Continue pradaxa
Complete HB
S/p PPM
I had a lengthy bedside discussion with and Mr. Doherty about goals of care. Discussed quantity versus quality of life. Discussed irreversible damage to kidneys and heart. Unable to correct heart as unable to do left heart
catheterization due to renal dysfunction and this has been taken off the table. I did mention to them in the very near future he may require hospice. At this time they will think about CODE STATUS DNR/DNI versus full code.
-Still have not decided on CODE STATUS
-Overall prognosis grim, life expectancy less than 6 months at this given time, end-stage diagnosis end-stage heart failure
-If determined/decided on hospice would be appropriate
Anticipated Discharge: > 48 hours
Subjective/Interval History
-
Date of Service: July 09, 2024
Seen and examined. No new complaints. No acute overnight events.
at bedside.
Objective Data
-
Labs:
Laboratory Results
07/09/24
05:55
Sodium 141
Potassium 3.5
Chloride 99
Carbon Dioxide 31 H
BUN 33 H
Creatinine 2.2 H
Glucose 97
Calcium 8.5
Vital Signs:
Vital Signs
Temp Pulse Resp BP Pulse Ox
98.1 F 82 18 99/64 93
07/09/24 07:00 07/09/24 10:32 07/09/24 07:00 07/09/24 10:32 07/09/24 10:51
I&O
07/08/24 07/09/24 07/10/24
06:59 06:59 06:59
Intake Total 240 / 240 240 / 240
Output Total 2800 / 2800 1200 / 1200 400 / 400
Balance -2560 / -2560 -960 / -960 -400 / -400
[2024-07-09 15:00] VITALS: BP 95/63
[2024-07-09] MEDS: ZAROXOLYN 5 MG PO (15:49)
[2024-07-09 19:45] VITALS: BP 99/55
[2024-07-09 23:17] VITALS: BP 95/54
[2024-07-10 03:25] VITALS: BP 100/69
[2024-07-10 05:23] VITALS: BMI 32.7
[2024-07-10 07:00] VITALS: BP 97/64
[2024-07-10] MEDS: ZAROXOLYN 5 MG PO (07:22)
[2024-07-10] MEDS: COREG 3.125 MG PO ×2 (07:50→19:42)
[2024-07-10] MEDS: LAMICTAL 200 MG PO ×2 (07:51→19:42)
[2024-07-10] MEDS: PRADAXA 150 MG PO ×2 (07:51→19:42)
[2024-07-10] MEDS: LASIX 80 MG IV (07:52)
[2024-07-10] MEDS: ALDACTONE 12.5 MG PO (07:52)
[2024-07-10] MEDS: PROSCAR 5 MG PO (07:52)
[2024-07-10] MEDS: ZYLOPRIM 100 MG PO ×2 (07:52→19:42)
[2024-07-10] MEDS: FARXIGA 10 MG PO (07:52)
[2024-07-10] MEDS: FLOMAX 0.4 MG PO (07:52)
--- NOTE | 2024-07-10 08:37 | W.PN.HOSP.TC ---
Addendum entered and electronically signed by Berlin Zheng MD 07/10/24 17:44:
I saw and evaluated the patient. I reviewed the resident�s note and agree with findings and plan as documented in the resident�s note.
1. Acute on chronic systolic congestive heart failure -echo showing low EF of 10 to 15%. Currently being diuresed with IV Lasix. Cardiology trying to maximize GDMT. There is consideration of upgrading patient to FISH AND WILDLIFE BIOLOGIST/BiV w/o ICD
2. CKD stage IIIb -monitor renal function. Creatinine has up trended although within known range from previous visits.
3. Paroxysmal A-fib -continue Pradaxa/coreg/aldactone.
Original Note:
Today's Communication/Plan
-
-DC zaroxolyn
-Follow up weight, I/Os
-Follow up BMP
Assessment / Plan
Assessment / Plan
PLAN
#Acute on chronic HFrEF exacerbation
-Cardiology on board
-ECHO noted decreased EF of 10 to 15% comparing previous echo in 2022 noted 25-30% of LVEF
-Patient is not considered for ICD//will have outpatient follow-up with the consideration of upgrading his pacer to a FISH AND WILDLIFE BIOLOGIST/BiV device without ICD, BiV pacer
-Plan to continue Lasix 80 mg once daily and discontinue zaroxolyn
-Patient started recommended to continue on SGLT2-i(Farxiga) and BB(carvedilol 3.125 mg BID) and Spironolactone 12.5 mg daily
-Plan to add RAAS-I, likely valsartan or lisinopril (Entresto) if patient's blood pressure allows
CKD stage IIIb
-Baseline renal function around 1.7-2.1
-Avoid nephrotoxins and hypotension
-Creatinine went up to 2.4
-Discontinued zaroxolyn
-Cautious with diuresis
-Follow up BMP
Chronic venous stasis changes along with Lymphedema
-Outpatient lymphedema clinic follow up
-Compression stockings
PAFib
-Continue Pradaxa
Complete HB
-S/p PPM
CODE STATUS: full code but will think about it to change DNR/DNI
-Overall prognosis grim, life expectancy less than 6 months at this given time, end-stage diagnosis end-stage heart failure
-If determined/decided on hospice would be appropriate
Anticipated Discharge: 24 - 48 hours
Subjective/Interval History
-
Date of Service: July 10, 2024
The patient denies shortness of breath and chest pain. He reports feeling improvement in his lower extremity edema.
Objective Data
-
Labs:
Laboratory Results
07/10/24
07:55
Sodium Pending
Potassium Pending
Chloride Pending
Carbon Dioxide Pending
BUN Pending
Creatinine Pending
Glucose Pending
Calcium Pending
Vital Signs:
Vital Signs
Temp Pulse Resp BP Pulse Ox
98.0 F 81 16 97/64 94
07/10/24 07:00 07/10/24 07:50 07/10/24 07:00 07/10/24 07:50 07/10/24 07:00
I&O
07/09/24 07/10/24 07/11/24
06:59 06:59 06:59
Intake Total 240 / 240 220 / 220
Output Total 1200 / 1200 2225 / 2225
Balance -960 / -960 -2004 /
Review of Systems
-
History Source: Patient
EENT: Reports No Symptoms Reported
Respiratory: Reports No Symptoms
Cardiac: Reports No Symptoms
Abdomen/GI: Reports No Symptoms
Genitourinary: Reports No Symptoms
Musculoskeletal: Reports Other (Generalized weakness)
Skin: Reports No Symptoms
Neuro: Reports No Symptoms
Physical Exam
-
General: Well Developed, Well Nourished, Appears Chronically Ill and Obese
HEENT: Normocephalic and Atraumatic
Respiratory: Clear to Auscultation
Cardiac: Regular Rhythm and S1/S2
GI: Soft, Nontender and Nondistended
Musculoskeletal: No Clubbing, No Cyanosis, Edema, Right Lower Extrem and Edema, Left Lower Extrem
Skin: Warm
Neuro: Awake, Alert, Oriented and AO x 3
Psych: Calm
[2024-07-10 10:39] LABS: Blood Urea Nitrogen 38 mg/dl (9-20); Calcium 9.5 mg/dl (8.4-10.2); Carbon Dioxide 31 mmol/L (22-30); Chloride 93 mmol/L (98-107); Estimated Creatinine Clearance 30 ml/min; Glucose 121 mg/dl (70-99); Potassium 3.5 mmol/L (3.5-5.1); Sodium 140 mmol/L (135-145); eGFR 27.11
[2024-07-10 11:00] VITALS: BP 110/67
--- NOTE | 2024-07-10 11:15 | W.PN.CD ---
Today's Communication / Plan
-
Slow diuresis
No more Zaroxolyn
No more med adjustments as an inpatient
He is not an ICD candidate. He might later be a candidate for upgrade to BiV pacemaker without ICD (TAR MAN-P)
Impression / Plan
-
Prognosis
- very poor prognosis with the patient
- He is not an ICD candidate
- If he improves he might be a candidate to upgrade pacer to a TAR MAN/BiV device without ICD, BiV pacer
Acute on chronic HFrEF, severe, LVEF now 10-15%/ Severe dilated cardiomyopathy of unknown etiology.
- Goal weight is uncertain but likely less than 100 kg
- In 2022 LVEF was 25-30% and pt/ declined repeated attempts to evaluate and treat
- If weights are correct he did very well with Zaroxolyn yesterday and got a dose today
- WILL SLOW DIURESIS now to Lasix 80 mg one time daily and no more zaroxolyn
- Of note, LE edema noted in past and related to post-phlebitic syndrome (preceding CHF diagnosis), so chronic, but now worsened
- Now on SGLT2-i, MRA (low dose), HF BB (low dose).
- In a few weeks if Cr remains stable will add RAAS-I, likely valsartan or lisinopril, BP wont allow Entresto
PAF:
-stable in SR
-continue dabigatran for OAC- [id number] score is 3 for age, CHF
CKD:
-monitor with diuresis
- 2018 Cr 1
- 03/2020 Cr 3.5
- Last year 1.6-2
- Cr up to 2.4 now => slow diuresis now
Complete Heart Block, s/p Pacemaker:
-QRS 152 from RV apical pacing
Subjective:
Feels a bit better
Physical Exam
Vital Signs/Labs
Vital Signs
Temp Pulse Resp BP Pulse Ox
97.5 F 81 16 110/67 96
07/10/24 11:00 07/10/24 11:00 07/10/24 11:00 07/10/24 11:00 07/10/24 11:00
07/09/24 07/10/24 07/11/24
06:59 06:59 06:59
Actual Weight 103.107 kg 100.335 kg
07/08/24 06:44
07/10/24 09:43
07/05/24
11:10
[id number]-R-Jjciktiyyht Pept 5510
Physical Exam
Constitutional: No acute distress
EENT: Anicteric
Cardiovascular: Rhythm & rate is regular and Pedal edema present
Respiratory: Respiratory effort normal and Lungs clear to auscul.
GI: Soft and Distention absent
Neuro/Psych: AO x 3
Data Reviewed
-
Date of Service: July 10, 2024
--- NOTE | 2024-07-10 14:31 | CM ---
Chart reviewed. Care ongoing at this time.
Per hospitalist, patient poss for d/c tomorrow.
No CM needs at this time
Plan: Home; no needs
[2024-07-10 15:00] VITALS: BP 101/69
[2024-07-10 19:35] VITALS: BP 93/60
[2024-07-10 23:30] VITALS: BP 90/53
[2024-07-11 03:30] VITALS: BP 101/69
[2024-07-11 06:00] VITALS: BMI 32.5
[2024-07-11 07:00] VITALS: BP 111/66
--- NOTE | 2024-07-11 07:17 | W.PN.HOSP.TC ---
Today's Communication/Plan
-
Discharge
Assessment / Plan
Assessment / Plan
PLAN
#Acute on chronic HFrEF exacerbation
-Cardiology on board
-ECHO noted decreased EF of 10 to 15% comparing previous echo in 2022 noted 25-30% of LVEF
-Patient is not considered for ICD//will have outpatient follow-up with the consideration of upgrading his pacer to a THERAPEUTIC ACTIVITIES SERVICES WORKER/BiV device without ICD, BiV pacer
-Plan to continue Lasix 80 mg once daily. May need Zaroxolyn prn at home per cardiology
-Patient started recommended to continue on SGLT2-i and BB(carvedilol 3.125 mg BID) and Spironolactone 12.5 mg daily
-Plan to add RAAS-I, likely valsartan or lisinopril (Entresto) if patient's blood pressure allows at outpatient setting with cardiology
CKD stage IIIb
-Baseline renal function around 1.7-2.1
-Avoid nephrotoxins and hypotension
-Creatinine went up to 2.4
-Discontinued zaroxolyn
-Cautious with diuresis
-Follow up BMP
Chronic venous stasis changes along with Lymphedema
-Outpatient lymphedema clinic follow up
-Compression stockings
PAFib
-Continue Pradaxa
Complete HB
-S/p PPM
CODE STATUS: full code but will think about it to change DNR/DNI
-Overall prognosis grim, life expectancy less than 6 months at this given time, end-stage diagnosis end-stage heart failure
-If determined/decided on hospice would be appropriate
Anticipated Discharge: Today
Subjective/Interval History
-
Date of Service: July 11, 2024
The patient denies shortness of breath and chest pain.
Objective Data
-
Labs:
Laboratory Results
07/11/24
06:00
WBC Pending
Hgb Pending
Hct Pending
Plt Count Pending
Sodium Pending
Potassium Pending
Chloride Pending
Carbon Dioxide Pending
BUN Pending
Creatinine Pending
Glucose Pending
Calcium Pending
Vital Signs:
Vital Signs
Temp Pulse Resp BP Pulse Ox
98.0 F 76 14 101/69 92
07/11/24 03:30 07/11/24 03:30 07/11/24 03:30 07/11/24 03:30 07/11/24 03:30
I&O
07/10/24 07/11/24 07/12/24
06:59 06:59 06:59
Intake Total 220 / 220 600 / 600
Output Total 2225 / 2225 2019 / 2019
Balance -2004 / -2004 -1420 / -1420
Review of Systems
-
History Source: Patient
Constitutional: Reports No Symptoms
EENT: Reports No Symptoms Reported
Respiratory: Reports No Symptoms
Cardiac: Reports No Symptoms
Abdomen/GI: Reports No Symptoms
Genitourinary: Reports No Symptoms
Musculoskeletal: Reports Other (Generalized weakness)
Skin: Reports No Symptoms
Neuro: Reports No Symptoms
Physical Exam
-
General: Well Developed, Well Nourished, Appears Chronically Ill and Obese
HEENT: Normocephalic and Atraumatic
Respiratory: Clear to Auscultation
Cardiac: Regular Rhythm and S1/S2
GI: Soft, Nontender and Nondistended
Musculoskeletal: No Clubbing, No Cyanosis, Edema, Right Lower Extrem and Edema, Left Lower Extrem
Skin: Warm
Neuro: Awake, Alert, Oriented and AO x 3
[2024-07-11] MEDS: PRADAXA 150 MG PO (07:24)
[2024-07-11 07:25] VITALS: BMI 32.5
[2024-07-11] MEDS: ZYLOPRIM 100 MG PO (07:25)
[2024-07-11] MEDS: PROSCAR 5 MG PO (07:25)
[2024-07-11] MEDS: LASIX 80 MG PO (07:25)
[2024-07-11] MEDS: ALDACTONE 12.5 MG PO (07:26)
[2024-07-11] MEDS: LAMICTAL 200 MG PO (07:26)
[2024-07-11] MEDS: COREG 3.125 MG PO (07:26)
[2024-07-11] MEDS: FLOMAX 0.4 MG PO (07:26)
[2024-07-11] MEDS: FARXIGA 10 MG PO (07:26)
[2024-07-11 08:17] LABS: Hematocrit 44.9 % (39.0-52.0); Hemoglobin 14.6 g/dL (13.0-18.0); Mean Corp Hgb Conc. 32.5 g/dL (33.0-37.0); Mean Corpuscular Hgb 29.1 pg (27.0-31.0); Mean Corpuscular Volume 89.6 fL (80.0-94.0); Mean Platelet Volume 11.6 fL (7.4-10.4); Platelet Count 168 10^3/uL (130-400); Red Blood Cell Count 5.01 10^6/uL (4.70-6.10); Red Cell Dist. Width 15.1 % (11.5-14.5); White Blood Cell Count 6.1 10^3/uL (4.8-10.8)
--- NOTE | 2024-07-11 08:38 | W.PN.CD ---
Today's Communication / Plan
-
Cardiology will sign off
Will arrange outpatient followup. Office will reach out to patient
Impression / Plan
-
Prognosis
- very poor prognosis
- He is not an ICD candidate
- If he improves he might be a candidate to upgrade pacer to a CLINIC SUPERVISOR/BiV device without ICD, BiV pacer (CLINIC SUPERVISOR-P)
- Reviewed today 07/11/2024 with patient/
Acute on chronic HFrEF, severe, LVEF now 10-15%/ Severe dilated cardiomyopathy of unknown etiology.
- Goal weight is uncertain but likely less than 100 kg
- In 2022 LVEF was 25-30% and pt/ declined repeated attempts to evaluate and treat
- If weights are correct he did very well with Zaroxolyn yesterday and got a dose today
- Now on Lasix 80 mg PO one time daily and no more Zaroxolyn here. May need Zaroxolyn prn at home
- Of note, LE edema noted in past and related to post-phlebitic syndrome (preceding CHF diagnosis), so chronic, but now worsened
- Now on SGLT2-i, MRA (low dose), HF BB (low dose).
- In a few weeks if Cr remains stable will add RAAS-I, likely valsartan or lisinopril, BP wont allow Entresto
PAF:
-stable in SR
-continue dabigatran for OAC- [id number] score is 3 for age, CHF
CKD:
-monitor with diuresis
- 2018 Cr 1
- 03/2020 Cr 3.5
- Last year 1.6-2
- Cr up to 2.4 now => slow diuresis now
Complete Heart Block, s/p Pacemaker:
-QRS 152 from RV apical pacing
Subjective:
Feels a bit better
Physical Exam
Vital Signs/Labs
Vital Signs
Temp Pulse Resp BP Pulse Ox
98.0 F 76 14 101/69 92
07/11/24 03:30 07/11/24 03:30 07/11/24 03:30 07/11/24 03:30 07/11/24 03:30
07/10/24 07/11/24 07/12/24
06:59 06:59 06:59
Actual Weight 100.335 kg 99.904 kg
07/11/24 07:17
07/05/24
11:10
[id number] Pept 5510
Physical Exam
Constitutional: No acute distress
Cardiovascular: Rhythm & rate is regular and Pedal edema present
Respiratory: Respiratory effort normal and Lungs clear to auscul.
GI: Soft and Distention absent
Neuro/Psych: AO x 3
Data Reviewed
-
Date of Service: July 11, 2024
[2024-07-11 08:51] LABS: Blood Urea Nitrogen 46 mg/dl (9-20); Calcium 9.6 mg/dl (8.4-10.2); Carbon Dioxide 32 mmol/L (22-30); Chloride 93 mmol/L (98-107); Estimated Creatinine Clearance 29 ml/min; Glucose 115 mg/dl (70-99); Potassium 3.6 mmol/L (3.5-5.1); Sodium 137 mmol/L (135-145); eGFR 25.82
--- NOTE | 2024-07-11 10:32 | CM ---
Reviewed the chart notes and spoke with the patient and his spouse at the bedside. Patient anticipates being discharged today. IMM reviewed. CM continues to be available to patient/family and is monitoring medical plan for needs at discharge.
Plan: Discharge to home when medically stable. No needs identified at this time. Patient's spouse will provide transportation home.
[2024-07-11 11:30] VITALS: BP 92/69
--- NOTE | 2024-07-11 13:36 | W.PN.UPDATE ---
Update Note
Progress Note Update
I saw and evaluated the patient. I reviewed the resident�s note and agree with findings and plan as documented in the resident�s note.
1. Acute on chronic systolic congestive heart failure -echo showing low EF of 10 to 15%. Cardiology trying to maximize GDMT. There is consideration of upgrading patient to FERRY OPERATOR/BiV w/o ICD. Cardiology recommended for patient to be switched to
oral Lasix 80 mg daily today. Patient will follow-up with cardiology in office. Follow-up prescription for BMP provided.
2. CKD stage IIIb -monitor renal function. Creatinine has up trended although within known range from previous visits.
3. Paroxysmal A-fib -continue Pradaxa/coreg/aldactone.
More than 30 minutes spent in discharge including
Final examination of the patient
Summarizing hospital stay
Instructions for continuing care to all relevant caregivers
Preparation of discharge records, prescriptions, and referral forms
Total time spent (in minutes): 38 mins
--- NOTE | 2024-07-11 14:57 | W.DCSUMMARY ---
Discharge Summary
Discharge Data
Date of Admission: 07/05/24
Date of Discharge: 07/11/24
-
Pending Results: No
Hospital Course
Disposition : Home with home care
Primary care physician : Kingston Luu MD
Principal Discharge diagnosis : Acute on chronic HFrEF exacerbation, CKD stage IIIb
Chronic Discharge diagnosis : Paroxysmal atrial fibrillation, complete heart block with a pacemaker, Chronic venous stasis changes along with Lymphedema, DVT/PE, non-Hodgkin's lymphoma,gout,CVA with traumatic intracranial hemorrhage, seizure
disorder, chronic phimosis, constipation, chronic hypogammaglobinemia.
Hospital Course :
#Acute on chronic HFrEF exacerbation: The patient presented to ER on 07/05/2024 complaining from increased lower extremity edema, dry cough and shortness of breath for the past week. He has an extensive history of cardiac problems. His chest x-ray
showed infiltration and possible pneumonia. Because the patient did not have fever and leukocytosis, he was considered having acute on chronic heart exacerbation. His BNP level was performed elevated to 5500. He was started on diuresis and
consulted to cardiology. His echo showed decreased with ejection fraction significantly to 10 to 15%(the previous echo was from 2022 with EF of 25 to 30%). The patient was started on diuresis with Lasix and Zaroxolyn by cardiology. His symptoms
gradually improved. He did not feel any shortness of breath and his lower extremity swelling decreased with diuresis. His cardiac medications managed carefully due his chronic kidney disease and his blood pressure being on the lower side. He was
started on low-dose of carvedilol and spironolactone and continued on SGLT-i. Additionally his furosemide dose increased to 80 mg daily with a plan to maximize GDMT at outpatient setting. The patient was discussed for alternative treatment options
including upgrade his pacer to a GREEN CHAIN PULLER/BiV device without ICD, BiV pacer (GREEN CHAIN PULLER-P). He will be followed by cardiology at outpatient setting.
#CKD stage IIIb: The patient started on IV Lasix for diuresis to manage his symptoms. His creatinine level started to increase with IV Lasix. Nephrology did assess the patient and the patient was not considered to be a dialysis candidate due to
advanced cardiomyopathy with ejection fraction of 15%. And cardiac catheterization was considered having high risk to his advanced cardiomyopathy, age and CKD stage III. Nephrology recommended to discontinue SGLT 2 inhibitor if creatinine
continues to increase. Patient was given a prescription to have a follow-up with his PCP in a week and follow-up with cardiology team for his medication management.
# Other chronic medical problems: These problems include Paroxysmal atrial fibrillation, complete heart block with a pacemaker, Chronic venous stasis changes along with Lymphedema, DVT/PE, non-Hodgkin's lymphoma,gout,CVA with traumatic intracranial
hemorrhage, seizure disorder, chronic phimosis, constipation, chronic hypogammaglobinemia. They were treated as able to.
Important imaging findings :
07/05/24 chest x-ray
FINDINGS: There is right Port-A-Cath present. This is stable.
Lungs: The lungs show new mild airspace disease in the lateral mid right lung field concerning for pneumonia. There are similar findings on the left.. No pleural effusion or pneumothorax. There is moderate elevation of the right hemidiaphragm.
Heart: The heart is moderately enlarged. There is mild aortic arch calcification. There is left-sided cardiac device.
Osseous structures: Visualized osseous structures are within normal limits.
IMPRESSION:
Mild bilateral findings concerning for developing pneumonia.
Moderate elevation right hemidiaphragm. Stable
07/05/24 US Periph Venous LOWER Ext Bilateral
FINDINGS:
RIGHT LOWER EXTREMITY: The right common femoral, femoral, popliteal and posterior tibial veins are patent without sonographic evidence for deep venous thrombosis.
LEFT LOWER EXTREMITY: The left common femoral, femoral, popliteal and posterior tibial veins are patent without sonographic evidence for deep venous thrombosis.
IMPRESSION:
No sonographic evidence for lower extremity venous thrombosis
Procedure findings :
ECHO 07/06/24
CONCLUSIONS
Mildly dilated LV with severely reduced systolic function.
LVEF is 10-15% by visual estimation. Severe diffuse global hypokinesis.
Normal RV size with reduced systolic function.
Mild mitral regurgitation.
Moderate tricuspid regurgitation.
Estimated pulmonary artery pressure of 58 mmHg assuming a right atrial pressure
of 15 mmHg.
Compared to prior from February 24, 2023, there is new moderate tricuspid
regurgitation with new moderate to severely elevated estimated PASP at 58 mmHg.
Indications:
heart failure
Rhythm: Paced
Portable Study: No
Technical Quality: Fair
Contrast: Lumason
BP: 105 / 69
PROCEDURE
A complete Transthoracic Echocardiogram was performed utilizing two-dimensional
evaluation with color flow and spectral Doppler analysis.
FINDINGS
Left Ventricle
Mildly dilated LV with severely reduced systolic function.
LVEF is 10-15% by visual estimation. Severe diffuse global hypokinesis.
No LVH. Diastolic function indeterminate.
Right Ventricle
Normal RV size with reduced systolic function.
Left Atrium
Indexed LA volume is within normal range (15-34 mL/m2).
Right Atrium
Normal right atrium.
Mitral Valve
Mitral valve opens normally. Mild mitral regurgitation.
Aortic Valve
Structurally normal aortic valve without significant stenosis or regurgitation.
Trileaflet aortic valve.
Tricuspid Valve
Tricuspid valve opens normally. Moderate tricuspid regurgitation. Estimated
pulmonary artery pressure of 58 mmHg assuming a right atrial pressure of 15
mmHg.
Pulmonic Valve
Structurally normal pulmonic valve.
Pericardium\\Pleura
Normal pericardium without effusion. Pleural effusion present.
Aorta
The aortic root is normal in caliber. The aortic arch is normal in caliber.
Aortic arch not well visualized.
Other Finding
The IVC is dilated and does not collapse. Interatrial septum is intact with no
evidence of shunting by color flow Doppler. No intracardiac mass or thrombus
formation seen.
Discharge Plan
-
Patient Disposition: Home with Home Care
Discharge Diagnosis/Procedures: HF exacerbation
Condition: Fair
Diet: 2 Gram Sodium and Restrict fluids to 48 oz
Activity: As tolerated
Driving Restrictions: No driving
Bathing Restrictions: OK to Shower
Instructions: *CBC Heart Failure Instructions
Referrals:
Kingston Luu MD [Family Provider] - in one week
Sung Novoa MD [Active] - 07/19/24 9:20 am
Prescriptions:
New
spironolactone 25 mg Tablet
12.5 mg PO DAILY Qty: 30 2RF
carvedilol 3.125 mg Tablet
3.125 mg PO BID Qty: 60 2RF
furosemide 80 mg Tablet
80 mg PO DAILY Qty: 30 2RF
Continued
allopurinol 100 MG tablet
100 mg PO BID
tamsulosin 0.4 MG capsule
0.4 mg PO DAILY Qty: 30 0RF
finasteride 5 MG tablet
5 mg PO DAILY Qty: 30 0RF
dabigatran etexilate 150 mg Capsule
150 mg PO BID
Jardiance 10 mg Tablet
10 mg PO DAILY
lamotrigine 200 mg Tablet
200 mg PO BID
Discontinued
furosemide [Lasix] 40 MG tablet
40 mg PO MOWEFR@0800
Discharge Orders:
Discharge Patient (As Directed); Ordered 07/11/24
Ordered By: Berlin Zheng
Discharge Date and Time
Discharge Date/Time: 07/11/24 12:13
Print Language: OCCITAN
--- NOTE | 2024-07-12 10:35 | W.HF.CON ---
Heart Failure
- LV Function
Left ventricular function study result: LV Ejection fraction </= 35%
Ejection Fraction Percentage: 10-15
- ARNI
Patient already on ARNI: No
Heart Failure ARNI Contraindication: Acute Renal Failure, Hypotension
- ACEI/ARB
Patient already on ACEI/ARB: No
Heart Failure ACEI/ARB Contraindication: Acute Renal Failure, Hypotension
- Beta Sonu
Patient already on Evidence Based Beta Sonu: Yes
- Mineralocorticord Receptor Antagonist
Patient already on MRA: Yes
- SGLT-2 Inhibitor
Patient already on SGLT-2 Inhibitor: Yes
- Afib Anticoagulation
Patient already on Anticoagulation for Afib: Yes
- NYHA CHF Classification
NYHA CHF Classification Level: Class III - Symptoms w/ min exertion, interferes w/ nml daily activity
- ACC/AHA Stage
ACC/AHA Stage: Stage D: Advanced Heart Failure
== END 2024-07-11 12:13 | disposition home or self-care (01) | DRG 292 ==
LOC: 4 WEST ACU 14:15
PROVIDERS: Student in an Organized Health Care Education/Training Program; ADMITTING PHYSICIAN Hospitalist; ATTENDING PHYSICIAN Hospitalist; CONSULT PHYSICIAN Internal Medicine Cardiovascular Disease; CONSULT PHYSICIAN Specialist; EMERGENCY PHYSICIAN Emergency Medicine; FAMILY PHYSICIAN Family Medicine
DX: I50.43 Acute on chronic combined systolic (congestive) and diastolic (congestive) heart failure (principal); C85.90 Non-Hodgkin lymphoma, unspecified, unspecified site; I42.9 Cardiomyopathy, unspecified; I44.2 Atrioventricular block, complete; I48.0 Paroxysmal atrial fibrillation; N18.32 Chronic kidney disease, stage 3b; Z95.0 Presence of cardiac pacemaker; I89.0 Lymphedema, not elsewhere classified; G40.909 Epilepsy, unspecified, not intractable, without status epilepticus; I70.0 Atherosclerosis of aorta; I95.1 Orthostatic hypotension; Z79.02 Long term (current) use of antithrombotics/antiplatelets; Z79.899 Other long term (current) drug therapy; Z86.2 Personal history of diseases of the blood and blood-forming organs and certain disorders involving the immune mechanism; Z86.711 Personal history of pulmonary embolism; Z86.718 Personal history of other venous thrombosis and embolism; Z86.73 Personal history of transient ischemic attack (TIA), and cerebral infarction without residual deficits
CPT/HCPCS: 71046; 80048; 80053; 83880; 84484; 85025; 85027; 93005; 93306; 93970; 99285; Q9950

== ENCOUNTER → 2024-11-29 12:46 | Outpatient (REF) | payer OTHER, SELFPAY | LOC: RCS 12:46 | PROVIDERS: ATTENDING PHYSICIAN Internal Medicine Cardiovascular Disease; FAMILY PHYSICIAN Family Medicine | DX: I50.22 Chronic systolic (congestive) heart failure (principal) | CPT/HCPCS: 93307; Q9957 ==